=== PATIENT | male | born 1940 | race Caucasian/White ===

== ENCOUNTER 2018-02-27 09:09 | Emergency (ER) | payer OTHER ==
[2018-02-27 10:15] LABS: Absolute Lymphocytes (CBC) 1.2 K/uL (0.7-4.9); Absolute Neutrophil 5.3 K/uL (1.8-8.0); Basophils % 0.4 % (0-1.3); Eosinophils % 0.9 % (0-4.4); Hematocrit 47.3 % (39.6-49.0); Lymphocytes % 15.6 % (15.3-44.8); MCH 29.6 pg (27.0-35.0); MCV 86.9 fL (80-100); MPV 7.9 fL (7.6-11.3); Monocytes % 12.9 % (3.3-12.3); RBC Red Blood Cell Count 5.45 M/uL (4.33-5.43)
[2018-02-27 10:32] LABS: Albumin 3.3 g/dL (3.4-5.0); Bilirubin Direct 0.1 mg/dL (0-0.2); Bilirubin Total 0.4 mg/dL (0.2-1.0); Protein, Total 7.2 g/dL (6.4-8.2)
--- NOTE | 2018-02-27 11:19 | RAD REPORT ---
EXAM DESCRIPTION: CTAbdomen Pelvis W Contrast - 02/27/2018 11:08 am CLINICAL HISTORY: Abdominal pain. iv contrast only;Nausea / vomiting COMPARISON: CT ABD PELVIS W CONTRAST dated 01/29/2014 TECHNIQUE: Biphasic CT imaging of the abdomen and pelvis was performed with 100 ml non-ionic IV cont rast. All CT scans are performed using dose optimization technique as appropriate and may include automated exposure control or mA/KV adjustment according to patient size. FINDINGS: Subtle interstitial lung opacities are present in the posterior right base suggesting scar ring, aspiration or developing pneumonia. The liver demonstrates a couple of tiny low-density lesions, incompletely assessed but likely cysts. No focal liver mass or biliary dilatation. The spleen, pancreas and adrenal glands are normal. Puncta te bilateral nephrolithiasis. No hydronephrosis. Moderate aortic atherosclerosis is seen. No bowel obstruction, free air, free fluid or abscess. Several mildly inflamed small bowel loops are seen in the right lower abdomen. Subtle soft tissue irregularity is seen involving the cecum. The corrie endix is normal. Sigmoid diverticulosis is present without diverticulitis. No evidence of significant lymphadenopathy. Small fat containing inguinal hernias, larger on the left. No suspicious bony findings. IMPRESSION: Several mildly inflamed small bowel loops are present in the right lower quadrant of the abdomen suggesting a nonspecific enteritis. The appendix is normal. 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 Advise follow -up colonoscopy not recently performed. Punctate bilateral nephrolithiasis. Subtle interstitial lung marking prominence in the right base may represent an area of aspiration, sc arring or developing pneumonia.
[2018-02-27] MEDS ORDERED: NA CHLORIDE 0.9% 500 ML ONE (11:52)
[2018-02-27] MEDS ORDERED: ONDANSETRON 4 MG/2 ML VIAL ONE (12:06)
[2018-02-27] MEDS ORDERED: levoFLOXacin 500 MG TAB ONE (12:06)
--- NOTE | 2018-02-27 12:48 | ER ---
Nurse's Notes [facility] Name: Jocelyn Ernst Age: 77 yrs Sex: Male : 1940 Arrival Date: 02/27/2018 Time: 09:12 Bed 5 Private MD: Rudy Dias T Diagnosis: Nausea and vomiting;Diarrhea, unspecified;Pneumonia, unspecified organism;Acute sinusitis Presentation: 02/27 09:51 Presenting complaint: Patient states: n/v/d since Sunday, denies abd pain. Transition sv of care: patient was not received from another setting of care. Onset of symptoms was February 25, 2018. Risk Assessment: Do you want to hurt yourself or someone else? Patient reports no desire to harm self or others. Initial Sepsis Screen: Does the patient meet any 2 criteria? No. Patient's initial sepsis screen is negative. Does the patient have a suspected source of infection? No. Patient's initial sepsis screen is negative. Care prior to arrival: None. 09:51 Method Of Arrival: Ambulatory sv 09:51 Acuity: PUSHPA 3 sv Triage Assessment: 09:54 General: Appears in no apparent distress. comfortable, well developed, Behavior is sv calm, cooperative, appropriate for age. Pain: Denies pain. Neuro: Level of Consciousness is awake, alert, obeys commands, Oriented to person, place, time, situation, Moves all extremities. Full function Gait is steady. Respiratory: Respiratory effort is even, unlabored, Respiratory pattern is regular, symmetrical. GI: Reports diarrhea, nausea, vomiting. Derm: Skin is normal. Historical: - Allergies: 09:53 Augmentin; sv 09:53 Lipitor; sv 09:53 Plavix; sv 09:53 Prednisone; sv 09:53 Toprol XL; sv 09:58 diltasone; sv 09:58 Spiriva with HandiHaler; sv 09:58 Proscar; sv 09:58 Pravachol; sv - PMHx: 09:53 Hyperlipidemia; Hypertension; sv - PSHx: 09:53 Heart Surgery; eye implants; right hand; nostril; left eye laser; Carotid surgery; sv - Immunization history:: Flu vaccine is up to date. - Social history:: Smoking status: Patient/guardian denies using tobacco, Patient uses alcohol, but reports only rare drinking. - Ebola Screening: : No symptoms or risks identified at this time. Screenin:54 Abuse screen: Denies threats or abuse. Denies injuries from another. Nutritional sv screening: No deficits noted. Tuberculosis screening: No symptoms or risk factors identified. Fall Risk None identified. Assessment: 10:53 Reassessment: Patient appears in no apparent distress at this time. No changes from sv previously documented assessment. Patient and/or family updated on plan of care and expected duration. Pain level reassessed. Patient is alert, oriented x 3, equal unlabored respirations, skin warm/dry/pink. Pt stated that he is also having sinus drainage that started maybe last night. Informed Whit PASTEURIZER. 11:57 Reassessment: Pt brought water for PO challenge. sv 12:00 Reassessment: Patient appears in no apparent distress at this time. No changes from sv previously documented assessment. Patient and/or family updated on plan of care and expected duration. Pain level reassessed. Patient is alert, oriented x 3, equal unlabored respirations, skin warm/dry/pink. 12:00 Reassessment: Pt requesting more water. Water given to pt. sv Vital Signs: 09:53 BP 173 / 82; Pulse 78; Resp 18; Temp 98; Pulse Ox 96% ; Weight 99.79 kg; Height 6 ft. 1 sv in. (185.42 cm); Pain 0/10; 10:35 BP 158 / 70; Pulse 62; Resp 18; Pulse Ox 97% ; sv 11:55 BP 165 / 63 LA Supine (auto/lg); Pulse 71; Resp 18; Pulse Ox 97% on R/A; ag 11:55 BP 162 / 81 LA Sitting (auto/lg); Pulse 68; Resp 17; Pulse Ox 95% ; ag 11:55 BP 134 / 65 LA Standing (auto/lg); Pulse 66; Resp 18; Pulse Ox 100% on R/A; ag 09:53 Body Mass Index 29.03 (99.79 kg, 185.42 cm) sv ED Course: 09:12 Patient arrived in ED. sb2 09:13 Rudy Dias MD is Private Physician. sb2 09:43 Molly Hahn, PARRISH is Primary Nurse. sv 09:45 [facility] kb 09:45 Aaron Nixon MD is Attending Physician. kb 09:51 Triage completed. sv 09:53 Arm band placed on Patient placed in an exam room, on a stretcher. sv 09:54 Nurse Practitioner and/or Physician Cardiac Surgeon to see patient. sv 09:54 Patient has correct armband on for positive identification. Placed in gown. Bed in low sv position. Adult w/ patient. Pulse ox on. NIBP on. Door closed. Head of bed elevated. 10:12 Basic Metabolic Panel Sent. ag 10:12 CBC with Diff Sent. ag 10:12 Hepatic Function Sent. ag 10:12 Lipase Sent. ag 10:13 Inserted saline lock: 20 gauge in right antecubital area, using aseptic technique. ag Blood collected. 10:[address] Scan. sv 11:[address] via stretcher. sv 11:08 CT Abd/Pelvis - W/Contrast In Process Unspecified. EDMS 12:47 Rudy Dias MD is Referral Physician. kb 13:12 No provider procedures requiring assistance completed. IV discontinued, intact, ss bleeding controlled, No redness/swelling at site. Pressure dressing applied. Administered Medications: 12:00 Drug: NS 0.9% 500 ml Route: IV; Rate: bolus; Site: right antecubital; sv 13:12 Follow up: IV Status: Completed infusion ss 12:00 Drug: Zofran 4 mg Route: IVP; Site: right antecubital; sv 12:20 Follow up: Response: No adverse reaction; Nausea is decreased sg 12:32 Drug: LevaQUIN 500 mg Route: PO; sg 12:42 Follow up: Response: No adverse reaction sv Outcome: 12:47 Discharge ordered by MD. kb 13:12 Discharged to home ambulatory. ss 13:12 Condition: good 13:12 Discharge instructions given to patient, family, Instructed on discharge instructions, follow up and referral plans. medication usage, Demonstrated understanding of instructions, follow-up care, medications, Prescriptions given X 2. 13:13 Patient left the ED. ss Signatures: Dispatcher [employer] EDIL Whit Medina, GABRIEL RANDOLPH-Molly Chow RN PARRISH Tray Weldon RN RN sg Smirch, Shelby, RN RN Nila Reinoso ag Vanda Penn sb2 Corrections: (The following items were deleted from the chart) 10:05 09:53 Allergies: Demerol; sv sv
--- NOTE | 2018-02-27 12:48 | EDPHYS ---
Physician Documentation [facility] Name: Jocelyn Ernst Age: 77 yrs Sex: Male : 1940 Arrival Date: 02/27/2018 Time: 09:12 Bed 5 Private MD: Rudy Dias T ED Physician Aaron Nixon HPI: 02/27 11:47 This 77 yrs old Male presents to ER via Ambulatory with complaints of kb Nausea/Vomiting/Diarrhea. 11:47 The patient presents to the emergency department with nausea, vomiting, diarrhea. kb 11:47 Onset: The symptoms/episode began/occurred 3 day(s) ago. Possible causes: unknown. The kb symptoms are aggravated by nothing. The symptoms are alleviated by nothing. Associated signs and symptoms: Pertinent positives: diarrhea, nausea, vomiting, Pertinent negatives: abdominal pain, anorexia, belching, constipation, dysuria, fever, flatulence, GI bleeding, hematuria. Severity of symptoms: At their worst the symptoms were moderate in the emergency department the symptoms are unchanged. The patient has not experienced similar symptoms in the past. The patient has not recently seen a physician. Pt reports diarrhea since Sunday morning, nausea and vomiting since last night. States he also has sinus problems. Reports he always has drainage, but it is increased lately. Has been to Dr James for this and was told to take a decongestant, mucinex and flonase, but he hasn't been taking them. Historical: - Allergies: 09:53 Augmentin; sv 09:53 Lipitor; sv 09:53 Plavix; sv 09:53 Prednisone; sv 09:53 Toprol XL; sv 09:58 diltasone; sv 09:58 Spiriva with HandiHaler; sv 09:58 Proscar; sv 09:58 Pravachol; sv - PMHx: 09:53 Hyperlipidemia; Hypertension; sv - PSHx: 09:53 Heart Surgery; eye implants; right hand; nostril; left eye laser; Carotid surgery; sv - Immunization history:: Flu vaccine is up to date. - Social history:: Smoking status: Patient/guardian denies using tobacco, Patient uses alcohol, but reports only rare drinking. - Ebola Screening: : No symptoms or risks identified at this time. ROS: 11:51 Constitutional: Negative for fever, chills, and weight loss, Neck: Negative for injury, kb pain, and swelling, Cardiovascular: Negative for chest pain, palpitations, and edema, : Negative for injury, bleeding, discharge, and swelling, MS/Extremity: Negative for injury and deformity, Skin: Negative for injury, rash, and discoloration, Neuro: Negative for headache, weakness, numbness, tingling, and seizure. 11:51 ENT: Positive for rhinorrhea, sinus congestion, sinus pain. 11:51 Respiratory: Positive for cough, Negative for dyspnea on exertion, hemoptysis, orthopnea, pleurisy, shortness of breath, sputum production, wheezing. 11:51 Abdomen/GI: Positive for nausea, vomiting, and diarrhea, Negative for abdominal pain, constipation, abdominal cramps, abdominal distension, anorexia. Exam: 11:51 Constitutional: This is a well developed, well nourished patient who is awake, alert, kb and in no acute distress. Head/Face: Normocephalic, atraumatic. Neck: Trachea midline, no thyromegaly or masses palpated, and no cervical lymphadenopathy. Supple, full range of motion without nuchal rigidity, or vertebral point tenderness. No Meningismus. Chest/axilla: Normal chest wall appearance and motion. Nontender with no deformity. No lesions are appreciated. Cardiovascular: Regular rate and rhythm with a normal S1 and S2. No gallops, murmurs, or rubs. Normal PMI, no JVD. No pulse deficits. Respiratory: Lungs have equal breath sounds bilaterally, clear to auscultation and percussion. No rales, rhonchi or wheezes noted. No increased work of breathing, no retractions or nasal flaring. Abdomen/GI: Soft, non-tender, with normal bowel sounds. No distension or tympany. No guarding or rebound. No evidence of tenderness throughout. Skin: Warm, dry with normal turgor. Normal color with no rashes, no lesions, and no evidence of cellulitis. MS/ Extremity: Pulses equal, no cyanosis. Neurovascular intact. Full, normal range of motion. Neuro: Awake and alert, GCS 15, oriented to person, place, time, and situation. Cranial nerves II-XII grossly intact. Motor strength 5/5 in all extremities. Sensory grossly intact. Cerebellar exam normal. Normal gait. 11:51 ENT: External ear(s): are unremarkable, Ear canal(s): are normal, TM's: are normal, Nose: is normal, Mouth: is normal, Posterior pharynx: pooling of secretions, that are mild. Vital Signs: 09:53 BP 173 / 82; Pulse 78; Resp 18; Temp 98; Pulse Ox 96% ; Weight 99.79 kg; Height 6 ft. 1 sv in. (185.42 cm); Pain 0/10; 10:35 BP 158 / 70; Pulse 62; Resp 18; Pulse Ox 97% ; sv 11:55 BP 165 / 63 LA Supine (auto/lg); Pulse 71; Resp 18; Pulse Ox 97% on R/A; ag 11:55 BP 162 / 81 LA Sitting (auto/lg); Pulse 68; Resp 17; Pulse Ox 95% ; ag 11:55 BP 134 / 65 LA Standing (auto/lg); Pulse 66; Resp 18; Pulse Ox 100% on R/A; ag 09:53 Body Mass Index 29.03 (99.79 kg, 185.42 cm) sv MDM: 09:45 Patient medically screened. kb 11:35 Data reviewed: vital signs, nurses notes. Data interpreted: Pulse oximetry: on room air kb is 97 %. Interpretation: normal. 12:19 Counseling: I had a detailed discussion with the patient and/or guardian regarding: the kb historical points, exam findings, and any diagnostic results supporting the discharge/admit diagnosis, lab results, radiology results, the need for outpatient follow up, a family practitioner, to return to the emergency department if symptoms worsen or persist or if there are any questions or concerns that arise at home. 02/27 09:55 Order name: Basic Metabolic Panel; Complete Time: 10:38 kb 02/27 09:55 Order name: CBC with Diff; Complete Time: 10:17 kb 02/27 09:55 Order name: Hepatic Function; Complete Time: 10:38 kb 02/27 09:55 Order name: Lipase; Complete Time: 10:38 kb 02/27 10:45 Order name: CT Abd/Pelvis - W/Contrast; Complete Time: 11:24 kb 02/27 09:55 Order name: IV Saline Lock; Complete Time: 10:12 kb 02/27 09:55 Order name: Labs collected and sent; Complete Time: 10:13 kb 02/27 11:35 Order name: PO challenge; Complete Time: 12:42 kb 02/27 11:35 Order name: Orthostatics; Complete Time: 12:42 kb Administered Medications: 12:00 Drug: NS 0.9% 500 ml Route: IV; Rate: bolus; Site: right antecubital; sv 13:12 Follow up: IV Status: Completed infusion ss 12:00 Drug: Zofran 4 mg Route: IVP; Site: right antecubital; sv 12:20 Follow up: Response: No adverse reaction; Nausea is decreased sg 12:32 Drug: LevaQUIN 500 mg Route: PO; sg 12:42 Follow up: Response: No adverse reaction sv Disposition: 02/28 07:34 Co-signature as Attending Physician, Aaron Nixon MD I agree with the assessment and kdr plan of care. Disposition: 02/27/18 12:47 Discharged to Home. Impression: Nausea and vomiting, Diarrhea, unspecified, Pneumonia, unspecified organism, Acute sinusitis. - Condition is Stable. - Discharge Instructions: Food Choices to Help Relieve Diarrhea, Adult, Viral Gastroenteritis, Adult, [id number], Sinusitis, Adult, [id number]. - Prescriptions for Levaquin 500 mg Oral Tablet - take 1 tablet by ORAL route once daily for 7 days; 7 tablet. Zofran 4 mg Oral Tablet - take 1 tablet by ORAL route every 6 hours As needed; 20 tablet. - Thank You Letter, Antibiotic Education, Prescription Opioid Use, Medication Reconciliation Form form. - Follow up: Emergency Department; When: As needed; Reason: Worsening of condition. Follow up: Rudy Dias; When: 2 - 3 days; Reason: Recheck today's complaints, Continuance of care, Re-evaluation by your physician. Signatures: Dispatcher [employer] EDNE Whit Medina, AGUSTÍN-C CONSTRUCTION SUPERINTENDENT-Molly Chow RN RN Tray Garcia RN RN sg Rittger, Kevin, MD MD [facility] Betty Zarate RN RN ss Corrections: (The following items were deleted from the chart) 02/27 10:05 09:53 Allergies: Demerol; sv sv 13:13 12:47 02/27/2018 12:47 Discharged to Home. Impression: Nausea and vomiting; Diarrhea, ss unspecified; Pneumonia, unspecified organism; Acute sinusitis. Condition is Stable. Discharge Instructions: Food Choices to Help Relieve Diarrhea, Adult, Viral Gastroenteritis, Adult, [id number], Sinusitis, Adult, [id number]. Prescriptions for Levaquin 500 mg Oral Tablet - take 1 tablet by ORAL route once daily for 7 days; 7 tablet, Zofran 4 mg Oral Tablet - take 1 tablet by ORAL route every 6 hours As needed; 20 tablet. and Forms are Medication Reconciliation Form, Thank You Letter, Antibiotic Education, Prescription Opioid Use. Follow up: Emergency Department; When: As needed; Reason: Worsening of condition. Follow up: Rudy Dias; When: 2 - 3 days; Reason: Recheck today's complaints, Continuance of care, Re-evaluation by your physician. kb
== END 2018-02-27 13:13 | disposition home or self-care (01) ==
LOC: ER 09:09
DX: J18.9 Pneumonia, unspecified organism (principal); J01.90 Acute sinusitis, unspecified; R19.7 Diarrhea, unspecified; I10 Essential (primary) hypertension; Z88.1 Allergy status to other antibiotic agents; Z88.8 Allergy status to other drugs, medicaments and biological substances
CPT/HCPCS: 36415; 74177; 80048; 80076; 83690; 85025; J2405; Q9967

== ENCOUNTER 2018-05-27 12:09 | Observation (INO) | payer OTHER ==
[2018-05-27] MEDS ORDERED: METHYLPREDNISOLONE 125 MG INJ ONE (13:46)
[2018-05-27] MEDS ORDERED: LEVALBUTEROL 1.25 MG/3 ML NEB ONE (13:47)
[2018-05-27] MEDS ORDERED: IPRATROPIUM BROM 0.5MG/2.5ML ONE (13:47)
[2018-05-27] MEDS ORDERED: NA CHLORIDE 0.9% 1,000 ML ONE (13:47)
[2018-05-27 13:49] LABS: Arterial Blood Carboxyhemoglob 1.4 % (0-1.5); Blood Gas Oxyhemoglobin 95.5 % (94-97)
[2018-05-27 14:19] LABS: Protime INR 1.14
[2018-05-27 14:34] LABS: ALT/SGPT 21 U/L (12-78); AST/SGOT 35 U/L (15-37); Albumin 3.2 g/dL (3.4-5.0); Alkaline Phosphatase 82 U/L (45-117); BUN Blood Urea Nitrogen 17 mg/dL (7-18); Bicarbonate 28 mmol/L (21-32); Bilirubin Direct < 0.1 mg/dL (0-0.2); Bilirubin Total 0.6 mg/dL (0.2-1.0); Glucose Level 83 mg/dL (74-106); Lipase 84 U/L (73-393); NT PRO-BNP 1237 pg/mL (<450); Protein, Total 6.7 g/dL (6.4-8.2); Sodium Level 143 mmol/L (136-145); Troponin (Emerg Dept Use Only) < 0.02 ng/mL (0.0-0.045)
--- NOTE | 2018-05-27 14:37 | RAD REPORT ---
EXAM DESCRIPTION: Danielle Single View05/27/2018 1:44 pm CLINICAL HISTORY: Shortness of breath COMPARISON: 2017 FINDINGS: [id number] bilateral pulmonary opacities. The heart is enlarged. Postsurgical changes involve the chest IMPRESSION: Mild to moderate bilateral pulmonary opacities suspicious for pulmonary edema
--- NOTE | 2018-05-27 14:37 | ER ---
Nurse's Notes [facility] Name: Jocelyn Ernst Age: 77 yrs Sex: Male : 1940 Arrival Date: 05/27/2018 Time: 12:09 Bed 30 Private MD: Rudy Dias T Diagnosis: Dyspnea;Hypoxemia;Unspecified combined systolic (congestive) and diastolic (congestive) heart failure;Cardiomegaly;Essential (primary) hypertension;Bradycardia, unspecified Presentation: 05/27 12:15 Presenting complaint: Worsening SOB x 1 week. Denies fever. Transition of care: patient hb was not received from another setting of care. Onset of symptoms was May 20, 2018. Risk Assessment: Do you want to hurt yourself or someone else? Patient reports no desire to harm self or others. Care prior to arrival: None. 12:15 Method Of Arrival: Ambulatory hb 12:15 Acuity: PUSHPA 3 hb 13:00 Initial Sepsis Screen: Does the patient meet any 2 criteria? RR > 20 per min. Does the ca1 patient have a suspected source of infection? Yes: Productive cough/pneumonia. Triage Assessment: 18:04 Respiratory: ca1 Historical: - Allergies: 12:19 Augmentin; hb 12:19 diltasone; hb 12:19 Lipitor; hb 12:19 Plavix; hb 12:19 Pravachol; hb 12:19 Prednisone; hb 12:19 Proscar; hb 12:19 Spiriva with HandiHaler; hb 12:19 Toprol XL; hb - PMHx: 17:48 Hyperlipidemia; Hypertension; ca1 - PSHx: 17:48 Heart Surgery; eye implants; right hand; nostril; left eye laser; Carotid surgery; ca1 - Immunization history:: Flu vaccine is up to date. - Social history:: Smoking status: Patient/guardian denies using tobacco. - Ebola Screening: : No symptoms or risks identified at this time. Screenin:00 Abuse screen: Denies threats or abuse. Denies injuries from another. Nutritional ca1 screening: No deficits noted. Tuberculosis screening: No symptoms or risk factors identified. Fall Risk 13:00 Fall Risk IV access (20 points). ca1 Assessment: 13:00 General: Appears in no apparent distress. comfortable, Behavior is calm, cooperative, ca1 appropriate for age. General:. Pain: Denies pain. Neuro: Level of Consciousness is awake, alert, obeys commands, Oriented to person, place, time, situation. Cardiovascular: Heart tones S1 S2 present Capillary refill < 3 seconds Patient's skin is warm and dry. Pulses are all present. Rhythm is sinus rhythm. Respiratory: Reports shortness of breath on exertion since about a week ago. Airway is patent Respiratory effort is even, unlabored, Respiratory pattern is regular, symmetrical, Breath sounds are clear bilaterally. Onset: The symptoms/episode began/occurred gradually. GI: Abdomen is flat, non-distended, Bowel sounds present X 4 quads. Abd is soft and non tender X 4 quads. : No deficits noted. No signs and/or symptoms were reported regarding the genitourinary system. EENT: No deficits noted. No signs and/or symptoms were reported regarding the EENT system. Derm: Skin is intact, is healthy with good turgor, Skin is pink, warm \T\ dry. Musculoskeletal: Circulation, motion, and sensation intact. Capillary refill < 3 seconds. 13:55 Reassessment: Patient appears in no apparent distress at this time. Patient and/or ca1 family updated on plan of care and expected duration. Pain level reassessed. Patient is alert, oriented x 3, equal unlabored respirations, skin warm/dry/pink. 14:42 Reassessment: Pt's heart rate is maintaining in the 50's and 60's, however, the patient aj1 is having frequent episodes where his heart rate drops into the 30's and 40's. Notified Dr. Maurer, Order received to make sure patient does not take his Coreg. Patient's family was notified that they should not give the patient any of his home medications unless they are instructed to by his nurse or doctor. 15:35 Reassessment: Patient appears in no apparent distress at this time. Patient and/or ca1 family updated on plan of care and expected duration. Pain level reassessed. Patient is alert, oriented x 3, equal unlabored respirations, skin warm/dry/pink. 16:13 Reassessment: Patient appears in no apparent distress at this time. Patient and/or ca1 family updated on plan of care and expected duration. Pain level reassessed. Patient is alert, oriented x 3, equal unlabored respirations, skin warm/dry/pink. 17:08 Reassessment: Patient appears in no apparent distress at this time. Patient and/or ca1 family updated on plan of care and expected duration. Pain level reassessed. Patient is alert, oriented x 3, equal unlabored respirations, skin warm/dry/pink. 18:05 Reassessment: Patient appears in no apparent distress at this time. Patient and/or ca1 family updated on plan of care and expected duration. Pain level reassessed. Patient is alert, oriented x 3, equal unlabored respirations, skin warm/dry/pink. family at bedside Patient states symptoms have improved. Vital Signs: 12:17 BP 192 / 75; Pulse 65; Resp 20; Temp 98.4; Pulse Ox 95% on R/A; Pain 0/10; hb 13:18 BP 185 / 90; Pulse 65; Resp 26; Pulse Ox 100% on 2 lpm NC; ca1 13:55 BP 167 / 78; Pulse 48 MON; Resp 21; Pulse Ox 100% on 2 lpm NC; ca1 14:30 BP 166 / 83; Pulse 48; Resp 19; Pulse Ox 100% on 2 lpm NC; ca1 15:30 BP 184 / 89; Pulse 54; Resp 19; Pulse Ox 98% on 2 lpm NC; ca1 15:45 BP 173 / 74; Pulse 51; Resp 20; Pulse Ox 100% on 2 lpm NC; ca1 16:00 BP 142 / 99; Pulse 56; Resp 22; Pulse Ox 100% on 2 lpm NC; ca1 16:15 BP 192 / 66; Pulse 70; Resp 24; Pulse Ox 100% on 2 lpm NC; ca1 16:30 BP 124 / 85; Pulse 53; Resp 18; Pulse Ox 98% on 2 lpm NC; ca1 17:00 BP 182 / 74; Pulse 57; Resp 19; Pulse Ox 99% on 2 lpm NC; ca1 18:12 BP 167 / 72; Pulse 70; Resp 18; Pulse Ox 97% on 2 lpm NC; ca1 ED Course: 12:09 Patient arrived in ED. as 12:10 Rudy Dias MD is Private Physician. as 12:17 Triage completed. hb 12:18 Arm band placed on. hb 12:58 Dustin Maurer MD is Attending Physician. bertha 12:59 Linn Mar, PARRISH is Primary Nurse. ca1 13:00 Patient has correct armband on for positive identification. Placed in gown. Bed in low ca1 position. Side rails up X2. laboratory monitor on. Pulse ox on. NIBP on. Warm blanket given. 13:27 EKG done, by neurophysiology tech. reviewed by Dustin Maurer MD. 3 13:40 XRAY Chest (1 view) In Process Unspecified. EDMS 13:40 Inserted saline lock: 20 gauge in right antecubital area, using aseptic technique. ca1 Blood collected. 14:34 Teodoro Phelan DO is Hospitalizing Provider. [facility] 14:52 CT completed. Patient tolerated procedure well. Patient moved to CT. Patient moved back or from CT. 14:52 CT Chest For PE Angio In Process Unspecified. EDMS 17:58 No provider procedures requiring assistance completed. ca1 18:02 Patient admitted, IV remains in place. ca1 Administered Medications: 13:30 Drug: AtroVENT Aerosol 0.5 mg Route: Inhalation; ca1 13:35 Drug: SOLU-Medrol 125 mg Route: IVP; Site: right antecubital; ca1 17:09 Follow up: Response: No adverse reaction ca1 13:35 Drug: Xopenex 2.5 mg Route: Inhalation; ca1 14:34 Not Given (Duplicate Order): NS 0.9% 1000 ml IV at 75 ml/hr continuous bertha 15:40 Drug: Lasix 40 mg Route: IVP; Site: right antecubital; ca1 17:09 Follow up: Urine output 1100 ml; Response: No adverse reaction ca1 Output: 17:06 Urine: 1100ml (Voided); Total: 1100ml. ca1 17:09 Urine: 1100ml; Total: 2200ml. ca1 Outcome: 14:36 Decision to Hospitalize by Provider. bertha 18:02 Admitted to Med/surg accompanied by tech, family with patient, via wheelchair, room ca1 218, with oxygen, with chart, Report called to Valerie Quach RN 18:02 Condition: stable 18:02 Instructed on the need for admit. 18:26 Patient left the ED. ca1 Signatures: Dispatcher [employer] EDJerica Zamorano RN RN aj1 Dustin Maurer MD MD cha Martinez, Amelia as Baxter, Heather, RN RN hb Jordan, Nathan nj Montes, Shakira 3 Linn Mar RN RN ca1
--- NOTE | 2018-05-27 14:37 | EDPHYS ---
Physician Documentation [facility] Name: Jocelyn Ernst Age: 77 yrs Sex: Male : 1940 Arrival Date: 05/27/2018 Time: 12:09 Bed 30 Private MD: Rudy Dias T ED Physician Dustin Maurer HPI: 05/27 13:06 This 77 yrs old Male presents to ER via Ambulatory with complaints of bertha Shortness Of Breath. 13:06 This 77 yrs old Male presents to ER via Ambulatory with complaints of bertha Shortness Of Breath. 13:06 The patient has shortness of breath at rest, with light activity. Onset: The bertha symptoms/episode began/occurred 2 day(s) ago. Duration: The symptoms are continuous, and are steadily getting worse. The patient's shortness of breath has no apparent modifying factors. Severity of symptoms: At their worst the symptoms were mild moderate in the emergency department the symptoms are unchanged. The patient has experienced similar episodes in the past, a few times. Historical: - Allergies: 12:19 Augmentin; hb 12:19 diltasone; hb 12:19 Lipitor; hb 12:19 Plavix; hb 12:19 Pravachol; hb 12:19 Prednisone; hb 12:19 Proscar; hb 12:19 Spiriva with HandiHaler; hb 12:19 Toprol XL; hb - PMHx: 17:48 Hyperlipidemia; Hypertension; ca1 - PSHx: 17:48 Heart Surgery; eye implants; right hand; nostril; left eye laser; Carotid surgery; ca1 - Immunization history:: Flu vaccine is up to date. - Social history:: Smoking status: Patient/guardian denies using tobacco. - Ebola Screening: : No symptoms or risks identified at this time. ROS: 13:07 Constitutional: Negative for fever, chills, and weight loss, Eyes: Negative for injury, bertha pain, redness, and discharge, ENT: Negative for injury, pain, and discharge, Neck: Negative for injury, pain, and swelling, Cardiovascular: Negative for chest pain, palpitations, and edema, Abdomen/GI: Negative for abdominal pain, nausea, vomiting, diarrhea, and constipation, Back: Negative for injury and pain, : Negative for injury, bleeding, discharge, and swelling, MS/Extremity: Negative for injury and deformity, Skin: Negative for injury, rash, and discoloration, Neuro: Negative for headache, weakness, numbness, tingling, and seizure, Psych: Negative for depression, anxiety, suicide ideation, homicidal ideation, and hallucinations, Allergy/Immunology: Negative for hives, rash, and allergies, Endocrine: Negative for neck swelling, polydipsia, polyuria, polyphagia, and marked weight changes, Hematologic/Lymphatic: Negative for swollen nodes, abnormal bleeding, and unusual bruising. 13:07 Respiratory: Positive for cough, shortness of breath, on exertion. Exam: 13:07 Constitutional: This is a well developed, well nourished patient who is awake, alert, bertha and in no acute distress. Head/Face: Normocephalic, atraumatic. Eyes: Pupils equal round and reactive to light, extra-ocular motions intact. Lids and lashes normal. Conjunctiva and sclera are non-icteric and not injected. Cornea within normal limits. Periorbital areas with no swelling, redness, or edema. ENT: Nares patent. No nasal discharge, no septal abnormalities noted. Tympanic membranes are normal and external auditory canals are clear. Oropharynx with no redness, swelling, or masses, exudates, or evidence of obstruction, uvula midline. Mucous membranes moist. Neck: Trachea midline, no thyromegaly or masses palpated, and no cervical lymphadenopathy. Supple, full range of motion without nuchal rigidity, or vertebral point tenderness. No Meningismus. Chest/axilla: Normal chest wall appearance and motion. Nontender with no deformity. No lesions are appreciated. Cardiovascular: Regular rate and rhythm with a normal S1 and S2. No gallops, murmurs, or rubs. Normal PMI, no JVD. No pulse deficits. Abdomen/GI: Soft, non-tender, with normal bowel sounds. No distension or tympany. No guarding or rebound. No evidence of tenderness throughout. Back: No spinal tenderness. No costovertebral tenderness. Full range of motion. Male : Normal genitalia with no discharge or lesions. Skin: Warm, dry with normal turgor. Normal color with no rashes, no lesions, and no evidence of cellulitis. MS/ Extremity: Pulses equal, no cyanosis. Neurovascular intact. Full, normal range of motion. Neuro: Awake and alert, GCS 15, oriented to person, place, time, and situation. Cranial nerves II-XII grossly intact. Motor strength 5/5 in all extremities. Sensory grossly intact. Cerebellar exam normal. Normal gait. Psych: Awake, alert, with orientation to person, place and time. Behavior, mood, and affect are within normal limits. 13:07 Respiratory: mild respiratory distress is noted, moderate respiratory distress is noted, Respirations: labored breathing, that is mild, Breath sounds: decreased breath sounds, that are mild, rhonchi, are not appreciated, stridor, is not appreciated, Respiratory rate: 24 Vital Signs: 12:17 BP 192 / 75; Pulse 65; Resp 20; Temp 98.4; Pulse Ox 95% on R/A; Pain 0/10; hb 13:18 BP 185 / 90; Pulse 65; Resp 26; Pulse Ox 100% on 2 lpm NC; ca1 13:55 BP 167 / 78; Pulse 48 MON; Resp 21; Pulse Ox 100% on 2 lpm NC; ca1 14:30 BP 166 / 83; Pulse 48; Resp 19; Pulse Ox 100% on 2 lpm NC; ca1 15:30 BP 184 / 89; Pulse 54; Resp 19; Pulse Ox 98% on 2 lpm NC; ca1 15:45 BP 173 / 74; Pulse 51; Resp 20; Pulse Ox 100% on 2 lpm NC; ca1 16:00 BP 142 / 99; Pulse 56; Resp 22; Pulse Ox 100% on 2 lpm NC; ca1 16:15 BP 192 / 66; Pulse 70; Resp 24; Pulse Ox 100% on 2 lpm NC; ca1 16:30 BP 124 / 85; Pulse 53; Resp 18; Pulse Ox 98% on 2 lpm NC; ca1 17:00 BP 182 / 74; Pulse 57; Resp 19; Pulse Ox 99% on 2 lpm NC; ca1 18:12 BP 167 / 72; Pulse 70; Resp 18; Pulse Ox 97% on 2 lpm NC; ca1 MDM: 12:59 Patient medically screened. [facility] 13:08 Data reviewed: vital signs, nurses notes, lab test result(s), EKG, radiologic studies, [facility] CT scan, plain films. 05/27 13:01 Order name: Basic Metabolic Panel; Complete Time: 14:39 [facility] 05/27 13:01 Order name: CBC with Diff; Complete Time: 15:07 [facility] 05/27 13:01 Order name: LFT's; Complete Time: 14:39 bertha 05/27 13:01 Order name: Magnesium; Complete Time: 14:39 bertha 05/27 13:01 Order name: NT PRO-BNP; Complete Time: 14:39 [facility] 05/27 13:01 Order name: Troponin (emerg Dept Use Only); Complete Time: 14:39 05/27 13:01 Order name: Lipase; Complete Time: 14:39 bertha 05/27 13:01 Order name: Blood Culture Adult (2) 05/27 13:01 Order name: Urine Culture 05/27 13:06 Order name: ABG; Complete Time: 14:22 [facility] 05/27 13:06 Order name: D-Dimer; Complete Time: 14:40 [facility] 05/27 14:09 Order name: Protime (+INR); Complete Time: 14:40 EDMS 05/27 14:14 Order name: Urine Dipstick--Ancillary (enter results) 05/27 13:01 Order name: XRAY Chest (1 view); Complete Time: 14:40 [facility] 05/27 13:01 Order name: EKG; Complete Time: 13:03 [facility] 05/27 13:01 Order name: Cardiac monitoring; Complete Time: 15:44 [facility] 05/27 13:01 Order name: EKG - Nurse/Tech; Complete Time: 15:44 [facility] 05/27 13:01 Order name: IV Saline Lock; Complete Time: 15:44 05/27 13:01 Order name: Labs collected and sent; Complete Time: 15:44 05/27 13:01 Order name: O2 Per Protocol; Complete Time: 15:44 [facility] 05/27 13:01 Order name: O2 Sat Monitoring; Complete Time: 15:45 [facility] 05/27 13:01 Order name: Urine Dipstick-Ancillary (obtain specimen); Complete Time: 15:45 [facility] 05/27 13:10 Order name: CT Chest For PE Angio; Complete Time: 15:07 [facility] 05/27 14:42 Order name: Echo w/ Doppler [facility] 05/27 13:49 Order name: Labs - recollect needed; Complete Time: 13:50 bd 05/27 13:51 Order name: Labs - recollect needed; Complete Time: 15:43 bd Administered Medications: 13:30 Drug: AtroVENT Aerosol 0.5 mg Route: Inhalation; ca1 13:35 Drug: SOLU-Medrol 125 mg Route: IVP; Site: right antecubital; ca1 17:09 Follow up: Response: No adverse reaction ca1 13:35 Drug: Xopenex 2.5 mg Route: Inhalation; ca1 14:34 Not Given (Duplicate Order): NS 0.9% 1000 ml IV at 75 ml/hr continuous bertha 15:40 Drug: Lasix 40 mg Route: IVP; Site: right antecubital; ca1 17:09 Follow up: Urine output 1100 ml; Response: No adverse reaction ca1 Disposition: 05/27/18 14:36 Hospitalization ordered by Teodoro Phelan for Inpatient Admission. Preliminary diagnosis are Dyspnea, Hypoxemia, Unspecified combined systolic (congestive) and diastolic (congestive) heart failure, Cardiomegaly, Essential (primary) hypertension, Bradycardia, unspecified. - Bed requested for Telemetry/MedSurg (Inpatient). - Status is Inpatient Admission. ca1 - Condition is Stable. - Problem is new. - Symptoms have improved. UTI on Admission? No Signatures: Dispatcher [employer] EDMN Amparo Joaquin Diana, RN RN dw Anderson, Corey, MD MD cha Baxter, Heather, PARRISH SENIOR Linn Mar RN RN ca1 Corrections: (The following items were deleted from the chart) 13:51 13:46 Labs - recollect needed ordered. [facility] 14:09 13:03 PROTIME (+INR)+COAG.LAB.BRZ ordered. [facility] EDMN 14:41 14:36 Hospitalization Ordered by Teodoro Phelan DO for Inpatient Admission. Preliminary bertha diagnosis is Dyspnea; Hypoxemia; Unspecified combined systolic (congestive) and diastolic (congestive) heart failure; Cardiomegaly. Bed requested for Telemetry/MedSurg (Inpatient). Status is Inpatient Admission. Condition is Stable. Problem is new. Symptoms have improved. UTI on Admission? No. bertha 17:37 14:41 05/27/2018 14:36 Hospitalization Ordered by Teodoro Phelan DO for Inpatient dw Admission. Preliminary diagnosis is Dyspnea; Hypoxemia; Unspecified combined systolic (congestive) and diastolic (congestive) heart failure; Cardiomegaly; Essential (primary) hypertension; Bradycardia, unspecified. Bed requested for Telemetry/MedSurg (Inpatient). Status is Inpatient Admission. Condition is Stable. Problem is new. Symptoms have improved. UTI on Admission? No. bertha 18:26 17:37 05/27/2018 14:36 Hospitalization Ordered by Teodoro Phelan DO for Inpatient ca1 Admission. Preliminary diagnosis is Dyspnea; Hypoxemia; Unspecified combined systolic (congestive) and diastolic (congestive) heart failure; Cardiomegaly; Essential (primary) hypertension; Bradycardia, unspecified. Bed requested for Telemetry/MedSurg (Inpatient). Status is Inpatient Admission. Condition is Stable. Problem is new. Symptoms have improved. UTI on Admission? No. dw
[2018-05-27 14:42] LABS: Absolute Lymphocytes (CBC) 1.5 K/uL (0.7-4.9); Absolute Monocytes 0.7 K/uL (0.1-1.3); Absolute Neutrophil 6.1 K/uL (1.8-8.0); Basophils % 0.8 % (0-1.3); Eosinophils % 1.9 % (0-4.4); Hematocrit 44.2 % (39.6-49.0); Lymphocytes % 17.8 % (15.3-44.8); MPV 8.9 fL (7.6-11.3); Monocytes % 8.1 % (3.3-12.3); RBC Red Blood Cell Count 5.04 M/uL (4.33-5.43)
--- NOTE | 2018-05-27 15:01 | RAD REPORT ---
EXAM DESCRIPTION: CT - Chest For Pe Angio - 05/27/2018 2:52 pm CLINICAL HISTORY: Shortness of breath COMPARISON: None. TECHNIQUE: Dynamically enhanced axial 3 mm thick images of the chest were obtained during administra tion of <100> mL Isovue 370 IV contrast. Coronal and oblique reconstruction images were generated and reviewed. Exam utilizes a protocol for optimal evaluation of pulmonary arterial tree. Maximum intensity projections 3D imaging was utilized All CT scans are performed using dose optimization technique as appropriate and may include automated exposure control or mA/KV adjustment according to patient size. FINDINGS: A pulmonary embolus is not seen. A thoracic aortic aneurysm is not noted. Calcified mediastinal lymph nodes Small pleural effusions. A pericardial effusion is not seen. Cardiomegaly Mild to moderate bilateral interstitial lung opacities. IMPRESSION: Negative for a pulmonary embolism. Mild to moderate CHF
--- NOTE | 2018-05-27 15:07 | EKG ---
Test Date: 2018-05-27 Test Time: 13:14:35 Clinical Research Spec: GIL MEASUREMENT RESULTS: Intervals: Rate: 63 SD: 274 QRSD: 132 QT: 426 QTc: 435 Ayr: P: 73 SD: 274 QRS: -60 T: 47 INTERPRETIVE STATEMENTS: Sinus rhythm with 1st degree AV block Right bundle branch block Left acid Inferior infarct, age undetermined Abnormal ECG Compared to ECG 04/14/2016 09:41:59 First degree AV block now present Sinus arrhythmia no longer present Myocardial infarct finding still present Electronically Signed On 05-27-18 15:07:06 CDT by Dada Mao
[2018-05-27] MEDS ORDERED: FUROSEMIDE 40 MG/4 ML VIAL ONE (15:36)
--- NOTE | 2018-05-27 15:43 | P.HP ---
Certification for Inpatient Patient admitted to: Observation With expected LOS: <2 Midnights Patient will require the following post-hospital care: None Practitioner: I am a practitioner with admitting privileges, knowledge of patient current condition, hospital course, and medical plan of care. Services: Services provided to patient in accordance with Admission requirements found in Title 42 Section 412.3 of the Code of Federal Regulations Patient History Date of Service: 05/27/18 Primary Care Provider: Dr. Dias; Cardiology-Dr. Palomo Reason for admission: Shortness of breath History of Present Illness: 77-year-old male presented to emergency room with shortness of breath. Patient with history of CABG x2 vessels, hypertension, hyperlipidemia, hypothyroidism, GERD, BPH and dementia. Family reports patient previously on a Lasix for edema. This has been decreased to the point to where he is only using it as needed. Patient not on a fluid restriction. Patient continue to have increasing shortness of breath today. Edema to the lower extremities also noted. In the ER patient evaluated. Patient found to have pulmonary edema on chest x- ray. BNP elevated. Initial cardiac enzymes unremarkable. CBC and BMP stable. CT chest showed mild CHF with no evidence of pulmonary embolism. Patient was admitted for treatment. Diuretic therapy started. When I saw the patient in the ER, patient appeared stable. Family at bedside. Patient with nasal cannula. Patient not on a fluid restriction at home. Takes Lasix as needed. Allergies amoxicillin [From Augmentin] Allergy (Unverified 04/14/16 12:24) Unknown atorvastatin [From Lipitor] Allergy (Unverified 04/14/16 12:24) Unknown clavulanic acid [From Augmentin] Allergy (Unverified 04/14/16 12:24) Unknown clopidogrel [From Plavix] Allergy (Unverified 04/14/16 12:24) Unknown metoprolol [From Toprol XL] Allergy (Unverified 04/14/16 12:24) Unknown prednisone Allergy (Unverified 04/14/16 12:24) Unknown Home medications list reviewed: Yes - Past Medical/Surgical History Diabetic: No -: Chronic systolic CHF -: CAD with prior CABG -: Hypertension -: Hyperlipidemia -: GERD -: Hypothyroidism -: BPH -: Dementia -: Carotid stenosis -: Cardiac stent -: CABG x2 vessels -: Carpal tunnel Psychosocial/ Personal History: Patient is - Family History Family History: Reviewed- Non-Contributory - Social History Smoking Status: Never smoker Alcohol use: Yes CD- Drugs: No Caffeine use: Yes Place of Residence: Home Review of Systems General: As per HPI Eyes: Unremarkable ENT: Unremarkable Respiratory: Shortness of Breath, SOB with Excertion, As per HPI Cardiovascular: Edema, As per HPI Gastrointestinal: Unremarkable Genitourinary: Unremarkable Musculoskeletal: Unremarkable Integumentary: As per HPI Neurological: Unremarkable Lymphatics: Unremarkable Physical Examination - Physical Exam General: Alert, In no apparent distress, Oriented x3, Cooperative HEENT: Atraumatic, Normocephalic, PERRLA, Mucous membr. moist/pink Neck: Supple, No Thyromegaly Respiratory: Crackles/rales (Crackles to the bases bilateral) Cardiovascular: Normal pulses, Regular rate/rhythm Gastrointestinal: Normal bowel sounds, Soft and benign, Non-distended, No tenderness, No masses, No rebound, No guarding Musculoskeletal: No erythema, No tenderness, No warmth Integumentary: No erythema, No warmth, No cyanosis, Tenderness/swelling (1 to 2 + pitting edema to the lower extremities bilateral) Neurological: Normal speech, Normal strength at 5/5 x4 extr, Normal tone, Normal affect - Studies Laboratory Data (last 24 hrs) 05/27/18 14:00: PT 13.4 H, INR 1.14 05/27/18 14:00: PT Cancelled, INR Cancelled 05/27/18 14:00: WBC 8.6, Hgb 14.7, Hct 44.2, Plt Count 199 05/27/18 14:00: Sodium 143, Potassium 5.0, BUN 17, Creatinine 0.79, Glucose 83, Magnesium 2.0, Total Bilirubin 0.6, AST 35, ALT 21, Alkaline Phosphatase 82, Lipase 84 Assessment and Plan - Plan Impression: Shortness of breath secondary to acute on chronic systolic CHF CAD with prior CABG x2 vessels Hypertension Hyperlipidemia Hypothyroidism GERD BPH Dementia Plan: Shortness of breath secondary to acute on chronic systolic CHF: Patient will be admitted for further treatment. Will start Lasix IV 40 mg twice daily. Will teach on 1500 cc per day fluid restriction and CHF. Will obtain echocardiogram to confirm systolic CHF. Cardiology consulted for further recommendation. Anticipate discharge in the next 1-2 days. If much improved as early as tomorrow. Recheck chest x-ray tomorrow. Wean off oxygen. CAD with prior CABG x2 vessels: Continue home medication including aspirin Hypertension: Continue with home medication-carvedilol. Hyperlipidemia: Continue home medication Zocor. Hypothyroidism: Will check tsh and free T4. Will continue with home medication GERD: Continue with home medication. BPH: Continue home medication. Dementia: Continue home medication Discharge Plan: Home Plan to discharge in: 24 Hours - Advance Directives Does patient have a Living Will: No Does patient have a Durable POA for Healthcare: No - Code Status/Comfort Care Code Status Assessed: Yes (Patient full code.) Time Spent Managing Pts Care (In Minutes): 55
[2018-05-27 15:51] LABS: Urine Blood NEGATIVE (NEG); Urine Glucose 2+ (NEG); Urine Protein 2+ (NEG); Urine Specific Gravity 1.025 (1.005-1.030)
[2018-05-27] MEDS ORDERED: ACETAMINOPHEN 500 MG TAB PO PRN (18:51)
[2018-05-27] MEDS ORDERED: CARVEDILOL 3.125 MG TAB PO SCH (18:51)
[2018-05-27] MEDS ORDERED: ONDANSETRON 4 MG/2 ML VIAL IV PRN (18:51)
[2018-05-27 19:59] LABS: CKMB Creatine Kinase MB 1.9 ng/mL (0.3-3.6); Creatine Phosphokinase 60 U/L (39-308); Troponin I < 0.02 ng/mL (0.0-0.045)
[2018-05-27] MEDS ORDERED: FINASTERIDE 5 MG TAB PO SCH (21:00)
[2018-05-27] MEDS ORDERED: DONEPEZIL HCL 5 MG TAB PO SCH (21:00)
[2018-05-27] MEDS: MEMANTINE HCL 10 MG TABLET PO SCH (21:48)
[2018-05-27] MEDS: FUROSEMIDE 40 MG/4 ML VIAL IV SCH (21:48)
[2018-05-27 23:35] LABS: Urine Appearance CLOUDY; Urine Bilirubin NEGATIVE (NEG); Urine Blood 3+ (NEG); Urine Color YELLOW; Urine Glucose NEGATIVE (NEG); Urine Protein 1+ (NEG); Urine Specific Gravity >=1.030 (1.005-1.030); Urine pH 5.5 (5.0-7.0)
[2018-05-27 23:36] LABS: Urine Microscopic Reflex ORDER UMIC
[2018-05-28 00:38] LABS: Urine Bacteria <20 /HPF (NONE SEEN); Urine Culture Reflex Order NOT NEEDED; Urine RBC >50 /HPF (NONE SEEN)
[2018-05-28 04:31] LABS: Absolute Lymphocytes (CBC) 0.9 K/uL (0.7-4.9); Absolute Monocytes 0.6 K/uL (0.1-1.3); Absolute Neutrophil 10.1 K/uL (1.8-8.0); Basophils % 0.1 % (0-1.3); Hematocrit 44.9 % (39.6-49.0); Lymphocytes % 8.1 % (15.3-44.8); MPV 8.9 fL (7.6-11.3); Monocytes % 5.2 % (3.3-12.3); RBC Red Blood Cell Count 5.18 M/uL (4.33-5.43)
[2018-05-28 04:40] LABS: CKMB Creatine Kinase MB 1.5 ng/mL (0.3-3.6); Creatine Phosphokinase 56 U/L (39-308); Troponin I < 0.02 ng/mL (0.0-0.045)
[2018-05-28 04:43] LABS: BUN Blood Urea Nitrogen 19 mg/dL (7-18); Bicarbonate 29 mmol/L (21-32); Glucose Level 121 mg/dL (74-106); HDL Cholesterol 34 mg/dL (40-60); LDL Cholesterol, Calculated 61 (<130); Potassium 3.9 mmol/L (3.5-5.1); Sodium Level 144 mmol/L (136-145)
[2018-05-28 05:10] LABS: Blood Morphology Comment NOT SEEN (NOT SEEN); Platelet Estimate ADEQ; Urine White Blood Cell Casts OK
[2018-05-28] MEDS ORDERED: POTASSIUM 25 MEQ EFFERV TAB PO ONE (05:35)
[2018-05-28] MEDS ORDERED: PANTOPRAZOLE 40MG TABLET PO SCH (06:30)
--- NOTE | 2018-05-28 08:09 | ECHO ---
HEIGHT: 6 ft 1 in WEIGHT: 216 lb 0 oz DATE OF STUDY: 05/27/[address]: Dustin Maurer MD 2-DIMENSIONAL: YES M.MODE: YES DOPPLER: YES COLOR FLOW: YES TDS: NO PORTABLE: NO DEFINITY: NO BUBBLE STUDY: NO DIAGNOSIS: CONGESTIVE HEART FAILURE CARDIAC HISTORY: CATHERIZATION: YES SURGERY: YES PROSTHETIC VALVE: NO PACEMAKER: NO MEASUREMENTS (cm) DIASTOLIC (NORMALS) SYSTOLIC (NORMALS) IVSd 1.2 (0.6-1.2) LA Diam 4.1 (1.9-4.0) LVEF 55% LVIDd 4.7 (3.5-5.7) LVIDs 3.4 (2.0-3.5) %FS 29% LVPWd 1.2 (0.6-1.2) Ao Diam 3.2 (2.0-3.7) 2 DIMENSIONAL ASSESSMENT: RIGHT ATRIUM: NORMAL LEFT ATRIUM: DILATED RIGHT VENTRICLE: NORMAL LEFT VENTRICLE: NORMAL TRICUSPID VALVE: NORMAL MITRAL VALVE: NORMAL PULMONIC VALVE: NORMAL AORTIC VALVE: NORMAL PERICARDIAL EFFUSION: NONE AORTIC ROOT: NORMAL LEFT VENTRICULAR WALL MOTION: NORMAL DOPPLER/COLOR FLOW: MILD MITRAL AND TRICUSPID REGURGITATION. ESTIMATED RIGHT VENTRICULAR SYSTOLIC PRESSURE 35mmHg. BORDERLINE PULMONARY HYPERTENSION. COMMENTS: NORMAL LEFT VENTRICULAR EJECTION FRACTION. DILATED LEFT ATRIUM. MILD MITRAL AND TRICUSPID REGURGITATION. TECHNOLOGIST: Shavonne ESCUDERO
--- NOTE | 2018-05-28 08:23 | RAD REPORT ---
EXAM DESCRIPTION: RAD - Chest Pa And Lat (2 Views) - 05/28/2018 7:38 am CLINICAL HISTORY: follow up CHF Chest pain. COMPARISON: Chest Single View dated 05/27/2018; Chest Single View dated 04/14/2016; ABDOMEN 1 VIEW KUB dated 12/16/2013; CHEST PA AND LAT 2 VIEW dated 12/31/2012; Chest For Pe Angio dated 05/27/2018 FINDINGS: Prominent interstitial markings again noted bilaterally, unchanged. The heart is mildly en larged in size. Sternotomy wires present. IMPRESSION: Stable chest since 05/27/2018.
[2018-05-28] MEDS ORDERED: ENOXAPARIN 40 MG/0.4 ML SQ SCH (09:00)
[2018-05-28] MEDS ORDERED: ASPIRIN 81 MG CHEWABLE TABLET PO SCH (09:00)
[2018-05-28] MEDS ORDERED: PRASUGREL (EFFIENT) 10 MG TAB PO SCH (09:00)
[2018-05-28] MEDS: FUROSEMIDE 40 MG/4 ML VIAL IV SCH (09:14)
[2018-05-28] MEDS: MEMANTINE HCL 10 MG TABLET PO SCH (09:14)
--- NOTE | 2018-05-28 13:56 | P.DS ---
Admission Date: 05/27/18 Discharge Date: 05/28/18 Primary Care Provider: Dr. Dias; Cardiology-Dr. Palomo Disposition: DC HOME/HOME HEALTH CARE Discharge Condition: GOOD Reason for Admission: Shortness of breath Consultations: Cardiology-Dr. Doss Procedures: CXR: CT scan: FINDINGS: A pulmonary embolus is not seen. A thoracic aortic aneurysm is not noted. Calcified mediastinal lymph nodes Small pleural effusions. A pericardial effusion is not seen. Cardiomegaly Mild to moderate bilateral interstitial lung opacities. IMPRESSION: Negative for a pulmonary embolism. Mild to moderate CHF ECHO: EF 55% LEFT VENTRICULAR WALL MOTION: NORMAL DOPPLER/COLOR FLOW: MILD MITRAL AND TRICUSPID REGURGITATION. ESTIMATED RIGHT VENTRICULAR SYSTOLIC PRESSURE 35mmHg. BORDERLINE PULMONARY HYPERTENSION. COMMENTS: NORMAL LEFT VENTRICULAR EJECTION FRACTION. DILATED LEFT ATRIUM. MILD MITRAL AND TRICUSPID REGURGITATION Medical Problem List: Shortness of breath secondary to acute on chronic diastolic CHF CAD with prior CABG x2 vessels Hypertension Hyperlipidemia Hypothyroidism GERD BPH Dementia Brief History of Present Illness: 77-year-old male presented to emergency room with shortness of breath. Patient with history of CABG x2 vessels, hypertension, hyperlipidemia, hypothyroidism, GERD, BPH and dementia. Family reports patient previously on a Lasix for edema. This has been decreased to the point to where he is only using it as needed. Patient not on a fluid restriction. Patient continue to have increasing shortness of breath today. Edema to the lower extremities also noted. In the ER patient evaluated. Patient found to have pulmonary edema on chest x- ray. BNP elevated. Initial cardiac enzymes unremarkable. CBC and BMP stable. CT chest showed mild CHF with no evidence of pulmonary embolism. Patient was admitted for treatment. Diuretic therapy started. When I saw the patient in the ER, patient appeared stable. Family at bedside. Patient with nasal cannula. Patient not on a fluid restriction at home. Takes Lasix as needed. Hospital Course: Patient presented with shortness of breath secondary to acute on chronic diastolic CHF. Patient had not been using his diuretic medication at home nor was on a fluid restriction. Patient was diuresed during his hospital stay. Cardiology did evaluate the patient. Echocardiogram shows ejection fraction 55% . Mild pulmonary hypertension noted. At discharge patient will continue with Lasix 40 mg 1 pill twice daily along with potassium supplementation 20 mEq daily. He will continue with a 1500 cc per day fluid restriction and low-salt diet. Education on CHF will be provided. Patient was evaluated for home oxygen. Patient qualified. Patient will continue with home oxygen to maintain sats above 90% for his chronic stable CHF at this time. Patient would benefit with home health and physical therapy at discharge to monitor his progress. Recommend to follow up with cardiology in 1-2 weeks to follow up this hospitalization and continue his care. Patient with CAD with prior CABG. Patient will continue with aspirin 81 mg daily and Prasugrel 2.5 mg daily. Patient with hypertension. Patient will continue with carvedilol 3.125 mg 1 pill twice daily. Patient with hyperlipidemia. Patient will continue with Zocor 40 mg daily. Patient with hypothyroidism. Patient continue with his current medication- Levoxyl 88 mcg daily. Recommend to recheck tsh and free T4 in 4-6 weeks to monitor his progress. Patient with GERD. Patient continue with his medication-Zantac 150 mg daily. Patient with BPH. Patient will continue with Proscar 5 mg daily and Flomax 0.4 mg daily. Patient with underlying dementia. Patient will continue with his current medication-Aricept 10 mg twice daily and Namenda 5 mg twice daily. Fall precautions in place. Patient would benefit with home health and physical therapy at discharge. Vital Signs/Physical Exam: Temp Pulse Resp BP Pulse Ox 97.6 F 73 20 164/70 H 95 05/28/18 08:00 05/28/18 08:00 05/28/18 08:00 05/28/18 08:00 05/28/18 08:00 General: Alert, In no apparent distress, Oriented x3, Cooperative HEENT: Atraumatic Neck: Supple Respiratory: Clear to auscultation bilaterally, Normal air movement Cardiovascular: Normal pulses, Regular rate/rhythm Gastrointestinal: Normal bowel sounds, Soft and benign, Non-distended, No tenderness, No masses, No rebound, No guarding Musculoskeletal: No erythema, No tenderness, No warmth Integumentary: Tenderness/swelling (Improvement to the lower extremity edema bilateral) Neurological: Normal speech, Normal strength at 5/5 x4 extr, Normal tone, Normal affect Laboratory Data at Discharge: WBC 11.6 K/uL (4.3-10.9) H D 05/28/18 03:34 Hgb 15.0 g/dL (13.6-17.9) 05/28/18 03:34 Hct 44.9 % (39.6-49.0) 05/28/18 03:34 Plt Count 199 K/uL (152-406) 05/28/18 03:34 PT 13.4 SECONDS (9.5-12.5) H 05/27/18 14:00 INR 1.14 05/27/18 14:00 Sodium 144 mmol/L (136-145) 05/28/18 03:34 Potassium 3.9 mmol/L (3.5-5.1) 05/28/18 03:34 BUN 19 mg/dL (7-18) H 05/28/18 03:34 Creatinine 0.81 mg/dL (0.55-1.3) 05/28/18 03:34 Glucose 121 mg/dL (74-106) H 05/28/18 03:34 Magnesium 2.0 mg/dL (1.8-2.4) 05/28/18 03:34 Total Bilirubin 0.6 mg/dL (0.2-1.0) 05/27/18 14:00 AST 35 U/L (15-37) 05/27/18 14:00 ALT 21 U/L (12-78) 05/27/18 14:00 Alkaline Phosphatase 82 U/L (45-117) 05/27/18 14:00 Troponin I < 0.02 ng/mL (0.0-0.045) 05/28/18 03:34 Triglycerides 37 mg/dL (<150) 05/28/18 03:34 Cholesterol 102 mg/dL (<200) 05/28/18 03:34 HDL Cholesterol 34 mg/dL (40-60) L 05/28/18 03:34 Cholesterol/HDL Ratio 3.00 05/28/18 03:34 Lipase 84 U/L (73-393) 05/27/18 14:00 Home Medications: Aspirin [Adult Aspirin] 81 mg PO DAILY 05/28/18 Carvedilol 3.125 mg PO BID 05/28/18 Donepezil HCl 10 mg PO BID 05/28/18 Finasteride [Proscar*] 5 mg PO DAILY 05/28/18 Furosemide [Lasix] 40 mg PO BIDL #60 tab 05/28/18 Levothyroxine Sodium 88 mcg PO BEDTIME 05/28/18 Memantine HCl 5 mg PO BID 05/28/18 Omeprazole [Prilosec] 40 mg PO DAILY 05/28/18 Potassium Chloride 20 meq PO DAILY 05/28/18 Prasugrel HCl 2.5 mg PO BEDTIME 05/28/18 Ranitidine [Zantac*] 150 mg PO BEDTIME 05/28/18 Simvastatin 40 mg PO BEDTIME 05/28/18 Vit C/E/Zn/Coppr/Lutein/Zeaxan [Preservision Areds 2 Softgel] 1 cap PO BID 05/28 New Medications: Furosemide [Lasix] 40 mg PO BIDL #60 tab Patient Discharge Instructions: 1. Patient will follow up with his PCP in 1 week to follow up this hospitalization. 2. Patient presented with shortness of breath secondary to acute on chronic diastolic CHF. Patient had not been using his diuretic medication at home nor was on a fluid restriction. Patient was diuresed during his hospital stay. Cardiology did evaluate the patient. Echocardiogram shows ejection fraction 55%. Mild pulmonary hypertension noted. At discharge patient will continue with Lasix 40 mg 1 pill twice daily along with potassium supplementation 20 mEq daily. He will continue with a 1500 cc per day fluid restriction and low-salt diet. Education on CHF will be provided. Patient was evaluated for home oxygen. Patient qualified. Patient will continue with home oxygen to maintain sats above 90% for his chronic stable CHF at this time. Patient would benefit with home health and physical therapy at discharge to monitor his progress. Recommend to follow up with cardiology in 1-2 weeks to follow up this hospitalization and continue his care. 3. Patient with CAD with prior CABG. Patient will continue with aspirin 81 mg daily and Prasugrel 2.5 mg daily. 4. Patient with hypertension. Patient will continue with carvedilol 3.125 mg 1 pill twice daily. 5. Patient with hyperlipidemia. Patient will continue with Zocor 40 mg daily. 6. Patient with hypothyroidism. Patient continue with his current medication- Levoxyl 88 mcg daily. Recommend to recheck tsh and free T4 in 4-6 weeks to monitor his progress. 7. Patient with GERD. Patient continue with his medication-Zantac 150 mg daily. 8. Patient with BPH. Patient will continue with Proscar 5 mg daily and Flomax 0.4 mg daily. 9. Patient with underlying dementia. Patient will continue with his current medication-Aricept 10 mg twice daily and Namenda 5 mg twice daily. Fall precautions in place. Patient would benefit with home health and physical therapy at discharge. Diet: 1500 cc per day fluid restriction Activity: Fall precautions Time spent managing pt's care (in minutes): 55
--- NOTE | 2018-05-28 15:52 | EKG ---
Test Date: 2018-05-27 Test Time: 23:00:48 Porcelain Turner: DEAN MEASUREMENT RESULTS: Intervals: Rate: 57 WI: 288 QRSD: 142 QT: 482 QTc: 469 [place]: P: 61 WI: 288 QRS: -51 T: 7 INTERPRETIVE STATEMENTS: Sinus rhythm with 2nd degree AV block (Mobitz II) Left axis deviation Right bundle branch block Minimal voltage criteria for LVH, may be normal variant Inferior infarct, age undetermined Abnormal ECG Compared to ECG 05/27/2018 13:14:35 Left-axis deviation now present Left ventricular hypertrophy now present First degree AV block no longer present Myocardial infarct finding still present Electronically Signed On 05-28-18 15:50:25 CDT by Elmo Doss
--- NOTE | 2018-05-29 07:16 | CON ---
Date of Consultation: 05/28/[address] Phelan' service on 05/27/2018. I saw the patient on 05/28/2018. Reason For Consultation: CHF. History Of Present Illness: Mr. Ernst is 77, has had a history of CABG at [facility], has a history of cerebrovascular disease, endarterectomy, coronary artery disease, congestive heart failure . He had an angioplasty and stent in 2015. His bypass surgery was in 2009. He basically came in wi th shortness of breath, no chest pain. Chest x-ray and CT of the chest show CHF, no pulmonary embolu s. EKG shows left bundle-branch block. Troponin was negative. He was hypertensive at 186/84. D-di tory was at one time of 38. BNP was 1237. He was feeling better after diuresis overnight. Denied pa lpitations or syncope. Denied fevers or chills. Allergies: HE IS ALLERGIC TO PREDNISONE, LIPITOR, PENICILLIN, PLAVIX, AND METOPROLOL. Review of Systems: Negative. Social History: Negative. Family History: Negative. Medications: Listed by Dr. Phelan. Physical Examination: Vital Signs: His blood pressure is 186/84. He was in sinus rhythm. No acute distress, wanting to g o home. HEENT: Negative. Neck: Supple. No bruit. Chest: Clear to auscultation and percussion. Cardiac: Exam revealed a regular rhythm and rate. No murmurs, gallops, or rubs. Abdomen: Benign. Extremities: Revealed no clubbing, cyanosis, or edema. Diagnostic Data: As stated earlier. Impression And Plan: 1.Acute exacerbation of chronic systolic congestive heart failure. 2.Hypertension, poorly controlled. 3.Elevated D-dimer with negative CTA. 4.Elevated BNP secondary to CHF. 5.Right bundle-branch block. 6.CAD, status post CABG in 2009 and stent and the graft in 2015. He also had a history of CVD, stat us post endarterectomy. There is an echocardiogram pending on Mr. Ernst. I am not going to discon tinue or change therapy for now. He is to be diuresed. He needs to have his blood pressure better c ontrolled. No need for cardiac stress testing at this point. I will discuss the case further with Shivani Phelan. He can go home whenever it is okay with him. I will be happy to see him as an outpatient , although I believe Mr. Ernst follows up in [place]. SANTINO/TIMI Voice ID: [id number] Report ID: [id number]
== END 2018-05-28 16:14 | disposition home or self-care (01) ==
LOC: ER 12:09 → ERHOLD 15:16 → 2ND 17:59 → UNDODISOB 05-28 14:42
PROVIDERS: ADMIT Family Medicine; ATTEND Family Medicine
DX: I11.0 Hypertensive heart disease with heart failure (principal); I50.33 Acute on chronic diastolic (congestive) heart failure; I25.10 Atherosclerotic heart disease of native coronary artery without angina pectoris; I45.10 Unspecified right bundle-branch block; E78.5 Hyperlipidemia, unspecified; E03.9 Hypothyroidism, unspecified; K21.9 Gastro-esophageal reflux disease without esophagitis; N40.0 Benign prostatic hyperplasia without lower urinary tract symptoms; F03.90 Unspecified dementia, unspecified severity, without behavioral disturbance, psychotic disturbance, mood disturbance, and anxiety; Z95.1 Presence of aortocoronary bypass graft; Z95.5 Presence of coronary angioplasty implant and graft; Z88.0 Allergy status to penicillin
CPT/HCPCS: 93005 ×2; 93306; 87040 ×2; 87088; 85025 ×2; 80048 ×2; 36415; 83735 ×2; 82550 ×2; 85610; 80061; 85379; 80076; 84443; 84484 ×3; 82553 ×2; 84439; 83690; 83880; 71275; 71045; 71046; 82805; 96375; 96374; 99285; Q9967; J1940 ×3; J1650; J7030; J2930; G0378 ×2; 81003; 81015; 87086

== ENCOUNTER 2020-07-26 10:55 | Emergency (ER) | payer OTHER ==
--- NOTE | 2020-07-26 12:50 | RAD REPORT ---
EXAM DESCRIPTION: RAD - Chest Single View - 07/26/2020 12:41 pm CLINICAL HISTORY: CHEST PAIN Chest pain. COMPARISON: Chest Pa And Lat (2 Views) dated 02/25/2019; Chest Pa And Lat (2 Views) dated 05/28/2018; Chest Single View dated 05/27/2018; Chest Single View dated 04/14/2016 FINDINGS: Portable technique limits examination quality. Mild interstitial pulmonary edema is seen. The heart is moderately enlarged in size. Sternotomy wires present. IMPRESSION: CHF versus volume overload pattern.
--- NOTE | 2020-07-26 12:53 | RAD REPORT ---
EXAM DESCRIPTION: CT - Head Brain Wo Cont - 07/26/2020 12:47 pm CLINICAL HISTORY: HEADACHE Headache, drowsiness COMPARISON: Sinus Wo Cont dated 11/17/2015; HEAD BRAIN W O CONTRAST dated 12/12/2006; Soft Tissue Neck W/Contr dated 04/14/2016 TECHNIQUE: All CT scans are performed using dose optimization technique as appropriate and may inclu de automated exposure control or mA/KV adjustment according to patient size. 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 No midline shift is e vident. The paranasal sinuses and mastoids are clear. The calvarium is intact. IMPRESSION: No acute intracranial abnormality.
[2020-07-26 13:31] LABS: Urine Blood Negative (Negative); Urine Glucose Negative (Negative); Urine Protein Negative (Negative)
[2020-07-26] MEDS ORDERED: NA CHLORIDE 0.9% 1,000 ML ONE (13:32)
[2020-07-26] MEDS ORDERED: ONDANSETRON 4 MG/2 ML VIAL ONE (13:32)
[2020-07-26 13:55] LABS: Protime INR 1.18
[2020-07-26 13:56] LABS: Absolute Lymphocytes (CBC) 1.4 K/uL (0.7-4.9); Basophils % 0.9 % (0-1.3); Hematocrit 44.2 % (39.6-49.0); Lymphocytes % 17.1 % (15.3-44.8); MPV 8.5 fL (7.6-11.3); RBC Red Blood Cell Count 4.93 M/uL (4.33-5.43)
[2020-07-26 13:57] LABS: ALT/SGPT 17 U/L (12-78); AST/SGOT 18 U/L (15-37); Albumin 3.4 g/dL (3.4-5.0); Alkaline Phosphatase 86 U/L (45-117); BUN Blood Urea Nitrogen 19 mg/dL (7-18); Bicarbonate 30 mmol/L (21-32); Bilirubin Direct 0.1 mg/dL (0-0.2); Bilirubin Total 0.4 mg/dL (0.2-1.0); Glucose Level 80 mg/dL (74-106); Magnesium 2.2 mg/dL (1.8-2.4); NT PRO-BNP 1237 pg/mL (<450); Potassium 3.8 mmol/L (3.5-5.1); Protein, Total 6.8 g/dL (6.4-8.2); Sodium Level 144 mmol/L (136-145); Troponin (Emerg Dept Use Only) < 0.02 ng/mL (0.0-0.045)
--- NOTE | 2020-07-26 14:59 | EDPHYS ---
Physician Documentation [facility] Name: Jocelyn Ernst Age: 79 yrs Sex: Male : 1940 Arrival Date: 07/26/2020 Time: 10:58 Bed 17 Private MD: Rudy Dias T ED Physician Audi Ramirez HPI: 07/26 12:19 This 79 yrs old Male presents to ER via Ambulatory with complaints of ma2 Vomiting, Headache, Weakness. 12:19 The patient presents to the emergency department with nausea, vomiting. Onset: The ma2 symptoms/episode began/occurred gradually, 3 hour(s) ago. Associated signs and symptoms: Pertinent negatives: belching, constipation, fever. Severity of symptoms: At their worst the symptoms were mild in the emergency department the symptoms are unchanged. The patient has experienced similar episodes in the past. Historical: - Allergies: 11:55 Augmentin; ca1 11:55 Lipitor; ca1 11:55 Plavix; ca1 11:55 Pravachol; ca1 11:55 Prednisone; ca1 11:55 Proscar; ca1 11:55 Spiriva with HandiHaler; ca1 11:55 Toprol XL; ca1 11:55 diltasone; ca1 - Home Meds: 11:55 Coreg 3.125 mg oral tab 1 tab 2 times per day [Active]; Proscar 5 mg Oral tab 1 tab ca1 once daily [Active]; Zocor 40 mg Oral tab 1 tab once daily [Active]; Synthroid 88 mcg Oral tab 1 tab once daily [Active]; Prilosec 40 mg oral cpDR 1 cap once daily [Active]; potassium chloride 20 mEq oral TbER 1 tab once daily [Active]; aspirin 81 mg Oral TbEC 1 tab once daily [Active]; donepezil 10 mg oral tab 1 tab twice a day [Active]; memantine 5 mg oral tab 1 tabs 2 times per day [Active]; torsemide 10 mg oral tab 2 tabs once daily [Active]; PreserVision AREDS 2 182-317-65-1 nh-vgcx-jw-mg oral cap [Active]; - PMHx: 11:55 Hyperlipidemia; Hypertension; ca1 - PSHx: 11:55 CABG; Heart stents; Carpal Tunnel Repair; ca1 - Immunization history:: Client reports receiving the 2nd dose of the Covid vaccine, Client reports receiving the 1st dose of the Covid vaccine, Pneumococcal vaccine is up to date, Flu vaccine is up to date. - Social history:: Smoking status: Patient denies any tobacco usage or history of. Patient/guardian denies using alcohol, street drugs, The patient lives with family. - Family history:: not pertinent. ROS: 12:19 Constitutional: Negative for fever, chills, and weight loss. ma2 12:19 All other systems are negative. Exam: 12:19 Constitutional: This is a well developed, well nourished patient who is awake, alert, ma2 and in no acute distress. Chest/axilla: Normal chest wall appearance and motion. Nontender with no deformity. No lesions are appreciated. Cardiovascular: Regular rate and rhythm with a normal S1 and S2. No gallops, murmurs, or rubs. Normal PMI, no JVD. No pulse deficits. Respiratory: Lungs have equal breath sounds bilaterally, clear to auscultation and percussion. No rales, rhonchi or wheezes noted. No increased work of breathing, no retractions or nasal flaring. Abdomen/GI: Soft, non-tender, with normal bowel sounds. No distension or tympany. No guarding or rebound. No evidence of tenderness throughout. Neuro: Awake and alert, GCS 15, oriented to person, place, time, and situation. Cranial nerves II-XII grossly intact. Motor strength 5/5 in all extremities. Sensory grossly intact. Cerebellar exam normal. Normal gait. Vital Signs: 11:49 BP 193 / 67; Pulse 55; Resp 18 S; Temp 96.8(TE); Pulse Ox 95% on R/A; Height 6 ft. 1 ca1 in. (185.42 cm) (R); Pain 0/10; 13:00 BP 176 / 66; Pulse 87; Resp 16; Pulse Ox 96% ; bp 14:00 BP 171 / 78; Pulse 57; Resp 16; Pulse Ox 100% ; bp 15:00 BP 166 / 57; Pulse 58; Resp 17; Pulse Ox 100% ; bp MDM: 12:01 Patient medically screened. ma2 12:19 Differential diagnosis: Nonspecific abd pain, gastritis, viral gastroenteritis, ma2 gastroenteritis. 14:54 Data reviewed: vital signs, nurses notes. Counseling: I had a detailed discussion with ma2 the patient and/or guardian regarding: the historical points, exam findings, and any diagnostic results supporting the discharge/admit diagnosis, the presence of at least one elevated blood pressure reading (>120/80) during this emergency department visit, the need for outpatient follow up. Response to treatment: the patient's symptoms have markedly improved after treatment. ED course: I offered and recommended admission for acs rule out, patient would like to be discharged and want us to consult with dr. Doss 1st. since Selam was not oncall, dr. Wynn agreed to come and he saw the patient and talked to him, however patient stated that he want dr. Doss specifically to be consulted. . ED course: case discussed with dr. doss in details and he advised that patient can be discharged and he will see him in the next 48 hrs. patient feels better now and has no symptoms. i advised him to call 911 and return to er should symptoms recur . 07/26 12:15 Order name: Basic Metabolic Panel; Complete Time: 14:01 [facility] 07/26 12:15 Order name: CBC with Diff; Complete Time: 14:34 [facility] 07/26 12:15 Order name: LFT's; Complete Time: 14:01 [facility] 07/26 12:15 Order name: Magnesium; Complete Time: 14:01 [facility] 07/26 12:15 Order name: NT PRO-BNP; Complete Time: 14:01 [facility] 07/26 12:15 Order name: PT-INR; Complete Time: 14:34 [facility] 07/26 12:15 Order name: Troponin (emerg Dept Use Only); Complete Time: 14:01 [facility] 07/26 12:15 Order name: XRAY Chest (1 view); Complete Time: 13:28 [facility] 07/26 12:20 Order name: CT Head Brain wo Cont; Complete Time: 13:28 [facility] 07/26 13:31 Order name: Urine Dipstick-Ancillary; Complete Time: 13:55 EDMS 07/26 14:33 Order name: Blood Culture Adult (2) [facility] 07/26 12:15 Order name: EKG; Complete Time: 12:16 [facility] 07/26 12:15 Order name: Cardiac monitoring; Complete Time: 12:37 [facility] 07/26 12:15 Order name: EKG - Nurse/Tech; Complete Time: 14:28 [facility] 07/26 12:15 Order name: IV Saline Lock; Complete Time: 14:28 [facility] 07/26 12:15 Order name: Labs collected and sent; Complete Time: 14:28 [facility] 07/26 12:15 Order name: O2 Per Protocol; Complete Time: 12:37 ma2 07/26 12:15 Order name: O2 Sat Monitoring; Complete Time: 12:37 [facility] 07/26 12:16 Order name: Urine Dipstick-Ancillary (obtain specimen); Complete Time: 14:28 ma2 Administered Medications: 12:45 Drug: NS 0.9% 1000 ml Route: IV; Rate: 1 bolus; Site: right forearm; bp 15:10 Follow up: IV Status: Completed infusion; IV Intake: 1000ml kg 12:45 Drug: Zofran (Ondansetron) 4 mg Route: IVP; Site: right forearm; bp 15:33 Follow up: Response: No adverse reaction; Marked relief of symptoms kg 15:05 Drug: Rocephin (cefTRIAXone) 1 grams Route: IV; Rate: calculated rate; Site: right bp forearm; 15:32 Follow up: Response: No adverse reaction; IV Status: Completed infusion; IV Intake: 10mlkg Disposition: 07/26/20 14:58 Discharged to Home. Impression: Vomiting. - Condition is Stable. - Discharge Instructions: Nausea and Vomiting, Adult, Urinary Tract Infection, Adult, [id number]. - Prescriptions for Zofran 4 mg Oral Tablet - take 1 tablet by ORAL route every 12 hours As needed; 6 tablet. Bactrim DS 800- 160 mg Oral Tablet - take 1 tablet by ORAL route every 12 hours for 5 days; 10 tablet. - Medication Reconciliation Form, Thank You Letter, Antibiotic Education, Prescription Opioid Use form. - Follow up: Private Physician; When: Tomorrow; Reason: Continuance of care. Signatures: Dispatcher [employer] Sonu Qiu RN RN Audi Feldman MD MD ct2 Linn Mar RN RN ca1 Graham, Kristen kg Corrections: (The following items were deleted from the chart) 15:39 14:58 07/26/2020 14:58 Discharged to Home. Impression: Vomiting. Condition is Stable. bp Forms are Medication Reconciliation Form, Thank You Letter, Antibiotic Education, Prescription Opioid Use. Follow up: Private Physician; When: Tomorrow; Reason: Continuance of care. ma2
--- NOTE | 2020-07-26 14:59 | ER ---
Nurse's Notes [facility] Name: Jocelyn Ernst Age: 79 yrs Sex: Male : 1940 Arrival Date: 07/26/2020 Time: 10:58 Bed 17 Private MD: Rudy Dias T Diagnosis: Vomiting Presentation: 07/26 11:49 Chief complaint: Patient states: at 0300 this morning, I felt lightheaded, got cold ca1 sweats, dizzy, N/V, headache, felt weak all over. Coronavirus screen: Client denies travel out of the [place] in the last 14 days. nausea, vomiting. Client presents with at least one sign or symptom that may indicate coronavirus-19. Standard/surgical mask placed on the client. Provider contacted for isolation considerations. Ebola Screen: Patient negative for fever greater than or equal to 101.5 degrees Fahrenheit, and additional compatible Ebola Virus Disease symptoms Patient denies exposure to infectious person. Patient denies travel to an Ebola-affected area in the 21 days before illness onset. No symptoms or risks identified at this time. Initial Sepsis Screen: Does the patient meet any 2 criteria? No. Patient's initial sepsis screen is negative. Does the patient have a suspected source of infection? No. Patient's initial sepsis screen is negative. Risk Assessment: Do you want to hurt yourself or someone else? Patient reports no desire to harm self or others. Onset of symptoms was July 26, 2020 at 03:00. 11:49 Method Of Arrival: Ambulatory ca1 11:49 Acuity: PUSHPA 2 ca1 Triage Assessment: 12:00 General: Appears in no apparent distress. Behavior is cooperative, appropriate for age, bp anxious. Pain: Complains of pain in head. EENT: No deficits noted. Neuro: No deficits noted. Cardiovascular: Rhythm is sinus bradycardia. Respiratory: No deficits noted. GI: Reports nausea, vomiting. : No signs and/or symptoms were reported regarding the genitourinary system. Derm: No deficits noted. Musculoskeletal: No deficits noted. 15:34 General: Appears in no apparent distress. Behavior is cooperative, appropriate for age, kg anxious, quiet. Historical: - Allergies: 11:55 Augmentin; ca1 11:55 Lipitor; ca1 11:55 Plavix; ca1 11:55 Pravachol; ca1 11:55 Prednisone; ca1 11:55 Proscar; ca1 11:55 Spiriva with HandiHaler; ca1 11:55 Toprol XL; ca1 11:55 diltasone; ca1 - Home Meds: 11:55 Coreg 3.125 mg oral tab 1 tab 2 times per day [Active]; Proscar 5 mg Oral tab 1 tab ca1 once daily [Active]; Zocor 40 mg Oral tab 1 tab once daily [Active]; Synthroid 88 mcg Oral tab 1 tab once daily [Active]; Prilosec 40 mg oral cpDR 1 cap once daily [Active]; potassium chloride 20 mEq oral TbER 1 tab once daily [Active]; aspirin 81 mg Oral TbEC 1 tab once daily [Active]; donepezil 10 mg oral tab 1 tab twice a day [Active]; memantine 5 mg oral tab 1 tabs 2 times per day [Active]; torsemide 10 mg oral tab 2 tabs once daily [Active]; PreserVision AREDS 2 534-542-19-1 ga-tkfg-[id number]-mg oral cap [Active]; - PMHx: 11:55 Hyperlipidemia; Hypertension; ca1 - PSHx: 11:55 CABG; Heart stents; Carpal Tunnel Repair; ca1 - Immunization history:: Client reports receiving the 2nd dose of the Covid vaccine, Client reports receiving the 1st dose of the Covid vaccine, Pneumococcal vaccine is up to date, Flu vaccine is up to date. - Social history:: Smoking status: Patient denies any tobacco usage or history of. Patient/guardian denies using alcohol, street drugs, The patient lives with family. - Family history:: not pertinent. Screenin:33 Abuse screen: Denies threats or abuse. Denies injuries from another. Nutritional kg screening: No deficits noted. Tuberculosis screening: No symptoms or risk factors identified. Fall Risk No fall in past 12 months (0 pts). No secondary diagnosis (0 pts). IV access (20 points). Ambulatory Aid- None/Bed Rest/Nurse Assist (0 pts). Gait- Normal/Bed Rest/Wheelchair (0 pts) Mental Status- Overestimates/Forgets Limitations (15 pts.). Total Art Fall Scale indicates Low Risk Score (25-44 pts). Fall prevention measures have been instituted. Side Rails Up X 2 Placed close to Nursing Station Frequent Obs/Assesments occuring Family Present and informed to notify staff if they need to leave bedside As available Patient and Family Educated on Fall Prevention Program and strategies. Assessment: 12:00 General: SEE TRIAGE NOTE. bp 13:00 Reassessment: Patient appears in no apparent distress at this time. No changes from bp previously documented assessment. GI: Abdomen is non-distended. 14:00 Reassessment: Patient appears in no apparent distress at this time. No changes from bp previously documented assessment. 15:34 GI: Abdomen is non-distended, NO VOMITING. bp 15:34 Reassessment: PT D/C HOME AMBULATORY WITH FAMILY, DX WITH ABDOMINAL PAIN. bp Vital Signs: 11:49 BP 193 / 67; Pulse 55; Resp 18 S; Temp 96.8(TE); Pulse Ox 95% on R/A; Height 6 ft. 1 ca1 in. (185.42 cm) (R); Pain 0/10; 13:00 BP 176 / 66; Pulse 87; Resp 16; Pulse Ox 96% ; bp 14:00 BP 171 / 78; Pulse 57; Resp 16; Pulse Ox 100% ; bp 15:00 BP 166 / 57; Pulse 58; Resp 17; Pulse Ox 100% ; bp ED Course: 10:58 Patient arrived in ED. mr 10:59 Rudy Dias MD is Private Physician. mr 11:51 Triage completed. ca1 11:55 Arm band placed on right wrist. ca1 11:57 Sonu Talbert, PARRISH is Primary Nurse. bp 12:01 Audi Ramirez MD is Attending Physician. ma2 12:41 X-ray completed. Portable x-ray completed in exam room. Patient tolerated procedure sw well. 12:41 XRAY Chest (1 view) In Process Unspecified. EDMS 12:47 CT Head Brain wo Cont In Process Unspecified. EDMS 15:34 No provider procedures requiring assistance completed. IV discontinued, intact, kg bleeding controlled, No redness/swelling at site. Pressure dressing applied. 15:35 Patient has correct armband on for positive identification. Placed in gown. Bed in low kg position. Call light in reach. Side rails up X2. Adult w/ patient. Administered Medications: 12:45 Drug: NS 0.9% 1000 ml Route: IV; Rate: 1 bolus; Site: right forearm; bp 15:10 Follow up: IV Status: Completed infusion; IV Intake: 1000ml kg 12:45 Drug: Zofran (Ondansetron) 4 mg Route: IVP; Site: right forearm; bp 15:33 Follow up: Response: No adverse reaction; Marked relief of symptoms kg 15:05 Drug: Rocephin (cefTRIAXone) 1 grams Route: IV; Rate: calculated rate; Site: right bp forearm; 15:32 Follow up: Response: No adverse reaction; IV Status: Completed infusion; IV Intake: 10mlkg Intake: 15:10 IV: 1000ml; Total: 1000ml. kg 15:32 IV: 10ml; Total: 1010ml. kg Outcome: 14:58 Discharge ordered by . daniel 15:35 Discharged to home ambulatory, with family. kg 15:35 Condition: improved 15:35 Discharge instructions given to patient, family, Instructed on discharge instructions, follow up and referral plans. Demonstrated understanding of instructions, follow-up care, medications, Prescriptions given X 2. 15:39 Patient left the ED. bp Signatures: Dispatcher [employer] EDAL Elisabet Keen LazaroYasmin Brian, RN RN Audi Feldman MD MD ma2 Acob, Cheryl, RN RN [facility] Anaid Campbell kg Corrections: (The following items were deleted from the chart) 15:39 15:34 GI: kg bp
[2020-07-26] MEDS ORDERED: NA CHLORIDE 0.9% 100 ML ONE (15:21)
[2020-07-26] MEDS ORDERED: CEFTRIAXONE/SWI 1gm 1 GM/10 ML SYR ONE (15:21)
[2020-07-26 16:33] VITALS: TEMP 96.8
[2020-07-26 16:36] VITALS: O2SAT 100
[2020-07-26 16:37] VITALS: BP 166/57
--- NOTE | 2020-07-27 11:41 | EKG ---
Test Date: 2020-07-26 Test Time: 13:37:56 [employer]: BP MEASUREMENT RESULTS: Intervals: Rate: 39 [place]: QRSD: 136 QT: 490 QTc: 394 [place]: P: 38 [place]: QRS: -60 T: 7 INTERPRETIVE STATEMENTS: Undetermined rhythm Left axis deviation Right bundle branch block Inferior infarct, age undetermined Abnormal ECG Compared to ECG 05/27/2018 23:00:48 Sinus rhythm no longer present Left ventricular hypertrophy no longer present Myocardial infarct finding still present Electronically Signed On 07-27-20 11:39:32 CDT by Elmo Doss
== END 2020-07-26 15:39 | disposition home or self-care (01) ==
LOC: ER 10:55
DX: R11.2 Nausea with vomiting, unspecified (principal); R51.9 Headache, unspecified; R53.1 Weakness; E78.5 Hyperlipidemia, unspecified; I10 Essential (primary) hypertension; Z95.1 Presence of aortocoronary bypass graft; Z95.5 Presence of coronary angioplasty implant and graft
CPT/HCPCS: 96365; 96361; 93005; 87040 ×2; 85025; 80048; 36415; 83735; 85610; 80076; 81003; 84484; 83880; 70450; 71045; 96375; 99284; J0696; J7030; J2405

== ENCOUNTER 2021-04-14 19:51 | Observation (INO) | payer OTHER ==
--- OUTSIDE RECORDS SUMMARY | 2021-04-14 19:54 | XMS REPORT | Continuity of Care Document ---
:1940 Author Organization [facility] Address [address] [place] [address] [address]. [address] [place] [address] Care Team Providers Name Role Phone Randolph DO Attending Clinician Payers Payer Name Policy Type Policy Number Effective Date Expiration Date S ource Problems This patient has no known problems. Allergies, Adverse Reactions, Alerts Allergy Allergy Status Severity Reaction(s) Onset Inactive Treating Comm ents Source Name Type Date Date Clinician NO KNOWN Drug Active Univers ALLERGIE Class ity of S [facility] Social History Social Habit Start Date Stop Date Quantity Comments Source Exposure to Not sure [facility] SARS-CoV-2 (event) Medica l Branch Sex Assigned At [birth year] [facility] 00:00:00 00:00:00 [facility] Smoking Status Start Date Stop Date Source Unknown if ever smoked [facility] Medications Ordered Filled Start Stop Current Ordering Indication Dosage Frequency Signature Comments Components Source Medication Medication Date Date Medication? Clinician (SIG) Name Name bumetanide 2020- No 1.25mg 1.25 mg, Univers (BUMEX) 10-12 Slow IV ity of injection 19:00: 18:27 [place], [place] 1.25 mg 00 :00 ONCE, 1 Medical dose, e Branch 10/12/20 at 1400, STAT acetaminoph 2020- No 650mg 650 mg, U nivers en 10-12 Oral, ity of (TYLENOL) 18:45: 17:44 ONCE, 1 [place] tablet 650 00 :00 dose, Tue Medi becca mg 10/12/20 at Branch 1345, GILBERT cefTRIAXone 2020- No 1000mg 1,000 mg, Univers (ROCEPHIN) 10-12 IV ity of 1,000 mg in 18:15: 17:49 [place], [place] NaCl 0.9% 00 :00 ONCE, 1 Medical (NS) 50 mL dose, Donal Mena ch MINI-BAG 10/12/20 at 1315, Administer over 30 Minutes, 50 mL
Reas on for Anti-Infec tive: Empiric Therapy for Suspected Infection< br>Empiric Therapy Site: Urine
D uration of therapy: 72 hours cephALEXin 2020- No [id number] 500mg Take 1 Univers (KEFLEX) 10-12 capsule by ity of 500 mg 00:00: 04:59 mouth 3 [place] capsule 00 :00 (three) Medical times [place] daily for 7 days. Immunizations Ordered Filled Immunization Date Status Comments Sourc e Immunization Name Name SARS-COV-2 COVID-19 2020-05-24 Completed Unive rsity of PFIZER VACCINE 00:00:00 [facility] SARS-COV-2 COVID-19 2020-05-03 Completed Unive rsity of PFIZER VACCINE 00:00:00 [facility] Vital Signs Vital Name Observation Time Observation Value Comments Source Systolic blood 2020-10-12 19:00:00 177 mm[Hg] Univer sity of pressure [facility] Diastolic blood 2020-10-12 19:00:00 67 mm[Hg] Unive rsity of pressure [facility] Heart rate 2020-10-12 19:00:00 49 /min [facility] Respiratory rate 2020-10-12 19:00:00 17 /min [facility] Oxygen saturation in 2020-10-12 19:00:00 95 /min [facility] Arterial blood by [facility] Pulse oximetry [place] Body temperature 2020-10-12 14:23:00 36.67 [facility] Body height 2020-10-12 14:23:00 185.4 cm [facility] Body weight 2020-10-12 14:23:00 96.163 kg [facility] BMI 2020-10-12 14:23:00 27.97 kg/m2 [facility] Procedures Procedure Date / Time Performed Performing Clinician Sour e URINALYSIS 2020-10-12 16:10:00 Randolph, [facility] XR CHEST 1 VW 2020-10-12 14:48:41 Singer [facility] TROPONIN I 2020-10-12 14:31:00 Singer [facility] COMP. METABOLIC PANEL 2020-10-12 14:31:00 Jovon Randolph [facility] ([id number]) [facility] CBC WITH DIFF 2020-10-12 14:31:00 Singer [facility] N-TERMINAL PRO-BNP 2020-10-12 14:31:00 Jovon Randolph [facility] COVID-19 (ID NOW RAPID 2020-10-12 14:31:00 Singer Jovon [facility] TESTING) [facility] HB ECG ROUTINE & 2020-10-12 14:27:[address] [facility] RHYTHM STRIP [facility] Encounters Start End Encounter Admission Attending Care Care Encounter Source Date/Time Date/Time Type Type Clinicians Facility Department ID 2021-04-06 Outpatient STLMLC STLMLC [id number] [address] 12:41:03 [id number] 2020-10-12 2020-10-12 Emergency Singer [facility] [id number] Univers 09:20:00 14:22:00 Jovon Bueno [id number] i ty [facility] [id number] [facility] [id number] [facility] becca 084 Branch 2020-10-12 2020-10-12 Emergency X [facility] ERT [id number] Univers 09:15:00 09:15:00 [facility] Results Test Description Test Time Test Comments Results Result Comments Source URINALYSIS 2020-10-12 16:43:55 Test Item Value Reference Range Interpretation Comme nts APPEARANCE (test code = Clear Clear 2591353646) COLOR (test code = 1421506713) Yellow Yellow PH (test code = 7532166419) 4.8-8.0 SP GRAVITY (test code = 1.003-1.030 5521045323) GLU U QUAL (test code = Normal Normal 8299731020) BLOOD (test code = 3096817490) Negative Negative Interference from ascorbic acid may cause false negative results. KETONES (test code = 5268764256) Negative Negative PROTEIN (test code = 2887-8) Negative Negative UROBILIN (test code = Normal Normal 3623565545) BILIRUBIN (test code = Negative Negative 1511401522) NITRITE (test code = 7872546337) Negative Negative LEUK TANNER (test code = 250/uL Negative A 9384732266) RBC/HPF (test code = 6078159710) See_Comment H [Automated message] The system which ge nerated this result transmit juan reference range: 0 - 3 HP F. The reference range was not used to interpret th is result as normal/abnormal . WBC/HPF (test code = 6091000244) See_Comment H [Automated message] The system which ge nerated this result transmit juan reference range: 0 - 5 HP F. The reference range was not used to interpret th is result as normal/abnormal . BACTERIA (test code = Negative Negative 7758426941) MUCOUS (test code = 7068599126) Slight Negative LPF A SQ EPITH (test code = <1 HPF 8492864818) Lab Interpretation (test code = Abnormal 59175-9) [id number] 15:14:04 Test Item Value Reference Interpretation Comments Range TROPONIN I (test 0.014 ng/mL See_Comment [Automated code = 7965019573) message] The system which generated this result transmitted reference range : <=0.034. The reference range was not used to interpret this result as normal/abnormal . ARNOL (test code = Reference (Normal) ARNOL) Range (defined by the 99th percentile reference limit): <= 0.034 ng/mL Note: Cardiac troponin begins to rise 3-4 hours after the onset of ischemia. Repeat in 4-6 hours if the sample was drawn within 3-4 hours of the onset of the symptom and found normal. Diagnosis of myocardial injury is made with acute changes in cTn concentrations with at least one serial sample above the 99th percentile upper reference limit (URL), taken together with the patient's clinical presentation. Biotin has been reported to cause a negative bias, interpret results relative to patient's use of biotin. Lab Interpretation Normal (test code = 46011-1) [id number] 15:10:42 Test Item Value Reference Range Interpretation Comments NT-proBNP (test code 1430 pg/mL See_Comment H [Autom ated = 7328000748) message] The system which generated this result transmitted reference range : <=450. The reference range was not used to interpret this result as normal/abnormal . ARNOL (test code = ARNOL) Biotin has been reported to cause a negative bias, interpret results relative to patient's use of biotin. Lab Interpretation Abnormal (test code = 37521-1) [facility] (ID NOW RAPID TESTING)2020-10-12 15:06:22 Test Item Value Reference Range Interpretation Comments SARS-CoV-2 Rapid ID NOW Not Detected Not Detected (test code = 48560-7) ARNOL (test code = ARNOL) ID NOW COVID-19 Assay is an isothermal nucleic acid amplification test intended for the qualitative detection of nucleic acid from SARS-CoV-2 viral RNA in nasopharyngeal (MC KAY STITCHER) specimens. It is used under Emergency Use Authorization (EUA) by FDA. The limit of detection (LOD) of the assay is 125 Genome Equivalents/mL. A positive result is indicative of the presence of SARS-CoV-2 RNA. ?Clinical correlation with patient history and other diagnostic information is necessary to determine patient infection status. A negative (Not Detected) result does not preclude SARS-CoV-2 infection. In patients with clinical symptoms and other tests that are consistent with SARS-CoV-2 infection, negative results should be treated as presumptive negative and a new specimen should be tested with alternative PCR molecular test. Invalid: Please collect a new specimen for repeat patient testing if clinically indicated. Lab Interpretation Normal (test code = 83884-8) [facility] (35834)2020-10-12 15:02:42 Test Item Value Reference Range Interpretation Comments NA (test code = 141 mmol/L 135-145 9356314857) K (test code = 4.0 mmol/L 3.5-5.0 4540509353) CL (test code = 103 mmol/L 98-108 2313131688) CO2 TOTAL (test code 29 mmol/L 23-31 = 5636433031) AGAP (test code = 2-16 0537263801) BUN (test code = 21 mg/dL 7-23 8985261025) GLUCOSE (test code = 106 mg/dL 70-110 7115263054) CREATININE (test code 0.94 mg/dL 0.60-1.25 = 1100304864) TOTAL BILI (test code 0.6 mg/dL 0.1-1.1 = 4187965533) CALCIUM (test code = 9.6 mg/dL 8.6-10.6 7483023501) T PROTEIN (test code 7.4 g/dL 6.3-8.2 = 1238146838) ALBUMIN (test code = 4.1 g/dL 3.5-5.0 3649747069) ALK PHOS (test code = 86 U/L 34-122 5966143670) ALTv (test code = 12 U/L 5-50 2-6) AST(SGOT) (test code 28 U/L 13-40 = 4332719829) eGFR (test code = mL/min/1.73m2 5514295741) ARNOL (test code = ARNOL) Association of Glomerular Filtration Rate (GFR) and Staging of Kidney Disease* + + +- +| GFR (mL/min/1.73 m2) ?| With Kidney Damage ?| ?Without Kidney Damage+ ------+ ----+ ------+| ?>90 ?| ?Stage one ?| ? Normal ?+ -+ + -+| ?60-89 ?| ?Stage two ?| ? Decreased GFR ? + + +- +| ?30-59 ?| ?Stage three ?| ? Stage three ? + + +- +| ?15-29 ?| ?Stage four ? | ? Stage four ?+ -+ + -+| ?<15 (or dialysis) ? ?| ?Stage five ? | ? Stage five ?+ -+ + -+ *Each stage assumes the associated GFR level has been in effect for at least three months. ?Stages 1 to 5, with or without kidney disease, indicate chronic kidney disease. Notes: Determination of stages one and two (with eGFR >59mL/min/1.73 m2) requires estimation of kidney damage for at least three months as defined by structural or functional abnormalities of the kidney, manifested by either:Pathological abnormalities or Markers of kidney damage (including abnormalities in the composition of the blood or urine or abnormalities in imaging tests). [facility] WITH [id number] 14:52:01 Test Item Value Reference Range Interpretation Comments WBC (test code = See_Comment [Automated message] 6690-2) The system [employer] generated this result transmitted ref erence range: 4.20 - 1 0.70 10*3/?L. The re ference range was not u sed to interpret this result as normal/abnor mal. RBC (test code = See_Comment [Automated message] 789-8) The system [employer] generated this result transmitted ref erence range: 4.26 - 5 .52 10*6/?L. The re ference range was not u sed to interpret this result as normal/abnor mal. HGB (test code = 14.4 g/dL 12.2-16.4 718-7) HCT (test code = 44.3 % 38.4-49.3 4544-3) MCV (test code = 89.3 fL 81.7-95.6 787-2) MCH (test code = 29.0 pg 26.1-32.7 785-6) MCHC (test code = 32.5 g/dL 31.2-35.0 786-4) RDW-SD (test code 46.5 fL 38.5-51.6 = 44683-6) RDW-CV (test code 14.4 % 12.1-15.4 = 788-0) PLT (test code = See_Comment [Automated message] 477-3) The system [employer] generated this result transmitted ref erence range: 150 - 32 8 10*3/?L. The re ference range was not u sed to interpret this result as normal/abnor mal. MPV (test code = 10.5 fL 9.8-13.0 75600-1) NRBC/100 WBC (test See_Comment [Automat ed message] code = 5815618620) The [employer] which generated this result transmitted ref erence range: 0.0 - 10 .0 /100 WBCs. The refer ence range was not u sed to interpret this result as normal/abnor mal. NRBC x10^3 (test <0.01 See_Comment [Automated message] code = 9404260400) The syste m which generated this result transmitted ref erence range: 10*3/?L. The reference range was not used to interpr et this result as normal/abnormal . GRAN MAT (NEUT) % 70.3 % (test code = 770-8) IMM GRAN % (test 0.70 % code = 9509326866) LYMPH % (test code 16.7 % = 736-9) MONO % (test code 9.4 % = 5905-5) EOS % (test code = 2.0 % 713-8) BASO % (test code 0.9 % = 706-2) GRAN MAT 6.09 10*3/uL 1.99-6.95 x10^3(ANC) (test code = 9438823785) IMM GRAN x10^3 0.06 10*3/uL 0.00-0.06 (test code = 1030272008) LYMPH x10^3 (test 1.45 10*3/uL 1.09-3.23 code = 731-0) MONO x10^3 (test 0.81 10*3/uL 0.36-1.02 code = 742-7) EOS x10^3 (test 0.17 10*3/uL 0.06-0.53 code = 711-2) BASO x10^3 (test 0.08 10*3/uL 0.01-0.09 code = 704-7) [facility]"
[2021-04-14] MEDS ORDERED: IPRATROPIUM BROM 0.5MG/2.5ML ONE (20:40)
[2021-04-14] MEDS ORDERED: ALBUTEROL 2.5 MG/3 ML NEB SOL ONE (20:40)
[2021-04-14 21:34] LABS: Protime INR 1.15
[2021-04-14 21:40] LABS: Absolute Lymphocytes (CBC) 1.5 K/uL (0.7-4.9); Hematocrit 46.6 % (39.6-49.0); Lymphocytes % 10.8 % (15.3-44.8); MPV 8.3 fL (7.6-11.3); RBC Red Blood Cell Count 5.13 M/uL (4.33-5.43)
--- NOTE | 2021-04-14 21:43 | RAD REPORT ---
EXAM DESCRIPTION: RAD - Chest Single View - 04/14/2021 9:21 pm CLINICAL HISTORY: COUGH Chest pain. COMPARISON: Chest Single View dated 07/26/2020; Chest Pa And Lat (2 Views) dated 02/25/2019; Chest Pa And Lat (2 Views) dated 05/28/2018; Chest Single View dated 05/27/2018 FINDINGS: Portable technique limits examination quality. Mild interstitial pulmonary edema suspected. The heart is mildly enlarged in size. Sternotomy wires a re noted. IMPRESSION: Mild CHF.
--- NOTE | 2021-04-14 21:46 | RAD REPORT ---
EXAM DESCRIPTION: CT - Thorax Wo Con CLINICAL HISTORY: Chest pain cough/SOB COMPARISON: Chest For Pe Angio dated 05/27/2018 FINDINGS: Mild diffuse COPD is present. Mild ground-glass opacities are present in both lungs greate st in the lung bases. Trace pleural fluid is seen on the left. No pneumothorax. Calcified subcarinal lymph node is present. No bulky lymphadenopathy is seen. Sternotomy wires are present. No gross upper abdominal finding. All CT scans are performed using dose optimization technique as appropriate and may include automated exposure control or mA/KV adjustment according to patient size. IMPRESSION: Mild CHF pattern is suspected.Interstitial prominence could also indicate viral infectio n/ bronchitis in the correct clinical setting.
[2021-04-14 22:05] LABS: Blood Morphology Comment NOT SEEN (NOT SEEN); Platelet Estimate ADEQ
--- NOTE | 2021-04-14 22:29 | EDPHYS ---
Physician Documentation [facility] Name: Jocelyn Ernst Age: 80 yrs Sex: Male : 1940 Arrival Date: 04/14/2021 Time: 19:52 Bed 14 Private MD: ED Physician Esme Dixon HPI: 04/14 20:51 This 80 yrs old Male presents to ER via Ambulatory with complaints of Shortness Of sp3 Breath. 20:51 1-year-old male history of hyperlipidemia, hypertension on Plavix presents with 2-week sp3 history of Covid positive outpatient testing, cough, shortness of breath progressively getting worse. Patient denies fever, chest pain, neck pain, headache abdominal pain, nausea, vomiting, diarrhea, rash, travel, any known sick contacts, any other ROS at this time. Patient states that symptoms are mild to moderate but came in due to them being progressively worse.. Historical: - Allergies: 20:08 Augmentin; jh5 20:08 diltasone; jh5 20:08 Lipitor; jh5 20:08 Plavix; jh5 20:08 Pravachol; jh5 20:08 Prednisone; jh5 20:08 Proscar; jh5 20:08 Spiriva with HandiHaler; 5 20:08 Toprol XL; 5 - PMHx: 20:08 Hyperlipidemia; Hypertension; 5 - Immunization history:: Adult Immunizations up to date. - Social history:: Smoking status: Patient denies any tobacco usage or history of. ROS: 20:53 Constitutional: Negative for fever, chills, and weight loss, Eyes: Negative for injury, sp3 pain, redness, and discharge, ENT: Negative for injury, pain, and discharge, Neck: Negative for injury, pain, and swelling, Abdomen/GI: Negative for abdominal pain, nausea, vomiting, diarrhea, and constipation, Back: Negative for injury and pain, MS/Extremity: Negative for injury and deformity, Skin: Negative for injury, rash, and discoloration, Neuro: Negative for headache, weakness, numbness, tingling, and seizure, Allergy/Immunology: Negative for hives, rash, and allergies, Endocrine: Negative for neck swelling, polydipsia, polyuria, polyphagia, and marked weight changes, Hematologic/Lymphatic: Negative for swollen nodes, abnormal bleeding, and unusual bruising. 20:53 All other systems are negative. Exam: 20:53 Constitutional: This is a well developed, well nourished patient who is awake, alert, sp3 and in no acute distress. Head/Face: Normocephalic, atraumatic. Eyes: Pupils equal round and reactive to light, extra-ocular motions intact. Lids and lashes normal. Conjunctiva and sclera are non-icteric and not injected. Cornea within normal limits. Periorbital areas with no swelling, redness, or edema. ENT: Nares patent. No nasal discharge, no septal abnormalities noted. External auditory canals are clear. Oropharynx with no redness, swelling, or masses, exudates, or evidence of obstruction, uvula midline. Mucous membranes moist. Neck: Trachea midline, no thyromegaly or masses palpated, and no cervical lymphadenopathy. Supple, full range of motion without nuchal rigidity, or vertebral point tenderness. No Meningismus. Chest/axilla: Normal chest wall appearance and motion. Nontender with no deformity. No lesions are appreciated. Cardiovascular: Regular rate and rhythm with a normal S1 and S2. No gallops, murmurs, or rubs. Normal PMI, no JVD. No pulse deficits. Abdomen/GI: Soft, non-tender, with normal bowel sounds. No distension or tympany. No guarding or rebound. No evidence of tenderness throughout. Back: No spinal tenderness. No costovertebral tenderness. Full range of motion. Skin: Warm, dry with normal turgor. Normal color with no rashes, no lesions, and no evidence of cellulitis. MS/ Extremity: Pulses equal, no cyanosis. Neurovascular intact. Full, normal range of motion. Neuro: Awake and alert, GCS 15, oriented to person, place, time, and situation. Cranial nerves II-XII grossly intact. Motor strength 5/5 in all extremities. Sensory grossly intact. Cerebellar exam normal. Normal gait. 20:53 Cardiovascular: Patient is in A. fib at 60 bpm. 20:53 ECG was reviewed by the Attending Physician. EKG demonstrates atrial fibrillation at 60 bpm with right bundle branch block without evidence of ischemia 20:56 Respiratory: Patient with mild expiratory wheezing and mild rhonchi.. sp3 Vital Signs: 20:02 BP 150 / 47; Pulse 68; Resp 18; Temp 99.3; Pulse Ox 96% ; Weight 95.25 kg; Height 6 ft. 5 1 in. (185.42 cm); Pain 9/10; 21:18 BP 121 / 71; Pulse 71; Resp 20; Pulse Ox 100% ; ll3 22:13 BP 119 / 72; Pulse 92; Resp 24; Pulse Ox 99% on 2 lpm NC; ll3 23:15 BP 141 / 69; Pulse 77; Resp 18; Pulse Ox 99% on 2 lpm NC; ll3 20:02 Body Mass Index 27.70 (95.25 kg, 185.42 cm) [facility] MDM: 20:17 Patient medically screened. sp3 20:55 Data reviewed: vital signs, nurses notes. ED course: Will assess for hyper inflammatory sp3 syndrome post Covid, center pneumonia, bronchitis, sepsis, ACS, CHF, viral syndrome. Not highly concerned for vascular compromise although his blood pressures were different from side to side in the upper extremities which we are repeating. CT scan of the chest has been ordered for his pulmonary assessment which will also address his vascular anatomy. Disposition based on work-up and patient progress. Also give nebulizer treatment DuoNeb x1 for his wheezing.. 22:27 ED course: In with mild wheezing but is improved subsequent to treatment. Will also sp3 start steroids and antibiotics. Steroids will help with both wheezing and hyperthymic scott syndrome if this is Covid related. Patient does have a leukocytosis with a bandemia therefore antibiotic should be added as well. We will treat with community-acquired pneumonia Levaquin due to penicillin allergy and steroids with nebs.. 04/14 20:29 Order name: Basic Metabolic Panel sp3 04/14 20:29 Order name: CBC with Diff; Complete Time: 22:20 sp3 04/14 20:29 Order name: LFT's sp3 04/14 20:29 Order name: Magnesium sp3 04/14 20:29 Order name: NT PRO-BNP sp3 04/14 20:29 Order name: PT-INR; Complete Time: 22:20 sp3 04/14 20:29 Order name: Troponin HS sp3 04/14 20:30 Order name: COVID-19 SARS RT PCR (Document "Date of Onset" if Symptomatic); Complete bb Time: 22:20 04/14 21:43 Order name: Manual Differential; Complete Time: 22:20 EDMS 04/14 22:25 Order name: Blood Culture Adult (2) la1 04/14 22:25 Order name: CRP; Complete Time: 01:03 la1 04/15 05:37 Order name: CBC with Automated Diff EDMS 04/15 05:50 Order name: Comprehensive Metabolic Panel EDMS 04/15 05:50 Order name: C-Reactive Protein EDMS 04/14 20:29 Order name: XRAY Chest (1 view); Complete Time: 22:20 sp3 04/14 20:29 Order name: EKG; Complete Time: 20:30 sp3 04/14 20:29 Order name: Cardiac monitoring; Complete Time: 21:08 sp3 04/14 20:29 Order name: EKG - Nurse/Tech; Complete Time: 21:08 sp3 04/14 20:29 Order name: IV Saline Lock; Complete Time: 21:08 sp3 04/14 20:29 Order name: Labs collected and sent; Complete Time: 21:08 sp3 04/14 20:29 Order name: O2 Per Protocol; Complete Time: 21:08 sp3 04/14 20:29 Order name: O2 Sat Monitoring; Complete Time: 21:08 sp3 04/14 20:30 Order name: CT Chest Wo Con; Complete Time: 22:20 sp3 04/15 06:37 Order name: Procalcitonin EDMS Administered Medications: 21:05 Drug: DuoNeb (albuterol 2.5 mg, ipratropium 0.5 mg) (3:1) (2.5 mg - 0.5 mg) 3 ml Route: ll3 Nebulizer; 22:12 Follow up: Response: No adverse reaction; Wheezing diminished ll3 22:52 Drug: SOLU-Medrol (methylPrednisoLONE) 125 mg Route: IVP; Site: right antecubital; ll3 23:55 Follow up: Response: No adverse reaction ll3 22:52 Drug: LevaQUIN (levofloxacin) 500 mg Volume: 100 ml; Route: IVPB; Infused Over: 60 ll3 mins; Site: right antecubital; 23:54 Follow up: Response: No adverse reaction; IV Status: Completed infusion; IV Intake: ll3 100ml Disposition Summary: 04/14/21 22:28 Hospitalization Ordered Hospitalization Status: Inpatient Admission sp3 Provider: Dwayne Martin sp3 Condition: Stable sp3 Problem: new sp3 Symptoms: have worsened sp3 Bed/Room Type: Standard sp3 Location: [facility] ER HOLD(04/14/21 22:36) cg Room Assignment: ERHOLD-(04/14/21 22:36) cg Diagnosis - Other viral pneumonia sp3 - Pneumonia, unspecified organism sp3 Forms: - Medication Reconciliation Form sp3 - SBAR form sp3 Signatures: Dispatcher [employer] EDMS Michelet Corrigan, AGUSTÍN-Lindsay CORNEJOP-Cla1 Annika Blanton RN RN cg Esme Dixon MD MD sp3 Elizabeth William RN RN jh5 Lauren Orantes RN RN 3 Corrections: (The following items were deleted from the chart) 22:30 22:27 ED course: In with mild wheezing but is improved subsequent to treatment. Will sp3 also start steroids and antibiotics. Steroids will help with both wheezing and hyperthymic scott syndrome if this is Covid related. Patient does have a leukocytosis with a bandemia therefore antibiotic should be added as well. We will treat with community-acquired pneumonia Rocephin Zithromax and steroids with nebs.. sp3 22:36 22:28 Telemetry/MedSurg (Inpatient) sp3 cg 22:36 22:28 sp3 cg
--- NOTE | 2021-04-14 22:29 | ER ---
Nurse's Notes [facility] [place], [place] [facility] Name: Jocelyn Ernst Age: 80 yrs Sex: Male : 1940 Arrival Date: 04/14/2021 Time: 19:52 Bed 14 Private MD: Diagnosis: Other viral pneumonia;Pneumonia, unspecified organism Presentation: 04/14 20:02 Chief complaint: Patient states: SOB, headache for couple weeks; pain all over and jh5 "sleepy as hell". Coronavirus screen: Vaccine status: Patient reports receiving the 2nd dose of the covid vaccine. Client denies travel out of the [place] in the last 14 days. Ebola Screen: Patient negative for fever greater than or equal to 101.5 degrees Fahrenheit, and additional compatible Ebola Virus Disease symptoms Patient denies exposure to infectious person. Patient denies travel to an Ebola-affected area in the 21 days before illness onset. Initial Sepsis Screen: Does the patient meet any 2 criteria? No. Patient's initial sepsis screen is negative. Does the patient have a suspected source of infection? No. Patient's initial sepsis screen is negative. Risk Assessment: Do you want to hurt yourself or someone else? Patient reports no desire to harm self or others. Onset of symptoms was April 02, 2021. 20:02 Method Of Arrival: Ambulatory [facility] 20:02 Acuity: PUSHPA 3 jh5 Triage Assessment: 20:08 General: Appears in no apparent distress. slender, well groomed, Behavior is calm, jh5 cooperative, appropriate for age. Pain: Complains of pain in all over. Respiratory: Reports shortness of breath at rest on exertion Onset: The symptoms/episode began/occurred gradually, the patient has moderate shortness of breath. Historical: - Allergies: 20:08 Augmentin; jh5 20:08 diltasone; jh5 20:08 Lipitor; jh5 20:08 Plavix; 5 20:08 Pravachol; 5 20:08 Prednisone; 5 20:08 Proscar; jh5 20:08 Spiriva with HandiHaler; jh5 20:08 Toprol XL; 5 - PMHx: 20:08 Hyperlipidemia; Hypertension; 5 - Immunization history:: Adult Immunizations up to date. - Social history:: Smoking status: Patient denies any tobacco usage or history of. Screenin:14 Abuse screen: Denies threats or abuse. Denies injuries from another. Nutritional jh5 screening: No deficits noted. Tuberculosis screening: No symptoms or risk factors identified. 21:10 Fall Risk IV access (20 points). Mental Status- Oriented to own ability (0 pts). Total ll3 Art Fall Scale indicates No Risk (0-24 pts). Assessment: 20:26 General: Appears in no apparent distress. uncomfortable, Behavior is calm, cooperative. ll3 Pain: Complains of pain in All over. Neuro: Level of Consciousness is awake, alert, obeys commands, Oriented to person, place, time, situation. Cardiovascular: Patient's skin is warm and dry. Respiratory: Airway is patent Respiratory effort is even, unlabored, Respiratory pattern is regular, symmetrical, Breath sounds with wheezes bilaterally. Derm: Skin is pink, warm \\T\\ dry. 20:26 Cardiovascular: Rhythm is sinus rhythm. ll3 21:13 GI: Abdomen is round distended, obese, Bowel sounds present X 4 quads. Abd is soft and ll3 non tender X 4 quads. Abdominal mass noted to LUQ, only noticeable when pt sits up in bed. 21:19 Reassessment: Patient appears in no apparent distress at this time. No changes from ll3 previously documented assessment. Patient and/or family updated on plan of care and expected duration. Pain level reassessed. Patient is alert, oriented x 3, equal unlabored respirations, skin warm/dry/pink. 22:13 Reassessment: Patient appears in no apparent distress at this time. No changes from ll3 previously documented assessment. Patient and/or family updated on plan of care and expected duration. Pain level reassessed. Patient is alert, oriented x 3, equal unlabored respirations, skin warm/dry/pink. 23:15 Reassessment: Patient appears in no apparent distress at this time. No changes from ll3 previously documented assessment. Patient and/or family updated on plan of care and expected duration. Pain level reassessed. Patient is alert, oriented x 3, equal unlabored respirations, skin warm/dry/pink. 04/15 08:29 Reassessment: See charting in [facility]. ic1 Vital Signs: 04/14 20:02 BP 150 / 47; Pulse 68; Resp 18; Temp 99.3; Pulse Ox 96% ; Weight 95.25 kg; Height 6 ft. 5 1 in. (185.42 cm); Pain 9/10; 21:18 BP 121 / 71; Pulse 71; Resp 20; Pulse Ox 100% ; ll3 22:13 BP 119 / 72; Pulse 92; Resp 24; Pulse Ox 99% on 2 lpm NC; ll3 23:15 BP 141 / 69; Pulse 77; Resp 18; Pulse Ox 99% on 2 lpm NC; ll3 20:02 Body Mass Index 27.70 (95.25 kg, 185.42 cm) [facility] ED Course: 19:52 Patient arrived in ED. 5 20:08 Triage completed. 5 20:08 Arm band placed on right wrist. 5 20:15 Esme Dixon MD is Attending Physician. 3 20:26 Lauren Orantes, PARRISH is Primary Nurse. 3 20:26 Patient has correct armband on for positive identification. Bed in low position. Call [facility] light in reach. Side rails up X 1. Adult w/ patient. 21:09 Initial lab(s) drawn, by al, sent to lab. EKG done, by ED staff, reviewed by Esme iDxon MD COVID swab sent to lab. Initial Neb Treatment Given as ordered Unable to instruct patient due to physical barriers, family/caregiver was instructed on procedure. Inserted saline lock: 22 gauge in right antecubital area, using aseptic technique. Blood collected. 21:21 XRAY Chest (1 view) In Process Unspecified. EDMS 21:39 CT Chest Wo Con In Process Unspecified. EDMS 22:28 Dwayne aMrtin MD is Hospitalizing Provider. sp3 23:15 Awaiting bed assignment. 3 23:15 No provider procedures requiring assistance completed. 3 02/04 00:00 Patient admitted, IV remains in place. No redness/swelling at site. 3 09:03 Primary Nurse role handed off by Lauren Orantes, PARRISH eb Administered Medications: 04/14 21:05 Drug: DuoNeb (albuterol 2.5 mg, ipratropium 0.5 mg) (3:1) (2.5 mg - 0.5 mg) 3 ml Route: 3 Nebulizer; 22:12 Follow up: Response: No adverse reaction; Wheezing diminished ll3 22:52 Drug: SOLU-Medrol (methylPrednisoLONE) 125 mg Route: IVP; Site: right antecubital; ll3 23:55 Follow up: Response: No adverse reaction ll3 22:52 Drug: LevaQUIN (levofloxacin) 500 mg Volume: 100 ml; Route: IVPB; Infused Over: 60 ll3 mins; Site: right antecubital; 23:54 Follow up: Response: No adverse reaction; IV Status: Completed infusion; IV Intake: ll3 100ml Intake: 23:54 IV: 100ml; Total: 100ml. ll3 Outcome: 22:28 Decision to Hospitalize by Provider. sp3 23:15 Admitted to ER Hold. Please see [facility] for further documentation. ll3 23:15 Condition: stable 23:15 Condition: See [facility] for further documentation. 04/15 14:01 Patient left the ED. ic1 Signatures: Dispatcher [employer] EDMS Emerald Brown Setul, MD MD sp3 Elizabeth William RN RN 5 Lauren Orantes RN RN ll3 Norma Santoro [facility] Rose Rascon RN RN ic1 Corrections: (The following items were deleted from the chart) 04/14 20:14 20:02 Pulse 68bpm; Resp 18bpm; Pulse Ox 96%; Temp 99.3F; 95.25 kg; Height 6 ft. 1 in.; 5 BMI: 27.7; Pain 9/10; jh5 22:13 20:26 Respiratory: Airway is patent Respiratory effort is even, unlabored, Respiratory ll3 pattern is regular, symmetrical, Breath sounds with crackles bilaterally. ll3 22:21 22:13 BP 119 / 72; Pulse 92bpm; Resp 24bpm; Pulse Ox 96% RA; ll3 ll3
[2021-04-14] MEDS ORDERED: METHYLPREDNISOLONE 125 MG INJ ONE (22:39)
[2021-04-14] MEDS ORDERED: Levofloxacin500mg IV 500 MG/100 ML BAG IV ONE (22:40)
--- NOTE | 2021-04-14 22:48 | P.HP ---
Certification for Inpatient Patient admitted to: Observation With expected LOS: <2 Midnights Patient will require the following post-hospital care: None Practitioner: I am a practitioner with admitting privileges, knowledge of patient current condition, hospital course, and medical plan of care. Services: Services provided to patient in accordance with Admission requirements found in Title 42 Section 412.3 of the Code of Federal Regulations Patient History Date of Service: 04/14/21 Primary Care Provider: Dr. Dias Reason for admission: COVID-19 pneumonia History of Present Illness: 80-year-old male with history of CAD, hypertension, hyperlipidemia presents to the emergency department for shortness of breath. Patient reports testing positive for Covid approximately 2 weeks ago with progressive shortness of breath, body aches, headache since then. Patient was wheezing upon arrival to the emergency department, further evaluation revealed labs significant for white blood cell count 13.6, Covid positive CT chest shows mild CHF pattern is suspected versus interstitial prominence could also indicate viral infe ction/bronchitis in the correct clinical setting. Believe this is more related to Covid/bacterial superimposed pneumonia given clinical picture. Patient's wheezing improved after nebulizer treatment as a 13k white count with left shift and mild bandemia, ED provider wishes to admit under observation for further evaluation. Allergies prednisone Allergy (Mild, Verified 05/27/18 18:49) Unknown amoxicillin [From Augmentin] Allergy (Verified 05/27/18 18:49) Unknown atorvastatin [From Lipitor] Allergy (Verified 05/27/18 18:49) Unknown clavulanic acid [From Augmentin] Allergy (Verified 05/27/18 18:49) Unknown clopidogrel [From Plavix] Allergy (Verified 05/27/18 18:49) Unknown metoprolol [From Toprol XL] Allergy (Verified 05/27/18 18:49) Unknown Home Medications: Aspirin [Adult Aspirin] 81 mg PO DAILY 05/28/18 Donepezil HCl 10 mg PO BID 05/28/18 Finasteride [Proscar*] 5 mg PO DAILY 05/28/18 Furosemide [Lasix] 40 mg PO BIDL #60 tab 05/28/18 Levothyroxine Sodium 88 mcg PO BEDTIME 05/28/18 Memantine HCl 5 mg PO BID 05/28/18 Omeprazole [Prilosec] 40 mg PO DAILY 05/28/18 Potassium Chloride 20 meq PO DAILY 05/28/18 Prasugrel HCl 2.5 mg PO BEDTIME 05/28/18 Ranitidine [Zantac*] 150 mg PO BEDTIME 05/28/18 Simvastatin 40 mg PO BEDTIME 05/28/18 Vit C/E/Zn/Coppr/Lutein/Zeaxan [Preservision Areds 2 Softgel] 1 cap PO BID 05/10 11/28 carvediloL [Carvedilol] 3.125 mg PO BID 05/28/18 - Past Medical/Surgical History Diabetic: No -: Chronic CHF -: CAD with prior CABG -: Hypertension -: Hyperlipidemia -: GERD -: Hypothyroidism -: BPH -: Dementia -: Carotid stenosis -: Cardiac stent -: CABG x2 vessels -: Carpal tunnel Psychosocial/ Personal History: Patient is - Family History Father -: Stroke Mother -: Lung disease - Social History Smoking Status: Former smoker Alcohol use: Yes CD- Drugs: No Caffeine use: Yes Place of Residence: Home Review of Systems 10-point ROS is otherwise unremarkable General: Weakness, Malaise Respiratory: Cough, Shortness of Breath, Sputum, Wheezing Physical Examination - Physical Exam General: Alert, In no apparent distress, Oriented x3 HEENT: Atraumatic, PERRLA, Mucous membr. moist/pink, EOMI, Sclerae nonicteric Neck: Supple, 2+ carotid pulse no bruit, No LAD, Without JVD or thyroid abnormality Respiratory: Diminished, Expiratory wheezes Cardiovascular: Regular rate/rhythm, Normal S1 S2 Capillary refill: <2 Seconds Gastrointestinal: Normal bowel sounds, No tenderness Musculoskeletal: No tenderness Integumentary: No rashes Neurological: Normal speech, Normal strength at 5/5 x4 extr, Normal tone, Normal affect Lymphatics: No axilla or inguinal lymphadenopathy - Studies Laboratory Data (last 24 hrs) 04/14/21 20:52: PT 13.2 H, INR 1.15 04/14/21 20:52: WBC 13.60 H, Hgb 15.2, Hct 46.6, Plt Count 200 Assessment and Plan - Plan Assessment: Dyspnea, leukocytosis secondary to COVID-19 pneumonia with possible superimposed bacterial pneumonia Chronic diastolic ingestive heart failure Hypertension Hyperlipidemia CAD history CABG Plan: Dyspnea, leukocytosis secondary to COVID-19 pneumonia with possible superimposed bacterial pneumonia: IV steroids, IV antibiotics with Levaquin, pulmonology consult in place. Daily saturations, as needed nebulizer treatment as patient has had expiratory wheezing. Procalcitonin with morning labs as well. CT with possible CHF versus infiltrate pattern more clinically patient appears to have pneumonia. Chronic diastolic ingestive heart failure: Patient without significant edema at this time obtain and continue medications, monitor on telemetry. Hypertension: Obtain and continue home medications. Hyperlipidemia:Obtain and continue home medications. CAD history of CABG:Obtain and continue home medications. DVT PPX: Lovenox Code status: Full Discharge Plan: Home Plan to discharge in: 24 Hours - Advance Directives Does patient have a Living Will: No Does patient have a Durable POA for Healthcare: Yes - Code Status/Comfort Care Code Status Assessed: Yes (Full code) Critical Care: No Time Spent Managing Pts Care (In Minutes): 55
[2021-04-14] MEDS ORDERED: IPRATROPIUM BROM 0.5MG/2.5ML NEB PRN (23:24)
[2021-04-14] MEDS ORDERED: BENZONATATE 100 MG CAP PO PRN (23:24)
[2021-04-14] MEDS ORDERED: ALBUTEROL 2.5 MG/3 ML NEB SOL NEB PRN (23:24)
[2021-04-14] MEDS ORDERED: ACETAMINOPHEN 500 MG TAB PO PRN (23:24)
[2021-04-15 00:27] VITALS: BMI 27.6
[2021-04-15 01:05] LABS: Albumin 2.4 g/dL (3.4-5.0); Bilirubin Direct 0.3 mg/dL (0-0.2); Bilirubin Total 0.8 mg/dL (0.2-1.0); Potassium 4.1 mmol/L (3.5-5.1); Protein, Total 6.8 g/dL (6.4-8.2); Troponin High Sensitivity 20.6 pg/mL (<58.9)
[2021-04-15 03:02] VITALS: O2SAT 96
[2021-04-15] MEDS ORDERED: ACETAMINOPHEN 500 MG TAB ONE (04:29)
[2021-04-15] MEDS ORDERED: METHYLPREDNISOLONE 40 MG INJ ONE ×2 (04:29→09:15)
[2021-04-15] MEDS: METHYLPREDNISOLONE 40 MG INJ IV SCH ×2 (04:30→08:46)
[2021-04-15 04:41] VITALS: TEMP 97.8
[2021-04-15 05:31] LABS: Absolute Lymphocytes (CBC) 0.4 K/uL (0.7-4.9); Lymphocytes % 3.1 % (15.3-44.8); MPV 8.5 fL (7.6-11.3); RBC Red Blood Cell Count 4.96 M/uL (4.33-5.43)
[2021-04-15 05:48] LABS: Albumin 2.3 g/dL (3.4-5.0); Bilirubin Total 0.7 mg/dL (0.2-1.0); C-Reactive Protein 96.4 mg/L (<3.00); Protein, Total 6.2 g/dL (6.4-8.2)
--- NOTE | 2021-04-15 06:51 | P.PN ---
Date of Service: 04/15/21
[2021-04-15 07:50] VITALS: BP 168/55
[2021-04-15] MEDS ORDERED: FUROSEMIDE 20 MG/ 2ML VIAL ONE (08:27)
[2021-04-15] MEDS ORDERED: ENOXAPARIN 40 MG/0.4 ML SQ ONE (08:28)
[2021-04-15] MEDS ORDERED: FUROSEMIDE 20 MG/ 2ML VIAL IV SCH (09:00)
[2021-04-15] MEDS ORDERED: ENOXAPARIN 40 MG/0.4 ML SQ SCH (09:00)
[2021-04-15] MEDS ORDERED: METHYLPREDNISOLONE 125 MG INJ ONE (09:12)
[2021-04-15] MEDS ORDERED: INFLUENZA VACCINE (for 6+ mo) 0.5 ML DOSE IMVAC ONE (10:00)
--- NOTE | 2021-04-15 12:45 | P.DS ---
Admission Date: 04/14/21 Discharge Date: 04/15/21 Primary Care Provider: Dr. Dias Disposition: ROUTINE DISCHARGE Discharge Condition: GOOD Reason for Admission: COVID-19 pneumonia Consultations: Pulmonology - Dr. Licona Procedures: CT chest (04/14): FINDINGS: Mild diffuse COPD is present. Mild ground-glass opacities are present in both lungs greatest in the lung bases. Trace pleural fluid is seen on the left. No pneumothorax. Calcified subcarinal lymph node is present. No bulky lymphadenopathy is seen. Sternotomy wires are present. No gross upper abdominal finding. All CT scans are performed using dose optimization technique as appropriate and may include automated exposure control or mA/KV adjustment according to patient size. IMPRESSION: Mild CHF pattern is suspected.Interstitial prominence could also indicate viral infection/ bronchitis in the correct clinical setting. Problem list Dyspnea secondary to COVID-19 pneumonia Chronic diastolic congestive heart failure Hypertension Hyperlipidemia CAD history CABG Brief History of Present Illness: 80-year-old male with history of CAD, hypertension, hyperlipidemia presents to the emergency department for shortness of breath. Patient reports testing positive for Covid approximately 2 weeks ago with progressive shortness of breath, body aches, headache since then. Patient was wheezing upon arrival to the emergency department, further evaluation revealed labs significant for white blood cell count 13.6, Covid positive CT chest shows mild CHF pattern is suspected versus interstitial prominence could also indicate viral infection/bronchitis in the correct clinical setting. Believe this is more related to Covid/bacterial superimposed pneumonia given clinical picture. Patient's wheezing improved after nebulizer treatment as a 13k white count with left shift and mild bandemia, ED provider wishes to admit under observation for further evaluation. Hospital Course: Found to have mild COVID-19 pneumonia with slight wheeze. Chest x-ray and CT confirmed this diagnosis. There is also a hint of CHF findings. Patient was empirically treated with steroids for COVID pneumonia, Levaquin for possible bacterial pneumonia, and received a dose of IV Lasix. He had si gnificant and quick improvement of his symptoms and reported feeling much better and ready to go home. Is breathing comfortably on room air with oxygen saturations in the mid to high 90s (95+). Pulmonology was consulted, recommended no further need for antibiotics. Discharged home to continue 1 week of dexamethasone. Follow-up with pulmonology in 1 week Follow-up with PCP in 1 to 2 weeks Vital Signs/Physical Exam: Temp Pulse Resp BP Pulse Ox 97.8 F 47 L 18 168/55 H 96 04/15/21 04:00 04/15/21 07:48 04/15/21 07:48 04/15/21 07:48 04/15/21 07:48 General: Alert, In no apparent distress, Oriented x3 HEENT: Mucous membr. moist/pink, Sclerae nonicteric Neck: Supple Respiratory: Diminished (At bases bilaterally), Other (Nonlabored respirations on room air) Cardiovascular: No edema, Regular rate/rhythm Gastrointestinal: Soft and benign, Non-distended, No tenderness Musculoskeletal: No tenderness Integumentary: No rashes, No significant lesion Neurological: Normal speech, Normal affect Laboratory Data at Discharge: WBC 14.10 K/uL (4.3-10.9) H 04/15/21 04:44 Hgb 14.7 g/dL (13.6-17.9) 04/15/21 04:44 Hct 45.0 % (39.6-49.0) 04/15/21 04:44 Plt Count 188 K/uL (152-406) 04/15/21 04:44 PT 13.2 SECONDS (9.5-12.5) H 04/14/21 20:52 INR 1.15 04/14/21 20:52 Sodium 138 mmol/L (136-145) 04/15/21 04:44 Potassium 4.0 mmol/L (3.5-5.1) 04/15/21 04:44 BUN 16 mg/dL (7-18) 04/15/21 04:44 Creatinine 0.94 mg/dL (0.55-1.3) 04/15/21 04:44 Glucose 262 mg/dL (74-106) H 04/15/21 04:44 Total Bilirubin 0.7 mg/dL (0.2-1.0) 04/15/21 04:44 AST 19 U/L (15-37) 04/15/21 04:44 ALT 36 U/L (12-78) 04/15/21 04:44 Alkaline Phosphatase 78 U/L (45-117) 04/15/21 04:44 Home Medications: Aspirin [Adult Aspirin] 81 mg PO DAILY 05/28/18 Donepezil HCl 10 mg PO BID 05/28/18 Finasteride [Proscar*] 5 mg PO DAILY 05/28/18 Furosemide [Lasix*] 40 mg PO BIDL #60 tab 05/28/18 Levothyroxine Sodium 88 mcg PO BEDTIME 05/28/18 Memantine HCl 10 mg PO BID 05/28/18 Omeprazole [Prilosec] 40 mg PO DAILY 05/28/18 Potassium Chloride 20 meq PO DAILY 05/28/18 Prasugrel HCl 2.5 mg PO BEDTIME 05/28/18 Ranitidine [Zantac*] 150 mg PO BEDTIME 05/28/18 Simvastatin 40 mg PO BEDTIME 05/28/18 Vit C/E/Zn/Coppr/Lutein/Zeaxan [Preservision Areds 2 Softgel] 1 cap PO BID 05/28/18 carvediloL [Carvedilol] 3.125 mg PO BID 05/28/18 dexAMETHasone [Dexamethasone] 2 mg PO BID 7 Days #14 tablet 04/15/21 New Medications: dexAMETHasone [Dexamethasone] 2 mg PO BID 7 Days #14 tablet Physician Discharge Instructions: Found to have mild COVID-19 pneumonia with slight wheeze. Chest x-ray and CT confirmed this diagnosis. There is also a hint of CHF findings. Patient was empirically treated with steroids for COVID pneumonia, Levaquin for possible bacterial pneumonia, and received a dose of IV Lasix. He had significant and quick improvement of his symptoms and reported feeling much better and ready to go home. Is breathing comfortably on room air with oxygen saturations in the mid to high 90s. Pulmonology was consulted, recommended no further need for antibiotics. Discharged home to continue 1 week of dexamethasone. Follow-up with pulmonology in 1 week Follow-up with PCP in 1 to 2 weeks Diet: AHA Activity: Ad zelalem Followup: NONE,NONE [Primary Care Provider] - Time spent managing pt's care (in minutes): 45
--- NOTE | 2021-04-15 14:40 | EKG ---
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
[2021-04-15 15:35] LABS: Magnesium 2.2
[2021-04-15] MEDS ORDERED: Levofloxacin500mg IV 500 MG/100 ML BAG IV SCH (23:00)
== END 2021-04-15 14:13 | disposition home or self-care (01) ==
LOC: ER 19:51 → ERHOLD 22:43
PROVIDERS: ADMIT Hospitalist; ATTEND Hospitalist
DX: U07.1 COVID-19 (principal); J12.82 Pneumonia due to coronavirus disease 2019; I11.0 Hypertensive heart disease with heart failure; I50.32 Chronic diastolic (congestive) heart failure; E78.5 Hyperlipidemia, unspecified; I25.10 Atherosclerotic heart disease of native coronary artery without angina pectoris; I65.29 Occlusion and stenosis of unspecified carotid artery; K21.9 Gastro-esophageal reflux disease without esophagitis; E03.9 Hypothyroidism, unspecified; N40.0 Benign prostatic hyperplasia without lower urinary tract symptoms; F03.90 Unspecified dementia, unspecified severity, without behavioral disturbance, psychotic disturbance, mood disturbance, and anxiety; Z95.1 Presence of aortocoronary bypass graft; Z95.5 Presence of coronary angioplasty implant and graft; Z79.82 Long term (current) use of aspirin; Z88.0 Allergy status to penicillin; Z88.8 Allergy status to other drugs, medicaments and biological substances; Z87.891 Personal history of nicotine dependence; Z82.3 Family history of stroke
CPT/HCPCS: 96365; 93005; 87040 ×2; 85025 ×2; 80048; 36415; 83735; 85610; 80076; 84484; 80053; 84145; 83880; 86140 ×2; 71250; 71045; 94010; 94640; 94760; 96375; 99285; U0003; J1940; J1650; J2930 ×2; J2920 ×2; G0378 ×3

== ENCOUNTER 2022-05-09 07:15 | Day surgery (SDC) | payer OTHER ==
[2022-05-09] MEDS ORDERED: Ringers Lactate 1,000 ML IV ONE (07:42)
[2022-05-09] MEDS ORDERED: LIDOCAINE 1% MPF 5 ML VIAL ONE (08:42)
[2022-05-09] MEDS ORDERED: propofoL 200 MG/20 ML VIAL IV ONE (08:42)
[2022-05-09 10:10] VITALS: TEMP 97.5
[2022-05-09 10:14] VITALS: BP 109/64; O2SAT 98
== END 2022-05-09 09:40 | disposition home or self-care (01) ==
LOC: OR 07:15
PROVIDERS: ATTEND Internal Medicine Gastroenterology
PROC: 0DB78ZX Excision of Stomach, Pylorus, Via Natural or Artificial Opening Endoscopic, Diagnostic (ICD-10-PCS; 2022-05-09)
PROC: 3E0G8GC Introduction of Other Therapeutic Substance into Upper GI, Via Natural or Artificial Opening Endoscopic (ICD-10-PCS; principal; 2022-05-09 09:15)
DX: K22.2 Esophageal obstruction (principal); K29.70 Gastritis, unspecified, without bleeding; K29.50 Unspecified chronic gastritis without bleeding
CPT/HCPCS: 88312; 88305; 43239; 43249; J2704; J2001; J7120; C1726

== ENCOUNTER 2023-04-28 12:30 | Inpatient (IN) | payer OTHER ==
[2023-04-28] MEDS ORDERED: CEFTRIAXONE 1000 MG/VIAL ONE (13:06)
[2023-04-28] MEDS ORDERED: ACETAMINOPHEN 500 MG TAB ONE (13:06)
[2023-04-28] MEDS ORDERED: NA CHLORIDE 0.9% 2,000 ML ONE (13:07)
[2023-04-28] MEDS ORDERED: Levofloxacin500mg IV 500 MG/100 ML BAG IV ONE (13:07)
[2023-04-28] MEDS ORDERED: FAMOTIDINE 20 MG/2 ML VIAL IV ONE (13:07)
[2023-04-28 13:20] LABS: Specific Gravity 1.016 (1.005-1.030); Urine Bacteria None Seen /HPF (<20); Urine Bilirubin NEGATIVE (Negative); Urine Blood Negative (Negative); Urine Clarity Turbid (Clear); Urine Color Light-Yellow (Yellow); Urine Glucose NEGATIVE (Negative); Urine Mucus Slight /HPF (None Seen); Urine Protein 1+ (Negative); Urine RBC <5 /HPF (None Seen); Urine Urobilinogen 1+ (Normal); Urine pH 7.5 (5.0-7.0)
[2023-04-28 13:34] LABS: SARS-CoV-2 Antigen Rapid Res Negative (Negative)
[2023-04-28 13:38] LABS: Absolute Lymphocytes (CBC) 0.4 K/uL (0.7-4.9); Hematocrit 39.2 % (39.6-49.0); Lymphocytes % 2.8 % (15.3-44.8); MCV 93.1 fL (80-100); MPV 8.8 fL (7.6-11.3); Platelets 166 thou/uL (152-406); RBC Red Blood Cell Count 4.21 M/uL (4.33-5.43)
[2023-04-28 13:48] LABS: Protime INR 1.16
--- NOTE | 2023-04-28 13:54 | RAD REPORT ---
EXAM DESCRIPTION: CT - Head Brain Wo Cont - 04/28/2023 1:45 pm CLINICAL HISTORY: MENTAL STATUS CHANGE COMPARISON: Head Brain Wo Cont dated 04/04/2023; Head Brain Wo Cont dated 07/26/2020 TECHNIQUE: All CT scans are performed using dose optimization technique as appropriate and may inclu de automated exposure control or mA/KV adjustment according to patient size. FINDINGS: No intracranial hemorrhage, hydrocephalus or extra-axial fluid collection.No areas of brai n edema or evidence of midline shift. Encephalomalacia in the right cerebellar hemisphere. Chronic sm all vessel ischemic changes. The paranasal sinuses and mastoids are clear. The calvarium is intact. IMPRESSION: No acute intracranial abnormality.
--- NOTE | 2023-04-28 14:02 | RAD REPORT ---
EXAM DESCRIPTION: CTStone Protocol - 04/28/2023 1:44 pm CLINICAL HISTORY: Flank pain;Fever COMPARISON: Abdomen Pelvis W Contrast dated 04/04/2023; Abdomen Pelvis W Contrast dated 8; CT ABD PELVIS W CONTRAST dated 01/29/2014 TECHNIQUE: CT of the abdomen and pelvis was performed. All CT scans are performed using dose optimization technique as appropriate and may include automated exposure control or mA/KV adjustment according to patient size. FINDINGS: Lower chest: New irregular airspace disease present in the right lower lobe. Coarsened int erstitium. Trace pleural effusions. Coronary artery calcifications and/or stents. Sternotomy. Liver: No acute abnormality or suspicious lesions. Biliary: No biliary ductal dilatation. Stomach: No significant focal abnormality. Duodenum: No significant focal abnormality. Pancreas: No significant abnormality. Spleen: No significant abnormality. Adrenal: No suspicious lesions. Kidney/ureter: Increased right-sided ureteral fullness. Nonobstructive bilateral nephrolithiasis. Too small to characterize and/or benign appearing renal lesions are noted. Retroperitoneum: No retroperitoneal adenopathy. Vascular: No aneurysm. Atherosclerosis . Bowel: Inflammatory changes along the distal descending/proximal sigmoid colon have improved but not resolved. Peritoneum: No ascites or free air. Small fat containing inguinal hernias . Bladder: Bladder wall thickening and stranding. Reproductive: No adnexal masses. Bones: No acute fracture. Minimal compression deformity at L4 is chronic. 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 Other: n/a IMPRESSION: 1. Improving inflammatory changes at the junction of descending and sigmoid colon consis tent with resolving diverticulitis. No perforation or abscess. No bowel obstruction. 2. New mild right lower lobe irregular airspace disease could reflect mild pneumonia or pneumonitis. 3. Bladder wall thickening present. . Increased mild right-sided ureteral fullness could be secondary to an ascending urinary tract infection.
[2023-04-28 14:03] LABS: Albumin 2.9 g/dL (3.4-5.0); Bilirubin Direct 0.2 mg/dL (0-0.2); Bilirubin Indirect, Calculated 0.3 mg/dL (0.2-0.8); Bilirubin Total 0.5 mg/dL (0.2-1.0); Magnesium 1.8 mg/dL (1.6-2.4); Potassium 4.2 mEq/L (3.5-5.1); Protein, Total 7.2 g/dL (6.4-8.2); Troponin High Sensitivity 21.2 pg/mL (<58.9)
--- NOTE | 2023-04-28 14:26 | RAD REPORT ---
EXAM DESCRIPTION: RAD - Chest Single View - 04/28/2023 2:18 pm CLINICAL HISTORY: COUGH COMPARISON: Abdomen 1 View (KUB) dated 04/05/2023; Chest Single View dated 04/04/2023; Chest Pa And La t (2 Views) dated 05/31/2022; Chest Pa And Lat (2 Views) dated 06/07/2021; Stone Protocol dated 04/28/19 FINDINGS: Lines: None. Lungs: Increased coarsening of the pulmonary interstitium. Pleural: No significant pleural effusions or pneumothorax. Cardiac: Similar cardiomegaly. Mediastinum: Within normal limits. Bones: No acute fractures. Sternotomy. Other: None IMPRESSION: Increase coarsening of the pulmonary interstitium could reflect infection or inflammatio n. No consolidative airspace disease or pulmonary edema.
[2023-04-28] MEDS ORDERED: IPRATROPIUM BROM 0.5MG/2.5ML ONE (14:56)
[2023-04-28] MEDS ORDERED: LEVALBUTEROL 1.25 MG/3 ML NEB ONE (14:57)
--- NOTE | 2023-04-28 15:15 | EDPHYS ---
Physician Documentation [facility] Name: Jocelyn Ernst Age: 82 yrs Sex: Male : 1940 Arrival Date: 04/28/2023 Time: 12:30 Bed 13 Private MD: IMELDA Physician Dustin Maurer HPI: 04/28 14:49 This 82 yrs old Male presents to ER via Wheelchair with complaints of Altered bertha Mental Status, Possible UTI. 14:49 The patient presents with confusion, decreased responsiveness, trouble concentrating. bertha Onset: The symptoms/episode began/occurred this morning, today. Possible causes: CVA or TIA, head injury, low blood sugar, sepsis. Associated signs and symptoms: Pertinent positives: confusion, dizziness, lightheadedness, nausea. Historical: - Allergies: 12:50 Augmentin; nj1 12:50 diltasone; nj1 12:50 Lipitor; nj1 12:50 Plavix; nj1 12:50 Pravachol; nj1 12:50 Prednisone; nj1 12:50 Proscar; nj1 12:50 Spiriva with HandiHaler; nj1 12:50 Toprol XL; nj1 - PMHx: 12:50 Hyperlipidemia; Hypertension; Alzheimer's disease; Gastric reflux; Depressive disorder; nj1 BPH; Migraine; - PSHx: 12:53 Coronary Angioplasty; Stented artery; Coronary artery bypass graft; Carotid nj1 endarterectomy; - Immunization history:: Client reports receiving the 2nd dose of the Covid vaccine. - Social history:: Smoking status: Patient denies any tobacco usage or history of. ROS: 14:51 Eyes: Negative for injury, pain, redness, and discharge, ENT: Negative for injury, bertha pain, and discharge, Neck: Negative for injury, pain, and swelling, Abdomen/GI: Negative for abdominal pain, nausea, vomiting, diarrhea, and constipation, Back: Negative for injury and pain, MS/Extremity: Negative for injury and deformity, Skin: Negative for injury, rash, and discoloration, Neuro: Negative for headache, weakness, numbness, tingling, and seizure, 14:51 Constitutional: Positive for body aches, chills, fatigue, fever, malaise, poor PO intake, 14:51 Cardiovascular: Positive for palpitations, 14:51 Respiratory: Positive for cough, shortness of breath, at rest. 14:51 Abdomen/GI: Positive for abdominal pain, of the left lower quadrant, 14:51 Neuro: Positive for altered mental status, weakness, Exam: 14:51 Head/Face: Normocephalic, atraumatic. Eyes: Pupils equal round and reactive to light, bertha extra-ocular motions intact. Lids and lashes normal. Conjunctiva and sclera are non-icteric and not injected. Cornea within normal limits. Periorbital areas with no swelling, redness, or edema. ENT: Nares patent. No nasal discharge, no septal abnormalities noted. Tympanic membranes are normal and external auditory canals are clear. Oropharynx with no redness, swelling, or masses, exudates, or evidence of obstruction, uvula midline. Mucous membranes moist. Neck: Trachea midline, no thyromegaly or masses palpated, and no cervical lymphadenopathy. Supple, full range of motion without nuchal rigidity, or vertebral point tenderness. No Meningismus. Chest/axilla: Normal chest wall appearance and motion. Nontender with no deformity. No lesions are appreciated. Abdomen/GI: Soft, non-tender, with normal bowel sounds. No distension or tympany. No guarding or rebound. No evidence of tenderness throughout. Back: No spinal tenderness. No costovertebral tenderness. Full range of motion. Male : Normal genitalia with no discharge or lesions. Skin: Warm, dry with normal turgor. Normal color with no rashes, no lesions, and no evidence of cellulitis. MS/ Extremity: Pulses equal, no cyanosis. Neurovascular intact. Full, normal range of motion. Psych: Awake, alert, with orientation to person, place and time. Behavior, mood, and affect are within normal limits. 14:51 Constitutional: The patient appears febrile, 14:51 ECG was reviewed by the Attending Physician. Vital Signs: 12:39 BP 198 / 69; Pulse 98; Resp 18; Temp 99.5(O); Pulse Ox 92% on R/A; Weight 88.45 kg; nj1 Height 6 ft. 1 in. ; 13:43 BP 179 / 67; Pulse 99; Resp 16; Pulse Ox 95% on R/A; ko1 15:43 BP 130 / 60; Pulse 68; Resp 16; Pulse Ox 95% on R/A; ko1 02 14:45 Temp 97.3(TE); nj1 04/28 12:39 Body Mass Index 25.73 (88.45 kg, 185.42 cm) nj1 MDM: 04/28 12:50 Patient medically screened. bertha 14:56 Differential diagnosis: Anemia asthma, Bronchitis CHF exacerbation, Chronic Obstructive bertha Pulmonary Disease obstructed airway, bronchitis, flu, URI, Myocardial Infarction pneumonia, pulmonary edema, Pulmonary Embolism reactive airway disease, Sepsis Unstable Angina. Antibiotic administration: Levaquin given, ROCEPHIN. Differential Diagnosis: CVA, electrolyte abnormality, hypoglycemia, intracranial bleed, pneumonia, seizure, sepsis, volume depletion. Immunization status: Pneumococcal vaccine: within last 5 years. Influenza vaccine: within last 5 years. Data reviewed: vital signs, nurses notes, lab test result(s), EKG, radiologic studies, CT scan, plain films. Consideration of Admission/Observation Patient was admitted/placed on observation. Escalation of care including admission/observation considered. I considered the following discharge prescriptions or medication management in the emergency department Medications were administered in the Emergency Department. See MAR. Independent interpretation of the following test(s) in the Emergency Department EKG: See my EKG interpretation above CT Scan: My interpretation is CT RESOLVING DIVERTICULITIS, PNA. Test considered but Not performed: MRI: NO MRI BRAIN. Historians other than the Patient: Spouse/Significant Other: AND FAMILY. Care significantly affected by the following chronic conditions: Hypertension, Obesity, HYPERLIPIDEMIA,GERD, DEPRESSION, ALZHEIMERS. Care significantly affected by the following Social Determinants of Health: Poor access to transportation. Counseling: I had a detailed discussion with the patient and/or guardian regarding the historical points, exam findings, and any diagnostic results supporting the discharge/admit diagnosis, lab results, radiology results, the need for further work-up and treatment in the hospital. 04/28 12:53 Order name: Basic Metabolic Panel; Complete Time: 14:19 bertha 04/28 12:53 Order name: CBC with Diff bertha 04/28 12:53 Order name: LFT's; Complete Time: 14:19 bertha 04/28 12:53 Order name: Magnesium; Complete Time: 14:19 bertha 04/28 12:53 Order name: NT PRO-BNP; Complete Time: 14:19 bertha 04/28 12:53 Order name: PT-INR; Complete Time: 13:[facility] 04/28 12:53 Order name: Troponin HS; Complete Time: 14:19 [facility] 04/28 12:53 Order name: Blood Culture Adult (2) [facility] 04/28 12:53 Order name: Lactate w/ 2H reflex if indic.; Complete Time: 14:19 [facility] 04/28 12:53 Order name: Lipase; Complete Time: 14:[facility] 04/28 12:53 Order name: Urinalysis w/ reflexes; Complete Time: 13:[facility] 04/28 12:53 Order name: Flu; Complete Time: 13:52 [facility] 04/28 12:53 Order name: Strep [facility] 04/28 12:53 Order name: SARS RAPID; Complete Time: 13:52 [facility] 04/28 13:35 Order name: Throat Culture EDN[facility] 04/28 15:41 Order name: CBC with Automated Diff EDMS 04/28 15:41 Order name: CBC with Automated Diff EDMS 04/28 15:41 Order name: CBC with Automated Diff EDMS 04/28 15:41 Order name: CBC with Automated Diff EDMS 04/28 15:41 Order name: Comprehensive Metabolic Panel [facility] 04/28 15:41 Order name: Comprehensive Metabolic Panel [facility] 04/28 15:41 Order name: Comprehensive Metabolic Panel [facility] 04/28 15:41 Order name: Comprehensive Metabolic Panel [facility] 04/28 15:41 Order name: Magnesium [facility] 04/28 15:41 Order name: Magnesium [facility] 04/28 17:48 Order name: CBC Smear Scan [facility] 04/29 03:36 Order name: Glucose, Ancillary Testing [facility] 04/28 12:53 Order name: XRAY Chest (1 view); Complete Time: 15:15 [facility] 04/28 12:53 Order name: CT Head Brain wo Cont; Complete Time: 14:19 [facility] 04/28 12:53 Order name: CT Stone Protocol; Complete Time: 14:19 [facility] 04/28 12:53 Order name: EKG; Complete Time: 12:53 [facility] 04/28 15:26 Order name: Social Service Consult [facility] 04/28 15:42 Order name: Patient Safety Orders [facility] 04/28 12:53 Order name: Cardiac monitoring; Complete Time: 13:34 [facility] 04/28 12:53 Order name: EKG - Nurse/Tech; Complete Time: 13:[facility] 04/28 12:53 Order name: IV Saline Lock; Complete Time: 13:[facility] 04/28 12:53 Order name: Labs collected and sent; Complete Time: 13:[facility] 04/28 12:53 Order name: O2 Per Protocol; Complete Time: : [facility] 04/28 12:53 Order name: O2 Sat Monitoring; Complete Time: : [facility] 04/28 13:01 Order name: IV Saline Lock - Large Bore; Complete Time: 13:33 bertha EC:51 Rate is 92 beats/min. Rhythm is regular. QRS [place] is Normal. MT interval is prolonged bertha at 256 msec. QRS interval is normal. QT interval is normal. No Q waves. T waves are Normal. No ST changes noted. Clinical impression: NSR w/ Non-specific ST/T Changes, 1st degree heart block, and No evidence of ischemia. Interpreted by me. Administered Medications: 13:33 Drug: levofloxacin IVPB 500 mg 100 ml IVPB once over 60 mins Volume: 100 ml; Route: ko1 IVPB; Infused Over: 60 mins; Site: left forearm; 13:33 Drug: Rocephin IV 1 grams IV at per protocol once; Given slow IV push per pharmacy ko1 instructions Route: IV; Rate: per protocol; Site: right forearm; 13:33 Drug: Famotidine IVP 20 mg IVP once; dilute with 10 mL 0.9% NaCl; give over 2 minutes ko1 Route: IVP; Site: left forearm; 15:46 Follow up: Response: No adverse reaction ko1 13:34 Drug: Acetaminophen PO 1000 mg PO once Route: PO; ko1 15:46 Follow up: Response: No adverse reaction ko1 13:34 Drug: NS 0.9% IV 1000 ml IV at 1 bolus Per protocol; 1000 mL bolus Route: IV; Rate: 1 ko1 bolus; Site: right forearm; 13:34 Drug: NS 0.9% IV 1000 ml IV at 1 bolus Per protocol; 1000 mL bolus Route: IV; Rate: 1 ko1 bolus; Site: left forearm; 14:59 Drug: Levalbuterol Inhalation 1.25 mg Inhalation once Route: Inhalation; ko1 15:45 Follow up: Response: No adverse reaction ko1 14:59 Drug: Ipratropium Inhalation Aerosol 0.5 mg Inhalation once Route: Inhalation; ko1 15:36 Drug: Phenazopyridine PO 200 mg PO once Route: PO; ko1 15:36 Drug: Flomax PO 0.4 mg PO once Route: PO; ko1 Disposition Summary: 04/28/23 15:15 Hospitalization Ordered Notes: Hospitalization Status: Inpatient Admission bertha Provider: Shelia Jacinto cha Condition: Fair bertha Problem: new bertha Symptoms: have improved bertha Bed/Room Type: Standard bertha Location: Telemetry/MedSurg (Inpatient)(04/29/23 10:47) eb Room Assignment: [facility](04/29/23 10:47) eb Diagnosis - Fever, unspecified bertha - Acute cystitis bertha - Diverticulitis of large intestine without perforation or abscess without bleeding bertha - Elevated white blood cell count bertha - Altered mental status, unspecified bertha - Sepsis, unspecified organism bertha Forms: - Medication Reconciliation Form bertha - SBAR form bertha - Leadership Thank You Letter bertha Signatures: Dispatcher [employer] Dustin Campuzano MD MD cha Baxter, Heather RN PARRISH Emerald Brown Kathy RN RN ko1 Kate Rodriguez RN RN nj1 Corrections: (The following items were deleted from the chart) 15:51 15:15 Telemetry/MedSurg (Inpatient) bertha hb 15:51 15:15 bertha hb 04/29 10:47 04/28 15:51 [facility] ER HOLD hb eb 04/29 10:47 04/28 15:51 ERHOLD- hb eb
--- NOTE | 2023-04-28 15:15 | ER ---
Nurse's Notes [facility] Name: Jocelyn Ernst Age: 82 yrs Sex: Male : 1940 Arrival Date: 04/28/2023 Time: 12:30 Bed 13 Private MD: Diagnosis: Fever, unspecified;Acute cystitis;Diverticulitis of large intestine without perforation or abscess without bleeding;Elevated white blood cell count;Altered mental status, unspecified;Sepsis, unspecified organism Presentation: 04/28 12:39 Chief complaint: Patient states: Altered mental status, generalized weakness, dysuria. nj1 Onset today. 12:39 Coronavirus screen: Vaccine status: Patient reports receiving the 2nd dose of the covid nj1 vaccine. Ebola Screen: Patient denies travel to an Ebola-affected area in the 21 days before illness onset. Initial Sepsis Screen: Does the patient meet any 2 criteria? Altered Mental Status. HR > 90 bpm. Yes Does the patient have a suspected source of infection? Yes: Dysuria/Frequency/Urgency/UTI If YES to both, name of provider notified: Dustin Maurer MD Risk Assessment: Do you want to hurt yourself or someone else? Patient reports no desire to harm self or others. Onset of symptoms was April 28, 2023. 12:39 Method Of Arrival: Wheelchair nj1 12:39 Acuity: PUSHPA 3 nj1 Triage Assessment: 13:00 General: Appears in no apparent distress. Behavior is calm, cooperative, appropriate ko1 for age. Historical: - Allergies: 12:50 Augmentin; nj1 12:50 diltasone; nj1 12:50 Lipitor; nj1 12:50 Plavix; nj1 12:50 Pravachol; nj1 12:50 Prednisone; nj1 12:50 Proscar; nj1 12:50 Spiriva with HandiHaler; nj1 12:50 Toprol XL; nj1 - PMHx: 12:50 Hyperlipidemia; Hypertension; Alzheimer's disease; Gastric reflux; Depressive disorder; nj1 BPH; Migraine; - PSHx: 12:53 Coronary Angioplasty; Stented artery; Coronary artery bypass graft; Carotid nj1 endarterectomy; - Immunization history:: Client reports receiving the 2nd dose of the Covid vaccine. - Social history:: Smoking status: Patient denies any tobacco usage or history of. Screenin:43 [facility] ED Fall Risk Assessment (Adult) History of falling in the last 3 months, ko1 including since admission Yes- single mechanical fall (1 pt) Confusion or Disorientation Yes (5 pts) Intoxicated or Sedated No (0 pts) Impaired Gait Yes (1 pt) Mobility Assist Device Used Yes (1 pt) Altered Elimination No (0 pt) Score/Fall Risk Level 3 or more points = High Risk Oriented to surroundings, Maintained a safe environment, Educated pt \\T\\ family on fall prevention, incl call for assistance when getting out of bed, Assessed \\T\\ reinforced patient's understanding of fall precautions, Provided non-skid footwear, Hourly rounding (assess needs \\T\\ fall precautionary measures) done, Used ambulatory aids as needed (educated on \\T\\ assisted with), Used gait belt as appropriate Implemented a Fall Risk Plan of Care, Apply high fall risk patient identification: yellow non skid footwear/ fall signage, Remained w/in arm's length of patient and in sight while toileting, Offered frequent toileting (1:1 observation), Remained with patient while ambulating, Utilized family, sitter, or virtual line department supervisor as indicated. Abuse screen: Denies threats or abuse. Denies injuries from another. Nutritional screening: No deficits noted. Tuberculosis screening: No symptoms or risk factors identified. Assessment: 13:46 Pain: Denies pain. Neuro: Level of Consciousness is awake, alert, obeys commands, ko1 confused. 04/29 11:00 Reassessment: Patient appears in no apparent distress at this time. Pt nj1 resting/sleeping. No needs identified at this time. 11:38 Reassessment: Unsuccessful attempt to call report at this time. Nurse Yancy cannot take nj1 report at this time "im in an emergency situation, i will call back". 12:35 Reassessment: Unsuccessful attempt to call report at this time. Nurses unavailable nj1 attending a critical patient. ED charge nurse notififed. 14:45 Reassessment: Patient appears in no apparent distress at this time. Patient and/or nj1 family updated on plan of care and expected duration. Pain level reassessed. Neuro: Level of Consciousness is awake, alert, obeys commands, Oriented to person, place, situation. 14:47 Reassessment: Unsuccessful attempt to call report, no answer. nj1 15:54 Reassessment: Unsuccessful attempt to call report at this time. No answer. Charge nurse nj1 notified. 15:56 Reassessment: Unsuccessful attempt to call [facility] [employer] [facility] as instructed by charge nj1 nurse, extension and cell phone number called, no answer. Vital Signs: 04/28 12:39 BP 198 / 69; Pulse 98; Resp 18; Temp 99.5(O); Pulse Ox 92% on R/A; Weight 88.45 kg; nj1 Height 6 ft. 1 in. ; 13:43 BP 179 / 67; Pulse 99; Resp 16; Pulse Ox 95% on R/A; ko1 15:43 BP 130 / 60; Pulse 68; Resp 16; Pulse Ox 95% on R/A; ko1 04/29 14:45 Temp 97.3(TE); nj1 04/28 12:39 Body Mass Index 25.73 (88.45 kg, 185.42 cm) [facility] ED Course: 04/28 12:35 Patient arrived in ED. im 12:43 Darlene Hayes RN is Primary Nurse. ko1 12:50 Dustin Maurer MD is Attending Physician. [facility] 12:50 Triage completed. nj1 12:54 Arm band placed on. nj1 13:20 Inserted saline lock: 20 gauge in left forearm, using aseptic technique. Blood ko1 collected. 13:20 Inserted saline lock: 22 gauge in right forearm, using aseptic technique. Blood ko1 collected. 13:33 SARS RAPID Sent. ko1 13:33 Flu Sent. ko1 13:34 Lipase Sent. ko1 13:34 Lactate w/ 2H reflex if indic. Sent. ko1 13:34 Blood Culture Adult (2) Sent. ko1 13:34 Basic Metabolic Panel Sent. ko1 13:34 CBC with Diff Sent. ko1 13:34 LFT's Sent. ko1 13:34 Magnesium Sent. ko1 13:34 NT PRO-BNP Sent. ko1 13:34 PT-INR Sent. ko1 13:34 Troponin HS Sent. ko1 13:43 Patient has correct armband on for positive identification. Allergy band placed. Fall ko1 risk band placed. Placed in gown. Bed in low position. Call light in reach. Side rails up X2. Adult w/ patient. Client placed on continuous cardiac and pulse oximetry monitoring. NIBP monitoring applied. cardiac monitor on. Door closed. Noise minimized. Lights dimmed. Warm blanket given. Pillow given. 13:44 CT Stone Protocol In Process Unspecified. EDMS 13:47 CT Head Brain wo Cont In Process Unspecified. EDMS 14:20 XRAY Chest (1 view) In Process Unspecified. EDMS 14:51 Throat Culture Sent. ko1 15:13 Shelia Jacinto MD is Hospitalizing Provider. [facility] 18:35 No provider procedures requiring assistance completed. Patient admitted, IV remains in ko1 place. 18:36 Provided Education on: na. ko1 Administered Medications: 13:33 Drug: levofloxacin IVPB 500 mg 100 ml IVPB once over 60 mins Volume: 100 ml; Route: ko1 IVPB; Infused Over: 60 mins; Site: left forearm; 13:33 Drug: Rocephin IV 1 grams IV at per protocol once; Given slow IV push per pharmacy ko1 instructions Route: IV; Rate: per protocol; Site: right forearm; 13:33 Drug: Famotidine IVP 20 mg IVP once; dilute with 10 mL 0.9% NaCl; give over 2 minutes ko1 Route: IVP; Site: left forearm; 15:46 Follow up: Response: No adverse reaction ko1 13:34 Drug: Acetaminophen PO 1000 mg PO once Route: PO; ko1 15:46 Follow up: Response: No adverse reaction ko1 13:34 Drug: NS 0.9% IV 1000 ml IV at 1 bolus Per protocol; 1000 mL bolus Route: IV; Rate: 1 ko1 bolus; Site: right forearm; 13:34 Drug: NS 0.9% IV 1000 ml IV at 1 bolus Per protocol; 1000 mL bolus Route: IV; Rate: 1 ko1 bolus; Site: left forearm; 14:59 Drug: Levalbuterol Inhalation 1.25 mg Inhalation once Route: Inhalation; ko1 15:45 Follow up: Response: No adverse reaction ko1 14:59 Drug: Ipratropium Inhalation Aerosol 0.5 mg Inhalation once Route: Inhalation; ko1 15:36 Drug: Phenazopyridine PO 200 mg PO once Route: PO; ko1 15:36 Drug: Flomax PO 0.4 mg PO once Route: PO; ko1 Medication: 18:35 VIS not applicable for this client. ko1 Outcome: 15:15 Decision to Hospitalize by Provider. bertha 18:36 Admitted to ER Hold. Please see [facility] for further documentation. ko1 18:36 Condition: stable 18:36 Instructed on the need for admit, 04/29 16:20 Patient left the ED. eb Signatures: Dispatcher [employer] Dustin Campuzano MD MD cha Botello, Elizabeth eb Oliver, Kathy RN RN ko1 Kate Rodriguez RN RN nj1 Serene Dai Corrections: (The following items were deleted from the chart) 04/28 13:26 12:39 Initial Sepsis Screen: Does the patient meet any 2 criteria? Altered Mental nj1 Status. HR > 90 bpm. Yes Does the patient have a suspected source of infection? Yes: Dysuria/Frequency/Urgency/UTI nj1
--- NOTE | 2023-04-28 15:23 | P.HP ---
Certification for Inpatient Patient admitted to: Inpatient With expected LOS: >2 Midnights Patient will require the following post-hospital care: Detention Practitioner: I am a practitioner with admitting privileges, knowledge of patient current condition, hospital course, and medical plan of care. Services: Services provided to patient in accordance with Admission requirements found in Title 42 Section 412.3 of the Code of Federal Regulations <Gianna Reese - Last Filed: 04/28/23 16:53> Patient History Date of Service: 04/28/23 Reason for admission: sepsis, pneumonia, diverticulitis/uti, ams, History of Present Illness: Mr. Ernst is a 82-year-old male who was recently in the hospital on April 04, 2023. He was admitted at that time for diverticulitis. For the day the patient has had chills, fever, cough, altered mental status, and return to the emergency room. Upon CT evaluation diverticulitis is clearing however the urine collecting system is a bit edematous and suggest an ascending urinary tract infection. CT also reveals new changes in the right lung base concerning for pneumonia. He will be admitted for gentle hydration, IV antibiotic therapy, serial assessments, and to await blood culture results. - Past Medical/Surgical History Diabetic: No -: Chronic CHF -: CAD with prior CABG -: Hypertension -: Hyperlipidemia -: GERD -: Hypothyroidism -: BPH -: Dementia -: Carotid stenosis -: Cardiac stent -: CABG x2 vessels -: Carpal tunnel Psychosocial/ Personal History: Patient is - Family History Family History: Reviewed- Non-Contributory - Family History Father -: Stroke Mother -: Lung disease - Social History Smoking Status: Unknown if ever smoked Alcohol use: Yes CD- Drugs: No Caffeine use: Yes <Gianna Reese - Last Filed: 04/28/23 16:53> Date of Service: 04/28/23 <Shelia Jacinto - Last Filed: 04/28/23 17:04> Allergies prednisone Allergy (Mild, Verified 05/05/22 11:26) Unknown amoxicillin [From Augmentin] Allergy (Verified 05/05/22 11:26) Unknown atorvastatin [From Lipitor] Allergy (Verified 05/05/22 11:26) Unknown clavulanic acid [From Augmentin] Allergy (Verified 05/05/22 11:26) Unknown clopidogrel [From Plavix] Allergy (Verified 05/05/22 11:26) Unknown metoprolol [From Toprol XL] Allergy (Verified 05/05/22 11:26) Unknown Home Medications: Aspirin [Adult Aspirin] 81 mg PO DAILY 05/28/18 Donepezil HCl 10 mg PO BID 05/28/18 Finasteride [Proscar*] 5 mg PO BEDTIME 05/28/18 Omeprazole [Prilosec] 40 mg PO DAILY 05/28/18 Potassium Chloride 20 meq PO BID 05/28/18 Simvastatin 40 mg PO BEDTIME 05/28/18 Vit C/E/Zn/Coppr/Lutein/Zeaxan [Preservision Areds 2 Softgel] 1 cap PO BID 05/28/18 Cyanocobalamin [Vitamin B-12*] 1,000 mcg PO BEDTIME 05/05/22 Famotidine [Pepcid*] 20 mg PO BEDTIME 05/05/22 Valsartan [Diovan*] 40 mg PO DAILY 05/05/22 Cholecalciferol (Vitamin D3) [Vitamin D3] 5,000 unit PO DAILY 04/04/23 Duloxetine HCl 30 mg PO DAILY 04/04/23 Megared Willard-3 800 mg PO DAILY 04/04/23 Memantine HCl 10 mg PO BID 04/04/23 Montelukast [Singulair*] 10 mg PO DAILY 04/04/23 Topiramate [Topamax*] 25 mg PO DAILY 04/04/23 Ciprofloxacin HCl 250 mg PO BID #14 tab 04/07/23 Codeine/APAP [Tylenol W/Codeine #3 tab] 1 tab PO Q6HP PRN #20 tab 04/07/23 Ensure High Protein 237 ml PO TID #90 can 04/07/23 Hydralazine [Apresoline*] 25 mg PO TID 30 Days #90 tab 04/07/23 Melatonin 5 mg PO BEDTIME PRN PRN #30 tab 04/07/23 Tamsulosin [Flomax] 0.8 mg PO BEDTIME #60 cap 04/07/23 metroNIDAZOLE [Flagyl] 250 mg PO Q8H #14 tab 04/07/23 Review of Systems 10-point ROS is otherwise unremarkable General: Fever, Chills, Weakness, Malaise Eyes: Unremarkable ENT: Unremarkable Respiratory: Cough, Shortness of Breath Cardiovascular: Palpitations Gastrointestinal: Abdominal Pain Genitourinary: Unremarkable Musculoskeletal: Unremarkable Integumentary: Unremarkable Neurological: Weakness, Confusion Lymphatics: Unremarkable <Gianna Reese - Last Filed: 04/28/23 16:53> Physical Examination - Physical Exam General: Alert, In no apparent distress, Oriented x3 HEENT: Atraumatic, Normocephalic Neck: Supple, 2+ carotid pulse no bruit Respiratory: Rhonchi/gurgles Cardiovascular: Regular rate/rhythm Capillary refill: <2 Seconds Gastrointestinal: Tenderness (mild, feels like he needs a BM) Musculoskeletal: No clubbing, No swelling Integumentary: No rashes, No significant lesion Lymphatics: No axilla or inguinal lymphadenopathy External genitalia: Deferred Rectal: Deferred - Studies Laboratory Data (last 24 hrs) 04/28/23 04/28/23 04/28/23 13:20 13:20 13:20 WBC 15.00 H Hgb 12.7 L Hct 39.2 L Plt Count 166 PT 12.7 H INR 1.16 Sodium 138 Potassium 4.2 BUN 15 Creatinine 0.87 Glucose 104 Magnesium 1.8 Total Bilirubin 0.5 AST 16 ALT 16 Alkaline Phosphatase 109 Lipase 23 Microbiology Data (last 24 hrs): 04/28/23 13:06 Nasopharnyx Influenza Type A Antigen Screen - Final 04/28/23 13:06 Nasopharnyx Influenza Type B Antigen Screen - Final 04/28/23 13:06 Throat Group A Streptococcus Rapid Screen - Final <Gianna Reese - Last Filed: 04/28/23 16:53> - Studies Laboratory Data (last 24 hrs) 04/28/23 04/28/23 04/28/23 13:20 13:20 13:20 WBC 15.00 H Hgb 12.7 L Hct 39.2 L Plt Count 166 PT 12.7 H INR 1.16 Sodium 138 Potassium 4.2 BUN 15 Creatinine 0.87 Glucose 104 Magnesium 1.8 Total Bilirubin 0.5 AST 16 ALT 16 Alkaline Phosphatase 109 Lipase 23 Microbiology Data (last 24 hrs): 04/28/23 13:06 Nasopharnyx Influenza Type A Antigen Screen - Final 04/28/23 13:06 Nasopharnyx Influenza Type B Antigen Screen - Final 04/28/23 13:06 Throat Group A Streptococcus Rapid Screen - Final <Shelia Jacinto - Last Filed: 04/28/23 17:04> Assessment and Plan - Plan Sepsis with leukocytosis: Blood cultures pending, IV abx, monitor vital signs. WBC 15 with left shift, Lactate in ED 1.4, electrolytes normal Dr. Dias treated Mr. Ernst with Decadron 4mg po and Zithromax 04/04/23 which could be part of WBC elevation Pneumonia: IV (recently finished z-max) will continue Rocephin, nebs, pt allergic to prednisone (recently finished course of Decadron), Incentive spirometer Resolving Diverticulitis with ascending urinary tract infection: Recently hospitalized with Diverticulitis, consult per Dr. Bledsoe - "sigmoid/descending colon diverticulitis 1. Clear liquid diet.2. Serial abdominal exams.3. Antibiotic coverage.4. I have explained risks, benefits, and alternatives of operative versus nonoperative management. We will attempt nonoperative management at this point of his acute sigmoid diverticulitis. Should he be successful in his nonoperative management, I have recommended he get a colonoscopy approximately 4-6 weeks after resolution of his symptoms with Dr. Ricardo and/or Raghu Jackson as he states he was looking at seeing Dr. Raghu Jackson. The patient displayed understanding of the above stated plan. Family members are present also and agreed to proceed as indicated. " Will continue Rocephin from ER for urine (and pneumonia) coverage. AMS: CT head today with acute finding Last admission last month CT head without acute findings, Carotid doppler performed -"IMPRESSION: Moderate plaque proximal left internal carotid artery resulting in approximately 50-60% stenosis" Brain MRI in 02/01 - no acute bed alarm, close to Nursing station, fall risk, neurological assessment q4h HFpEF: continue current therapy "COMMENTS: 1. NORMAL LEFT VENTRICULAR EJECTION FRACTION 55-60% WITH NORMAL WALL MOTION 2. MILD CONCENTRIC LEFT VENTRICULAR HYPERTROPHY 3. DIASTOLIC DYSFUNCTION 4. MILD MITRAL REGURGITATION TECHNOLOGIST: GARLAND GAO Dictated By: Franklin Wynn 04/05/23 1600" Plan to discharge in: 72 Hours - Advance Directives Does patient have a Living Will: No Does patient have a Durable POA for Healthcare: No <Gianna Reese - Last Filed: 04/28/23 16:53> - Plan Pt seen and examined. I agree with the note by the INFORMATION SYSTEMS PROFESSOR. Pt is an 82 yo female with past medical history of HLD, Htn, Alzheimers disease, GERD, Depression and migraine d/o who presents with AMS. Pt was confused this am and her family members brought her to the ER for evaluation. It was associated with fever, cough, nausea and dizziness. On admission, lab studies show WBC 15, Hgb 12.7, K 4.2, Cr 0.87, BNP [address] head is unremarkable. CT abd showed improving descending and sigmoid diverticulitis and pneumonia. CXR shows Increase coarsening of the pulmonary interstitium could reflect infection. At bedside, pt is in NAD. A/P: AMS 2/2 Cystitis: Will continue Levaquin. Follow up blood cx. Pneumonia: Will continue levaquin and follow up blood cx. Htn: statin Htn: continue home med. Will continue home meds for other chronic medical problems. DVT ppx: SCD Code: full <Shelia Jacinto - Last Filed: 04/28/23 17:04>
[2023-04-28] MEDS ORDERED: TAMSULOSIN 0.4 MG SR CAP ONE ×2 (15:33→20:32)
[2023-04-28] MEDS ORDERED: PHENAZOPYRIDINE 100MG TAB PO ONE (15:34)
[2023-04-28] MEDS ORDERED: ACETAMINOPHEN 650MG/RECT SUPP PR PRN (15:34)
[2023-04-28] MEDS ORDERED: DOCUSATE NA/SENNA CONC 1 TAB PO PRN (16:17)
[2023-04-28 17:48] LABS: Anisocytosis 1+; Blood Morphology Comment NOTED (NOT SEEN); Platelet Estimate ADEQ; Poikilocytosis 1+; White Blood Cell Scan OK (OK)
[2023-04-28] MEDS ORDERED: ATORVASTATIN 20 MG TAB ONE (20:33)
[2023-04-28] MEDS: FINASTERIDE 5 MG TAB PO SCH (20:52)
[2023-04-28] MEDS: TAMSULOSIN 0.4 MG SR CAP PO SCH (21:00)
[2023-04-28] MEDS: DONEPEZIL HCL 5 MG TAB PO SCH (21:00)
[2023-04-28] MEDS: ATORVASTATIN 20 MG TAB PO SCH (21:00)
[2023-04-28] MEDS: MEMANTINE HCL 10 MG TABLET PO SCH (21:00)
[2023-04-28] MEDS: ALBUTEROL 2.5 MG/3 ML NEB SOL NEB SCH (21:06)
[2023-04-28] MEDS: IPRATROPIUM BROM 0.5MG/2.5ML NEB SCH (21:06)
[2023-04-29 03:40] LABS: Absolute Lymphocytes (CBC) 1.2 K/uL (0.7-4.9); Hematocrit 32.7 % (39.6-49.0); Lymphocytes % 12.8 % (15.3-44.8); MCV 92.7 fL (80-100); MPV 8.7 fL (7.6-11.3); Platelets 130 thou/uL (152-406); RBC Red Blood Cell Count 3.53 M/uL (4.33-5.43)
[2023-04-29 04:01] LABS: Albumin 2.3 g/dL (3.4-5.0); Bilirubin Total 0.5 mg/dL (0.2-1.0); Potassium 3.6 mEq/L (3.5-5.1); Protein, Total 5.9 g/dL (6.4-8.2)
[2023-04-29] MEDS: POTASSIUM CL SA 10 MEQ TAB PO ONE (06:22)
[2023-04-29] MEDS ORDERED: POTASSIUM CL SA 10 MEQ TAB PO ONE (06:30)
[2023-04-29] MEDS ORDERED: ALBUTEROL 2.5 MG/3 ML NEB SOL ONE (08:13)
[2023-04-29] MEDS ORDERED: IPRATROPIUM BROM 0.5MG/2.5ML ONE (08:13)
[2023-04-29] MEDS ORDERED: ASPIRIN EC 81 MG TAB PO ONE (08:30)
[2023-04-29] MEDS ORDERED: CEFTRIAXONE 1000 MG/VIAL ONE (08:30)
[2023-04-29] MEDS ORDERED: VALSARTAN 80 MG TAB ONE (08:30)
[2023-04-29] MEDS ORDERED: ENOXAPARIN 40 MG/0.4 ML SQ ONE (08:31)
[2023-04-29] MEDS ORDERED: DULOXETINE 30 MG CAP PO ONE (08:31)
[2023-04-29] MEDS: DULOXETINE 30 MG CAP PO SCH (08:33)
[2023-04-29] MEDS: VALSARTAN 80 MG TAB PO SCH (08:33)
[2023-04-29] MEDS: ENOXAPARIN 40 MG/0.4 ML SQ SCH (08:33)
[2023-04-29] MEDS: ASPIRIN EC 81 MG TAB PO SCH (08:33)
[2023-04-29] MEDS: CEFTRIAXONE 1,000 MG in NA CHLORIDE 0.9% 50 ML IVPB SCH (08:33)
[2023-04-29] MEDS ORDERED: VALSARTAN 40 MG TAB PO SCH (09:00)
[2023-04-29] MEDS: OCUVITE (VIT A,C & E/LUTEIN/MINERAL) TABLET PO SCH (09:00)
[2023-04-29] MEDS ORDERED: Levofloxacin500mg IV 500 MG/100 ML BAG IV SCH (09:00)
--- NOTE | 2023-04-29 09:09 | P.PN ---
Subjective Date of Service: 04/29/23 Chief Complaint: sepsis, pneumonia, diverticulitis/uti, ams, Subjective: No C/O voiced, Improving <Gianna Reese - Last Filed: 04/29/23 09:05> Date of Service: 04/29/23 <Shelia Jacinto C - Last Filed: 04/29/23 11:58> Review of Systems 10-point ROS is otherwise unremarkable General: Unremarkable Eyes: Unremarkable ENT: Unremarkable Respiratory: Unremarkable Cardiovascular: Unremarkable Gastrointestinal: Unremarkable Genitourinary: Unremarkable Musculoskeletal: Unremarkable Integumentary: Unremarkable Neurological: As per HPI Lymphatics: Unremarkable <Gianna Reese - Last Filed: 04/29/23 09:05> Physical Examination - Vital Signs Temperature: 98.1 F Blood Pressure: 147/56 Pulse: 74 Respirations: 15 Pulse Ox (%): 98 - Physical Exam General: Alert, In no apparent distress, Other (more responsive this am) HEENT: Atraumatic, Normocephalic Neck: Supple, 2+ carotid pulse no bruit Respiratory: Normal air movement Cardiovascular: Regular rate/rhythm, Edema Capillary refill: <2 Seconds Gastrointestinal: Normal bowel sounds, Soft and benign Musculoskeletal: No clubbing Integumentary: No rashes, No breakdown Neurological: Other (gait not tested, moving all extremities, more responsive to commands, conversation today) External genitalia: Deferred Rectal: Deferred - Studies Laboratory Data (last 24 hrs) 04/28/23 04/28/23 04/28/23 13:20 13:20 13:20 WBC 15.00 H Hgb 12.7 L Hct 39.2 L Plt Count 166 PT 12.7 H INR 1.16 Sodium 138 Potassium 4.2 BUN 15 Creatinine 0.87 Glucose 104 Magnesium 1.8 Total Bilirubin 0.5 AST 16 ALT 16 Alkaline Phosphatase 109 Lipase 23 Microbiology Data (last 24 hrs): 04/28/23 13:06 Throat Group A Streptococcus Rapid Screen - Final 04/28/23 13:06 Nasopharnyx Influenza Type A Antigen Screen - Final 04/28/23 13:06 Nasopharnyx Influenza Type B Antigen Screen - Final <Gianna Reese - Last Filed: 04/29/23 09:05> - Studies Laboratory Data (last 24 hrs) 04/28/23 04/28/23 04/28/23 13:20 13:20 13:20 WBC 15.00 H Hgb 12.7 L Hct 39.2 L Plt Count 166 PT 12.7 H INR 1.16 Sodium 138 Potassium 4.2 BUN 15 Creatinine 0.87 Glucose 104 Magnesium 1.8 Total Bilirubin 0.5 AST 16 ALT 16 Alkaline Phosphatase 109 Lipase 23 Microbiology Data (last 24 hrs): 04/28/23 13:06 Throat Group A Streptococcus Rapid Screen - Final 04/28/23 13:06 Nasopharnyx Influenza Type A Antigen Screen - Final 04/28/23 13:06 Nasopharnyx Influenza Type B Antigen Screen - Final <Shelia Jacinto - Last Filed: 04/29/23 11:58> Assessment And Plan - Plan Sepsis with leukocytosis: Blood cultures pending, IV abx, monitor vital signs. WBC 15 with left shift, Lactate in ED 1.4, electrolytes normal Dr. Dias treated Mr. Ernst with Decadron 4mg po and Zithromax 04/04/23 which could be part of WBC elevation Pneumonia: IV (recently finished z-max) will continue Rocephin, nebs, pt allergic to prednisone (recently finished course of Decadron), Incentive spirometer Resolving Diverticulitis with ascending urinary tract infection: Recently hospitalized with Diverticulitis, consult per Dr. Bledsoe - "sigmoid/descending colon diverticulitis 1. Clear liquid diet.2. Serial abdominal exams.3. Antibiotic coverage.4. I have explained risks, benefits, and alternatives of operative versus nonoperative management. We will attempt nonoperative management at this point of his acute sigmoid diverticulitis. Should he be successful in his nonoperative management, I have recommended he get a colonoscopy approximately 4-6 weeks after resolution of his symptoms with Dr. Ricardo and/or Raghu Jackson as he states he was looking at seeing Dr. Raghu Jackson. The patient displayed understanding of the above stated plan. Family members are present also and agreed to proceed as indicated. " Will continue Rocephin from ER for urine (and pneumonia) coverage. Will have SW evaluate discharge needs/level AMS: CT head today with no acute finding Last admission last month CT head without acute findings, Carotid doppler performed -"IMPRESSION: Moderate plaque proximal left internal carotid artery resulting in approximately 50-60% stenosis" Brain MRI in 02/01 - no acute bed alarm, close to Nursing station, fall risk, neurological assessment q4h HFpEF: continue current therapy monitor VS, edema, SOB "COMMENTS: 1. NORMAL LEFT VENTRICULAR EJECTION FRACTION 55-60% WITH NORMAL WALL MOTION 2. MILD CONCENTRIC LEFT VENTRICULAR HYPERTROPHY 3. DIASTOLIC DYSFUNCTION 4. MILD MITRAL REGURGITATION TECHNOLOGIST: GARLAND GAO Dictated By: Franklin Wynn 04/05/23 1600" Plan to discharge in: 24 Hours <Gianna Reese - Last Filed: 04/29/23 09:05> - Plan Pt seen and examined. I agree with note by the MEDICARE CONTACT SPECIALIST. Continue rocephin for UTI and pna. Pt recently completed azithro. Follow up with urine cx. <Shelia Jacinto - Last Filed: 04/29/23 11:58>
[2023-04-30 01:24] VITALS: BMI 25.7
[2023-04-30] MEDS: ZOLPIDEM TARTRATE 10 MG TABLET PO ONE (02:07)
[2023-04-30 06:26] LABS: Absolute Lymphocytes (CBC) 1.3 K/uL (0.7-4.9); Hematocrit 33.1 % (39.6-49.0); Lymphocytes % 17.2 % (15.3-44.8); MCV 92.8 fL (80-100); MPV 8.9 fL (7.6-11.3); Platelets 142 thou/uL (152-406); RBC Red Blood Cell Count 3.56 M/uL (4.33-5.43)
[2023-04-30 06:39] LABS: Albumin 2.3 g/dL (3.4-5.0); Bilirubin Total 0.4 mg/dL (0.2-1.0); Potassium 3.8 mEq/L (3.5-5.1)
[2023-04-30] MEDS: POTASSIUM 25 MEQ EFFERV TAB PO ONE (09:38)
--- NOTE | 2023-04-30 09:45 | P.PN ---
Subjective Date of Service: 04/30/23 Chief Complaint: sepsis, pneumonia, diverticulitis/uti, ams, Alert and oriented, family at bedside no complaint of pain - Physical Exam General: Alert, In no apparent distress, Other (more responsive this am) HEENT: Atraumatic, Normocephalic Neck: Supple, 2+ carotid pulse no bruit Respiratory: Normal air movement Cardiovascular: Regular rate/rhythm, Edema Capillary refill: <2 Seconds Gastrointestinal: Normal bowel sounds, Soft and benign Musculoskeletal: No clubbing Integumentary: No rashes, No breakdown Neurological: Alert and oriented x 3 Review of Systems PER HPI Physical Examination - Vital Signs Temperature: 99.2 F Blood Pressure: 106/56 Pulse: 40 Respirations: 17 Pulse Ox (%): 96 - Studies Microbiology Data (last 24 hrs): 04/28/23 13:06 Throat Group A Streptococcus Rapid Screen - Final 04/28/23 13:06 Throat Culture & Sensitivity - Final NORMAL UPPER RESPIRATORY DANILO GROWN. Assessment And Plan - Plan Assessment plan Sepsis without shock secondary to pneumonia versus acute cystitis versus diverticulitis improved Acute hypoxic respiratory failure secondary to pneumonia improved Blood cultures pending, IV abx, monitor vital signs. WBC 15 with left shift, Lactate in ED 1.4, electrolytes normal Dr. Dias treated Mr. Ernst with Decadron 4mg po and Zithromax 04/04/23 which could be part of WBC elevation Nebs, ceftriaxone, Blood cultures no growth Group A strep, influenza A, B, negative Ambulate on room air sats 88% PT eval Recently hospitalized with Diverticulitis, consult per Dr. Bledsoe - "sigmoid/descending colon diverticulitis 1. Clear liquid diet.2. Serial abdominal exams.3. Antibiotic coverage.4. I have explained risks, benefits, and alternatives of operative versus nonoperative management. We will attempt nonoperative management at this point of his acute sigmoid diverticulitis. Should he be successful in his nonoperative management, I have recommended he get a colonoscopy approximately 4-6 weeks after resolution of his symptoms with Dr. Ricardo and/or Raghu Jackson as he states he was looking at seeing Dr. Raghu Jackson. The patient displayed understanding of the above stated plan. Family members are present also and agreed to proceed as indicated. " Will continue Rocephin from ER for urine (and pneumonia) coverage. Will have SW evaluate discharge needs/level Metabolic encephalopathy likely secondary from sepsis improved Acute on chronic heart failure with preserved ejection fraction Cardiology consult continue current therapy "COMMENTS: 1. NORMAL LEFT VENTRICULAR EJECTION FRACTION 55-60% WITH NORMAL WALL MOTION 2. MILD CONCENTRIC LEFT VENTRICULAR HYPERTROPHY 3. DIASTOLIC DYSFUNCTION 4. MILD MITRAL REGURGITATION TECHNOLOGIST: GARLAND GAO Dictated By: Franklin Wynn 04/05/23 1600" Telemetry Hypokalemia improved Trend electrolytes replace as needed Microcytic anemia stable 12.7 11.0, 10.9 Trend Multivitamin added Full code Diet cardiac DVT Lovenox 40 daily Disposition insists on returning home with HH and Therapy. Discharge Plan: Home Critical Care: No Time Spent Managing PTS Care (In Minutes): 35
--- NOTE | 2023-04-30 11:00 | EKG ---
Test Date: 2023-04-28 Test Time: 13:28:39 Insurance Account Representative: [place] MEASUREMENT RESULTS: Intervals: Rate: 92 NV: 256 QRSD: 144 QT: 388 QTc: 479 [place]: P: 91 NV: 256 QRS: -67 T: 77 INTERPRETIVE STATEMENTS: Sinus rhythm with 1st degree AV block Left axis deviation Right bundle branch block Left ventricular hypertrophy with repolarization abnormality Inferior infarct, age undetermined Abnormal ECG Compared to ECG 04/05/2023 09:41:53 Left-axis deviation now present Early repolarization now present Left anterior fascicular block no longer present Bifascicular block no longer present Myocardial infarct finding still present Electronically Signed On 04-30-23 10:57:18 FALL INTERN by Roosevelt Truong
--- NOTE | 2023-05-01 03:21 | CON ---
Date of Consultation: 04/30/2023 Reason For Consultation: History of coronary artery disease. History Of Present Illness: 82-year-old male presented to the hospital with fever, cough, altered me ntal status, and chills. CT scan revealed diverticulitis. Also found to have significant urinary tr act infection. Denies having any chest pain, generally is weak. Past Medical History: CHF, coronary artery disease, hypertension, dyslipidemia, acid reflux, enlarge d prostate. Medication: Refer to conciliation sheet for the list. Allergies: PREDNISONE, AMOXICILLIN, ATORVASTATIN, AND AUGMENTIN. Past Surgical History: CABG. Family History: No premature coronary artery disease or cancer. Social History: Does not smoke or drink. Does not use any drugs. Review of Systems: All systems reviewed were negative except mentioned in HPI. Physical Examination: Vital signs: Reviewed. Head and Neck: Pupils are equal, reactive to light. Intact eye movements. No JVD. No cervical lym phadenopathy. Neck: Supple. Thyroid is not enlarged. Lungs: Clear to auscultation bilaterally. No rhonchi, wheezing, or crackles. No accessory muscle u se. Heart: Regular rate and rhythm. No extra sounds. Abdomen: Soft, nontender. Bowel sounds positive. No organomegaly. No masses or hernia. No hernia or rebound. Extremities: No clubbing, cyanosis. Intact pulses. Skin: No rash. Neurologic: Alert, awake, oriented x3. No acute focal deficits appreciated. Investigations: Troponins negative. BUN is 14, creatinine 0.65, and hemoglobin is 10.9. Assessment And Recommendations: 1.Coronary artery disease. No chest pain. Troponin is negative. We will monitor on outpatient bas is. 2.Chronic heart failure. It is diastolic. Appears to be euvolemic at the present time. Maintain a good control of his blood pressure and low-salt diet. We will follow the patient on outpatient basi s. 3.Dyslipidemia. Continue statin. Cardiology will sign off and will be available for any further qu estions. SR/MODL Voice ID: [id number] Report ID: [id number]
[2023-05-01 06:13] VITALS: O2SAT 97
[2023-05-01 07:08] LABS: Absolute Lymphocytes (CBC) 1.4 K/uL (0.7-4.9); Hematocrit 34.6 % (39.6-49.0); Lymphocytes % 15.7 % (15.3-44.8); MCV 92.5 fL (80-100); MPV 8.6 fL (7.6-11.3); Platelets 155 thou/uL (152-406); RBC Red Blood Cell Count 3.73 M/uL (4.33-5.43)
[2023-05-01 07:26] LABS: Albumin 2.3 g/dL (3.4-5.0); Bilirubin Total 0.6 mg/dL (0.2-1.0); Protein, Total 6.3 g/dL (6.4-8.2)
--- NOTE | 2023-05-01 13:38 | P.DS ---
Admission Date: 04/28/23 Discharge Date: 05/01/23 Disposition: [place] [facility] Discharge Condition: FAIR Reason for Admission: sepsis, pneumonia, diverticulitis/uti, ams, Brief History of Present Illness: Mr. Ernst is a 82-year-old male who was recently in the hospital on April 04, 2023. He was admitted at that time for diverticulitis. For the day the patient has had chills, fever, cough, altered mental status, and return to the emergency room. Upon CT evaluation diverticulitis is clearing however the urine collecting system is a bit edematous and suggest an ascending urinary tract infection. CT also reveals new changes in the right lung base concerning for pneumonia. He will be admitted for gentle hydration, IV antibiotic therapy, serial assessments, and to await blood culture results. - Physical Exam General: Alert, In no apparent distress, Oriented x3 HEENT: Atraumatic, Normocephalic Neck: Supple, 2+ carotid pulse no bruit Respiratory: Rhonchi/gurgles Cardiovascular: Regular rate/rhythm Capillary refill: <2 Seconds Gastrointestinal: Tenderness (mild, feels like he needs a BM) Musculoskeletal: No clubbing, No swelling Integumentary: No rashes, No significant lesion Hospital Course: 82 year-old male patient presented with fever chills. Was noted to have UTI, pneumonia. Condition improved with IV antibiotics, Lasix, oxygen. Patient tolerating diet, stable for discharge to home with follow-up appointment with primary care physician, cardiology PROBLEM: Acute cystitis Pneumonia Heart failure Confusion, resolved with IV antibiotics added prescription lasix 40 mg 1 by mouth daily New prescription for prednisone, p.o. antibiotic, nebulizers Follow-up with elementary vocal music teacher in 1 to 2 weeks Take medications as previously prescribed CT of the head negative for acute abnormality Continue home medicines as previously prescribed GOAL: Clear understanding of disease process INSTRUCTIONS: Physician Discharge Instructions: -Follow-up with PCP in 1 to 2 weeks -Please call Dr. Beltrán at [phone] if any questions regarding hospital stay -Please call nursing station at [phone] if any nursing or medication questions -Return to the emergency room if symptoms worsen Diet: ADA, low sodium Activity: Fall precautions DME [employer] has not yet delivered the portable O2. Left a message for Souleymane Barnes, [facility] and their preference is to resume with this agency upon discharge. Vital Signs/Physical Exam: Temp Pulse Resp BP Pulse Ox 99.1 F 85 20 113/62 98 05/01/23 08:00 05/01/23 08:00 05/01/23 08:00 05/01/23 08:00 05/01/23 08:00 Laboratory Data at Discharge: WBC 8.60 thou/uL (4.3-10.9) 05/01/23 06:36 Hgb 11.3 g/dL (13.6-17.9) L 05/01/23 06:36 Hct 34.6 % (39.6-49.0) L 05/01/23 06:36 Plt Count 155 thou/uL (152-406) 05/01/23 06:36 PT 12.7 SECONDS (9.5-12.5) H 04/28/23 13:20 INR 1.16 04/28/23 13:20 Sodium 137 mEq/L (136-145) 05/01/23 06:36 Potassium 4.0 mEq/L (3.5-5.1) 05/01/23 06:36 BUN 13 mg/dL (7-18) 05/01/23 06:36 Creatinine 0.81 mg/dL (0.70-1.30) 05/01/23 06:36 Glucose 95 mg/dL (74-106) 05/01/23 06:36 Magnesium 2.0 mg/dL (1.6-2.4) 05/01/23 06:36 Total Bilirubin 0.6 mg/dL (0.2-1.0) 05/01/23 06:36 AST 20 U/L (15-37) 05/01/23 06:36 ALT 14 U/L (16-61) L 05/01/23 06:36 Alkaline Phosphatase 87 U/L (45-117) 05/01/23 06:36 Lipase 23 U/L (13-75) 04/28/23 13:20 Home Medications: Aspirin [Adult Aspirin] 81 mg PO DAILY 05/28/18 Donepezil HCl 10 mg PO BID 05/28/18 Finasteride [Proscar*] 5 mg PO BEDTIME 05/28/18 Omeprazole [Prilosec] 40 mg PO DAILY 05/28/18 Potassium Chloride 20 meq PO BID 05/28/18 Simvastatin 40 mg PO BEDTIME 05/28/18 Cyanocobalamin [Vitamin B-12*] 1,000 mcg PO BEDTIME 05/05/22 Valsartan [Diovan*] 40 mg PO DAILY 05/05/22 Cholecalciferol (Vitamin D3) [Vitamin D3] 5,000 unit PO DAILY 04/04/23 Megared [place]-3 800 mg PO DAILY 04/04/23 Memantine HCl 10 mg PO BID 04/04/23 Montelukast [Singulair*] 10 mg PO DAILY 04/04/23 Topiramate [Topamax*] 25 mg PO DAILY 04/04/23 Codeine/APAP [Tylenol #3*] 1 tab PO Q6HP PRN #20 tab 04/07/23 Hydralazine [Apresoline*] 25 mg PO TID 30 Days #90 tab 04/07/23 Tamsulosin [Flomax*] 0.8 mg PO BEDTIME #60 cap 04/07/23 Acidophilus/Bulgaricus [Lactinex Packet] 1 each PO AC #90 tab 05/01/23 Albuterol Neb [Proventil 0.083% Neb Soln] 2.5 mg IH Q6H PRN #60 amp 05/01/23 Atorvastatin Calcium [Lipitor*] 20 mg PO BEDTIME tab 05/01/23 Budesonide [Pulmicort] 0.5 mg NEB Q12H #60 amp 05/01/23 Cefdinir [Cefdinir*] 300 mg PO BID #10 cap 05/01/23 Finasteride [Proscar*] 5 mg PO BEDTIME tab 05/01/23 Furosemide [Lasix] 40 mg PO DAILY 30 Days #30 mg 05/01/23 Ipratropium Neb [Atrovent*] 0.5 mg NEB Q6HP PRN #60 amp 05/01/23 Nebulizer 1 each MC DAILY #1 ea 05/01/23 Nebulizer Accessories [Aeroneb Go] 1 each MC DAILY #1 ea 05/01/23 Tamsulosin [Flomax*] 0.4 mg PO BEDTIME cap 05/01/23 New Medications: Nebulizer Accessories [Aeroneb Go] 1 each MC DAILY #1 ea Ipratropium Neb [Atrovent*] 0.5 mg NEB Q6HP PRN #60 amp PRN Reason: bronchitis Cefdinir [Cefdinir*] 300 mg PO BID #10 cap Acidophilus/Bulgaricus [Lactinex Packet] 1 each PO AC #90 tab Furosemide [Lasix] 40 mg PO DAILY 30 Days #30 mg Nebulizer 1 each MC DAILY #1 ea Albuterol Neb [Proventil 0.083% Neb Soln] 2.5 mg IH Q6H PRN #60 amp PRN Reason: COUGH/CONGESTION/DYSPNEA Budesonide [Pulmicort] 0.5 mg NEB Q12H #60 amp Physician Discharge Instructions: 82 year-old male patient presented with fever chills. Was noted to have UTI, pneumonia. Condition improved with IV antibiotics, Lasix, oxygen. Patient tolerating diet, stable for discharge to home with follow-up appointment with primary care physician, cardiology PROBLEM: Acute cystitis Pneumonia Heart failure Confusion, resolved with IV antibiotics Follow-up with elementary vocal music teacher in 1 to 2 weeks Take medications as previously prescribed CT of the head negative for acute abnormality Continue home medicines as previously prescribed GOAL: Clear understanding of disease process INSTRUCTIONS: Physician Discharge Instructions: -Follow-up with PCP in 1 to 2 weeks -Please call Dr. Beltrán at [phone] if any questions regarding hospital stay -Please call nursing station at [phone] if any nursing or medication questions -Return to the emergency room if symptoms worsen DME [employer] has not yet delivered the portable O2. Left a message for Souleymane Barnes [facility] and their preference is to resume with this agency upon discharge. Diet: AHA Activity: Fall precautions Followup: Franklin Wynn MD [ACTIVE - CAN ADMIT] - 1-2 Weeks Anabella Felix NP [Primary Care Provider] - 1 Week Time spent managing pt's care (in minutes): 55
[2023-05-01 15:06] VITALS: BP 110/57; TEMP 98.2
== END 2023-05-01 16:36 | disposition home health service (06) | DRG 871 ==
LOC: ER 12:30 → ERHOLD 15:34 → 4TH 04-29 16:05
PROVIDERS: ADMIT Hospitalist; ATTEND Hospitalist
DX: A41.9 Sepsis, unspecified organism (principal); G93.41 Metabolic encephalopathy; J18.9 Pneumonia, unspecified organism; J96.01 Acute respiratory failure with hypoxia; I50.33 Acute on chronic diastolic (congestive) heart failure; N30.00 Acute cystitis without hematuria; K57.32 Diverticulitis of large intestine without perforation or abscess without bleeding; I11.0 Hypertensive heart disease with heart failure; E78.5 Hyperlipidemia, unspecified; D50.9 Iron deficiency anemia, unspecified; E87.6 Hypokalemia; K21.9 Gastro-esophageal reflux disease without esophagitis; N40.0 Benign prostatic hyperplasia without lower urinary tract symptoms; G30.9 Alzheimer's disease, unspecified; F02.80 Dementia in other diseases classified elsewhere, unspecified severity, without behavioral disturbance, psychotic disturbance, mood disturbance, and anxiety; I25.10 Atherosclerotic heart disease of native coronary artery without angina pectoris; Z88.1 Allergy status to other antibiotic agents; Z88.8 Allergy status to other drugs, medicaments and biological substances; Z95.5 Presence of coronary angioplasty implant and graft; Z95.1 Presence of aortocoronary bypass graft; Z11.52 Encounter for screening for COVID-19
CPT/HCPCS: 36415; 70450; 71045; 74176; 76377; 80048; 80053; 80076; 81001; 82947; 83605; 83690; 83735; 83880; 84484; 85025; 85610; 87040; 87070; 87081; 87804; 87811; 93005; 94640; 94760; 97116; 97161; 97530; 99285; J0696; J1650; J7030; J7613; J7614; J7644

== ENCOUNTER 2023-06-24 10:02 | Emergency (ER) | payer OTHER ==
[2023-06-24 11:20] LABS: Absolute Basophils 0.1 K/uL (0-0.5); Absolute Eosinophils 0.1 K/uL (0-0.5); Absolute Lymphocytes (CBC) 1.3 K/uL (0.7-4.9); Absolute Monocytes 0.8 K/uL (0.1-1.3); Basophils % 0.7 % (0-1.3); Eosinophils % 0.7 % (0-4.4); Hematocrit 38.3 % (39.6-49.0); Lymphocytes % 14.1 % (15.3-44.8); MCH 28.3 pg (27.0-35.0); MCHC 31.3 g/dL (32.0-36.0); MCV 90.5 fL (80-100); MPV 8.8 fL (7.6-11.3); Monocytes % 8.4 % (3.3-12.3); Neutrophils % 76.1 % (41.7-73.7); Platelets 170 thou/uL (152-406); RBC Red Blood Cell Count 4.24 M/uL (4.33-5.43); Red Cell Distribution Width 18.4 % (12.1-15.2)
[2023-06-24 11:30] LABS: PT Prothrombin Time 14.1 SECONDS (9.5-12.5); PTT, Activated Partial Thromb 33.6 SECONDS (24.3-36.9); Protime INR 1.29
[2023-06-24 11:38] LABS: Albumin 2.7 g/dL (3.4-5.0); Albumin/Globulin Ratio 0.7 (1.1-1.8); Anion Gap 7.7 mEq/L (5.0-15.0); Bilirubin Total 0.6 mg/dL (0.2-1.0); Globulin 4.1 g/dL (2.3-3.5); Potassium 3.7 mEq/L (3.5-5.1); Protein, Total 6.8 g/dL (6.4-8.2)
[2023-06-24 12:22] LABS: Specific Gravity 1.023 (1.005-1.030); Sqamous Epithelial None Seen /HPF (None Seen); Urine Bacteria None Seen /HPF (<20); Urine Bilirubin NEGATIVE (Negative); Urine Blood Negative (Negative); Urine Clarity Clear (Clear); Urine Color Yellow (Yellow); Urine Culture Reflex Order NOT NEEDED; Urine Glucose NEGATIVE (Negative); Urine Ketones NEGATIVE (Negative); Urine Microscopic Reflex YN ORDER UMIC; Urine Mucus Slight /HPF (None Seen); Urine Nitrite NEGATIVE (Negative); Urine Protein 1+ (Negative); Urine RBC <5 /HPF (None Seen); Urine Urobilinogen 1+ (Normal); Urine WBC <5 /HPF (<5)
--- NOTE | 2023-06-24 12:43 | RAD REPORT ---
EXAM DESCRIPTION: CT - Abdomen Pelvis W Contrast - 06/24/2023 12:10 pm CLINICAL HISTORY: ABD PAIN COMPARISON: Abdomen Pelvis W Contrast dated 04/04/2023; Abdomen Pelvis W Contrast dated 8; CT ABD PELVIS W CONTRAST dated 01/29/2014; Stone Protocol dated 04/28/2023; Chest Single View dated 04/28/2023 TECHNIQUE: Thin cut axial CT imaging of the abdomen and pelvis was performed following intravenous a dministration of 100 mL Isovue 300. Multiplanar reformats were generated and reviewed. All CT scans are performed using dose optimization technique as appropriate and may include automated exposure control or mA/KV adjustment according to patient size. FINDINGS: Small layering left pleural effusion. Bibasilar dependent platelike atelectasis and reticu lar opacities suggestive of mild fibrotic changes, stable. . The liver, spleen, and pancreas show no suspicious findings. Gallbladder and biliary tree are also wi thout suspicious finding. Symmetric renal function is seen with no hydronephrosis or suspicious renal mass. Radiodense calculi, measuring 4 mm at the right renal interpolar region and 3 mm of the left superior pole. No dilated bowel loops or bowel wall thickening. Mild colonic diverticulosis. No free air, free fluid or inflammatory stranding. No hernia, mass or bulky lymphadenopathy. The urinary bladder is suboptim ally distended limiting evaluation, with mild pericystic fat stranding, nonspecific. Moderate atherosclerotic calcifications and luminal irregularity throughout the abdominal aorta and i ts bifurcation. Superior endplate compression deformity at T12 with up to moderate vertebral body height loss, progre ssive since the most recent abdominal CT, without adjacent prevertebral/ paraspinous soft tissue swel ling. IMPRESSION: Nonspecific mild pericystic fat stranding, could reflect ongoing acute cystitis in the a ppropriate clinical setting. Small layering left pleural effusion, not significantly changed. Nonobstructing bilateral renal calculi up to 4 mm in size. Superior endplate compression deformity at T12, new/progressive since the prior exam, and likely of s ubacute/remote nature given absence of adjacent swelling. Please correlate with focal pain at that le raman. Colonic diverticulosis.
--- NOTE | 2023-06-24 13:17 | ER ---
Nurse's Notes [facility] Name: Jocelyn Ernst Age: 82 yrs Sex: Male : 1940 Arrival Date: 06/24/2023 Time: 10:02 Bed 16 Private MD: Diagnosis: T12 compression deformity;Atrial fibrillation with slow ventricular rate Presentation: 06/23 10:10 Chief complaint: Family reports lower back pain and foul smelling urine. Pt appears aa5 uncomfortable. 10:10 Method Of Arrival: Wheelchair aa5 10:10 Coronavirus screen: At this time, the client does not indicate any symptoms associated aa5 with coronavirus-19. Ebola Screen: Patient denies travel to an Ebola-affected area in the 21 days before illness onset. Initial Sepsis Screen: Does the patient meet any 2 criteria? No. Patient's initial sepsis screen is negative. Does the patient have a suspected source of infection? No. Patient's initial sepsis screen is negative. Risk Assessment: Do you want to hurt yourself or someone else? Patient reports no desire to harm self or others. Onset of symptoms was 2023. 10:10 Acuity: PUSHPA 3 aa5 Historical: - Allergies: 10:19 Augmentin; aa5 10:19 diltasone; aa5 10:19 Lipitor; aa5 10:19 Plavix; aa5 10:19 Pravachol; aa5 10:19 Prednisone; aa5 10:19 Proscar; aa5 10:19 Spiriva with HandiHaler; aa5 10:19 Toprol XL; aa5 - Home Meds: 12:42 simvastatin 40 mg Oral tablet nightly [Active]; omeprazole 40 mg Oral capsule,delayed hb release (e.c.) daily [Active]; potassium chloride 20 mEq Oral Tablet, ER Particles/Crystals 2 times per day [Active]; donepezil 10 mg oral tablet twice a day [Active]; 13:16 memantine 10 mg oral tablet 2 times per day [Active]; aspirin 81 mg Oral hb tablet,chewable daily [Active]; PreserVision AREDS 2,148 mcg-113 mg-45 mg-17.4mg oral tablet 2 times per day [Active]; MegaRed [place]-3 Krill Oil oral daily [Active]; finasteride 5 mg oral tablet nightly [Active]; valsartan 40 mg oral tablet daily [Active]; B12 Active 1,000 mcg oral tablet,chewable nightly [Active]; Vitamin D3 125 mcg (5,000 unit) oral tablet daily [Active]; montelukast 10 mg oral tablet daily [Active]; topiramate 25 mg oral Capsule, Sprinkle daily [Active]; Acidophilus Oral daily [Active]; - PMHx: 10:19 Alzheimer's disease; BPH; depressive disorder; Gastric Reflux; Hyperlipidemia; aa5 Hypertension; Migraine; - PSHx: 10:19 Carotid endarterectomy; Coronary Angioplasty; Coronary artery bypass graft; Stented aa5 artery; 13:16 Carpal Tunnel - Right Hand; hb - Immunization history:: Adult Immunizations unknown. - Infectious Disease History:: Denies. - Family history:: not pertinent. - Social history:: Smoking status: Patient denies any tobacco usage or history of. Screenin:21 [facility] ED Fall Risk Assessment (Adult) History of falling in the last 3 months, db including since admission No falls in past 3 months (0 pts) Confusion or Disorientation No (0 pts) Intoxicated or Sedated No (0 pts) Impaired Gait Yes (1 pt) Mobility Assist Device Used Yes (1 pt) Altered Elimination Yes (1 pt) Score/Fall Risk Level 0 - 2 = Low Risk Oriented to surroundings, Maintained a safe environment. Abuse screen: Denies threats or abuse. Denies injuries from another. Nutritional screening: No deficits noted. Tuberculosis screening: No symptoms or risk factors identified. Assessment: 10:22 Reassessment: Patient appears in no apparent distress at this time. Patient and/or db family updated on plan of care and expected duration. Pain level reassessed. Patient is alert, oriented x 3, equal unlabored respirations, skin warm/dry/pink. PAIN WITH MOVING. General: Appears in no apparent distress. comfortable, Behavior is calm, cooperative. Pain: Complains of pain in back. Neuro: Level of Consciousness is awake, alert, obeys commands, Oriented to person, place, time, situation. Respiratory: Airway is patent Respiratory effort is even, unlabored, Respiratory pattern is regular, symmetrical. 11:05 Reassessment: NOTIFIED PATIENT OF NEED FOR URINE. db 11:25 Reassessment: Patient appears in no apparent distress at this time. Patient and/or db family updated on plan of care and expected duration. Pain level reassessed. Patient is alert, oriented x 3, equal unlabored respirations, skin warm/dry/pink. 12:17 Reassessment: Patient appears in no apparent distress at this time. Patient and/or db family updated on plan of care and expected duration. Pain level reassessed. Patient is alert, oriented x 3, equal unlabored respirations, skin warm/dry/pink. 12:45 Reassessment: REPEAT EKG DONE DUE TO PT HEART RATE IN 30'S. db 13:35 Reassessment: Patient appears in no apparent distress at this time. Patient and/or db family updated on plan of care and expected duration. Pain level reassessed. Patient is alert, oriented x 3, equal unlabored respirations, skin warm/dry/pink. Patient states feeling better. Neuro: Level of Consciousness is awake, alert, obeys commands, Oriented to person, place, time, situation. Vital Signs: 10:10 BP 201 / 72; Pulse 62; Resp 19 S; Temp 97.7(O); Pulse Ox 96% on R/A; Weight 87.09 kg aa5 (R); Height 6 ft. 1 in. (R); 11:00 BP 183 / 66; Pulse 53; Resp 18; Pulse Ox 95% ; db 12:15 BP 196 / 72; Pulse 65; Resp 18; Pulse Ox 94% ; db 13:00 BP 186 / 66; Pulse 47; Resp 18; Temp 97.8; Pulse Ox 95% ; db 10:10 Body Mass Index 25.33 (87.09 kg, 185.42 cm) aa5 ED Course: 10:07 Patient arrived in ED. mg5 10:10 Arm band placed on. aa5 10:15 Michael Jurado MD is Attending Physician. rt 10:19 Triage completed. aa5 10:22 Krystle Lovell RN is Primary Nurse. db 10:45 First set of blood cultures drawn by me. db 11:08 Initial lab(s) drawn, by me, sent to lab. Second set of blood cultures drawn by me. db Inserted saline lock: 20 gauge in left wrist, using aseptic technique. Blood collected. 11:24 Patient has correct armband on for positive identification. Placed in gown. Bed in low db position. Call light in reach. Side rails up X2. Client placed on continuous cardiac and pulse oximetry monitoring. NIBP monitoring applied. site monitor on. Pulse ox on. NIBP on. Warm blanket given. 12:12 CT Abd/Pelvis - IV Contrast Only In Process Unspecified. EDMS 12:16 Patient [address] back from CT. db 12:17 Urine collected: clean catch specimen, clear. db 12:44 EKG done, by ED staff, reviewed by Michael Jurado MD. db 13:35 Provided Education on: DISCHARGE AND AFIB FOLLOWUP. db 13:35 No provider procedures requiring assistance completed. IV discontinued, intact, db bleeding controlled, No redness/swelling at site. 13:42 Primary Nurse role handed off by Krystle Lovell RN Administered Medications: 13:45 Drug: HYDROcodone-acetaminophen PO 5 mg-325 mg 1 tabs PO once Route: PO; db 13:46 Follow up: Response: No adverse reaction db Medication: 12:45 VIS not applicable for this client. db Outcome: 13:17 Discharge ordered by . rt 13:35 Discharged to home via wheelchair, with family, db 13:35 Condition: stable 13:35 Discharge instructions given to patient, family, Instructed on discharge instructions, follow up and referral plans. Prescriptions given X 1, 13:37 Patient left the ED. db 13:46 Patient left the ED. db Signatures: Dispatcher [employer] EDNE Alma Bird, RN RN aa5 Selene Hardy RN RN Krystle Brandt, RN RN Michael Rosario MD MD rt Brenda Fraser mg5
--- NOTE | 2023-06-24 13:17 | EDPHYS ---
Physician Documentation [facility] Name: Jocelyn Ernst Age: 82 yrs Sex: Male : 1940 Arrival Date: 06/24/2023 Time: 10:02 Bed 16 Private MD: ED Physician Michael Jurado HPI: 06/23 11:26 This 82 yrs old Male presents to ER via Wheelchair with complaints of Foul smelling rt urine, Back Pain. 11:26 Patient presents to the ED with foul-smelling urine for about 1 week. Patient had rt previously completed a 10-day course of antibiotics and was improving, but, started having worsening symptoms after cessation of antibiotics. Does report of back pain, lower and bilateral. Family states that the patient is sluggish. Denies other acute complaints, symptoms are moderate in severity, no other aggravating or alleviating factors.. Historical: - Allergies: 10:19 Augmentin; aa5 10:19 diltasone; aa5 10:19 Lipitor; aa5 10:19 Plavix; aa5 10:19 Pravachol; aa5 10:19 Prednisone; aa5 10:19 Proscar; aa5 10:19 Spiriva with HandiHaler; aa5 10:19 Toprol XL; aa5 - Home Meds: 12:42 simvastatin 40 mg Oral tablet nightly [Active]; omeprazole 40 mg Oral capsule,delayed hb release (e.c.) daily [Active]; potassium chloride 20 mEq Oral Tablet, ER Particles/Crystals 2 times per day [Active]; donepezil 10 mg oral tablet twice a day [Active]; 13:16 memantine 10 mg oral tablet 2 times per day [Active]; aspirin 81 mg Oral hb tablet,chewable daily [Active]; PreserVision AREDS 2,148 mcg-113 mg-45 mg-17.4mg oral tablet 2 times per day [Active]; MegaRed [place]-3 Krill Oil oral daily [Active]; finasteride 5 mg oral tablet nightly [Active]; valsartan 40 mg oral tablet daily [Active]; B12 Active 1,000 mcg oral tablet,chewable nightly [Active]; Vitamin D3 125 mcg (5,000 unit) oral tablet daily [Active]; montelukast 10 mg oral tablet daily [Active]; topiramate 25 mg oral Capsule, Sprinkle daily [Active]; Acidophilus Oral daily [Active]; - PMHx: 10:19 Alzheimer's disease; BPH; depressive disorder; Gastric Reflux; Hyperlipidemia; aa5 Hypertension; Migraine; - PSHx: 10:19 Carotid endarterectomy; Coronary Angioplasty; Coronary artery bypass graft; Stented aa5 artery; 13:16 Carpal Tunnel - Right Hand; hb - Immunization history:: Adult Immunizations unknown. - Infectious Disease History:: Denies. - Family history:: not pertinent. - Social history:: Smoking status: Patient denies any tobacco usage or history of. ROS: 11:26 Unable to obtain ROS due to baseline dementia, rt Exam: 11:26 Constitutional: This is a well developed, well nourished patient who is awake, alert, rt and in no acute distress. Head/Face: Normocephalic, atraumatic. Chest/axilla: Normal chest wall appearance and motion. Nontender with no deformity. No lesions are appreciated. Cardiovascular: Regular rate and rhythm with a normal S1 and S2. No gallops, murmurs, or rubs. Normal PMI, no JVD. No pulse deficits. Respiratory: Lungs have equal breath sounds bilaterally, clear to auscultation and percussion. No rales, rhonchi or wheezes noted. No increased work of breathing, no retractions or nasal flaring. Abdomen/GI: Soft, non-tender, with normal bowel sounds. No distension or tympany. No guarding or rebound. No evidence of tenderness throughout. Skin: Warm, dry with normal turgor. Normal color with no rashes, no lesions, and no evidence of cellulitis. MS/ Extremity: Pulses equal, no cyanosis. Neurovascular intact. Full, normal range of motion. 11:29 ECG was reviewed by the Attending Physician. rt 15:42 ECG was reviewed by the Attending Physician. rt Vital Signs: 10:10 BP 201 / 72; Pulse 62; Resp 19 S; Temp 97.7(O); Pulse Ox 96% on R/A; Weight 87.09 kg aa5 (R); Height 6 ft. 1 in. (R); 11:00 BP 183 / 66; Pulse 53; Resp 18; Pulse Ox 95% ; db 12:15 BP 196 / 72; Pulse 65; Resp 18; Pulse Ox 94% ; db 13:00 BP 186 / 66; Pulse 47; Resp 18; Temp 97.8; Pulse Ox 95% ; db 10:10 Body Mass Index 25.33 (87.09 kg, 185.42 cm) aa5 MDM: 10:24 Patient medically screened. rt 15:42 Differential diagnosis: UTI, A-fib, compression fracture. Data reviewed: vital signs, rt nurses notes. Consideration of Admission/Observation Escalation of care including admission/observation considered. Discussed with cardiology on-call, states nothing to do for A-fib with slow ventricular rate. Patient without UTI, signs of sepsis. Was informed of findings of compression fractures, likely the etiology of the pain. Patient does have follow-up appointments this week. Family is comfortable with discharge, no need indications for admission to the hospital, stable for outpatient care.. I considered the following discharge prescriptions or medication management in the emergency department Medications were administered in the Emergency Department. See MAR. Independent interpretation of the following test(s) in the Emergency Department CT Scan: My interpretation is No ureteral obstruction seen on my interpretation of CT scan images. Care significantly affected by the following chronic conditions: Alzheimer's dementia. Counseling: I had a detailed discussion with the patient and/or guardian regarding the historical points, exam findings, and any diagnostic results supporting the discharge/admit diagnosis, lab results, radiology results, the need for outpatient follow up. 06/23 10:36 Order name: Blood Culture Adult (2) rt 06/23 10:36 Order name: CBC with Diff; Complete Time: 12:24 rt 06/23 10:36 Order name: CMP; Complete Time: 12:24 rt 06/23 10:36 Order name: Lactate w/ 2H reflex if indic.; Complete Time: 12:24 rt 06/23 10:36 Order name: Protime (+inr); Complete Time: 12:24 rt 06/23 10:36 Order name: Ptt, Activated; Complete Time: 12:24 rt 06/23 10:36 Order name: Urinalysis w/ reflexes; Complete Time: 12:24 rt 06/23 10:36 Order name: CT Abd/Pelvis - IV Contrast Only; Complete Time: 12:44 rt 06/23 10:36 Order name: EKG; Complete Time: 10:37 rt 06/23 10:36 Order name: Accucheck; Complete Time: 12:22 rt 06/23 10:36 Order name: Cardiac monitoring; Complete Time: 34 rt 06/23 10:36 Order name: EKG - Nurse/Tech; Complete Time: rt 06/23 10:36 Order name: IV Saline Lock - Large Bore; Complete Time: 34 rt 06/23 10:36 Order name: Labs collected and sent; Complete Time: rt 06/23 10:36 Order name: O2 Per Protocol; Complete Time: rt 06/23 10:36 Order name: O2 Sat Monitoring; Complete Time: rt 06/23 10:36 Order name: Vital Signs; Complete Time: 34 rt EC:29 Rate is 54 beats/min. Rhythm is regular, Sinus bradycardia with Right bundle branch rt block. Left axis deviation noted. MN interval is prolonged at 290 msec. QT interval is normal. No Q waves. 15:42 Rate is 63 beats/min. Rhythm is irregularly irregular, A fib with Right bundle branch rt block. Left axis deviation noted. QT interval is normal. No Q waves. Administered Medications: 13:45 Drug: HYDROcodone-acetaminophen PO 5 mg-325 mg 1 tabs PO once Route: PO; db 13:46 Follow up: Response: No adverse reaction db Disposition Summary: 06/24/23 13:17 Discharge Ordered Notes: Location: Home rt Problem: new rt Symptoms: have improved rt Condition: Stable rt Diagnosis - T12 compression deformity rt - Atrial fibrillation with slow ventricular rate rt Followup: rt - With: Private Physician - When: 1 - 2 days - Reason: Discharge Instructions: - Discharge Summary Sheet rt - Atrial Fibrillation rt - Spinal Compression Fracture rt Forms: - Medication Reconciliation Form rt - Thank You Letter rt - Antibiotic Education rt - Prescription Opioid Use rt - Patient Portal Instructions rt - Leadership Thank You Letter rt Prescriptions: - Tramadol 50 mg Oral Tablet - take 1 tablet ORAL route every 8 hours as needed; 12 tablet; Refills: 0, rt Product Selection Permitted Signatures: Dispatcher [employer] Alma Culp, RN RN aa5 Selene Hardy RN RN hb Krystle Lovell RN RN db Michael Jurado MD MD rt
[2023-06-24] MEDS ORDERED: HYDROCODONE/APAP 5/325 MG TAB ONE (13:44)
[2023-06-24 14:45] VITALS: O2SAT 95
[2023-06-24 15:19] VITALS: BP 186/66; TEMP 97.8
== END 2023-06-24 13:46 | disposition home or self-care (01) ==
LOC: ER 10:02
DX: S22.080A Wedge compression fracture of T11-T12 vertebra, initial encounter for closed fracture (principal); I48.91 Unspecified atrial fibrillation; I10 Essential (primary) hypertension; G30.9 Alzheimer's disease, unspecified; F02.80 Dementia in other diseases classified elsewhere, unspecified severity, without behavioral disturbance, psychotic disturbance, mood disturbance, and anxiety; Z79.82 Long term (current) use of aspirin; Z95.1 Presence of aortocoronary bypass graft; Z98.61 Coronary angioplasty status; Z88.1 Allergy status to other antibiotic agents; Z88.8 Allergy status to other drugs, medicaments and biological substances
CPT/HCPCS: 93005 ×3; 87040 ×2; 85025; 81001; 36415; 85610; 83605; 85730; 80053; 74177; 99285; Q9967

== ENCOUNTER 2024-03-27 12:59 | Day surgery (SDC) | payer OTHER ==
[2024-03-24 14:13] LABS: Absolute Basophils 0.1 K/uL (0-0.5); Absolute Eosinophils 0.1 K/uL (0-0.5); Absolute Lymphocytes (CBC) 1.4 K/uL (0.7-4.9); Absolute Monocytes 0.6 K/uL (0.1-1.3); Absolute Neutrophil 6.2 K/uL (1.8-8.0); Basophils % 0.7 % (0-1.3); Eosinophils % 1.2 % (0-4.4); Hematocrit 39.2 % (39.6-49.0); Hemoglobin 12.6 g/dL (13.6-17.9); Lymphocytes % 16.7 % (15.3-44.8); MCHC 32.3 g/dL (32.0-36.0); MCV 92.8 fL (80-100); MPV 8.4 fL (7.6-11.3); Monocytes % 6.9 % (3.3-12.3); Neutrophils % 74.5 % (41.7-73.7); Nucleated Red Blood Cells % 0.2 % (0-0); Platelets 166 thou/uL (152-406); RBC Red Blood Cell Count 4.22 M/uL (4.33-5.43); Red Cell Distribution Width 19.6 % (12.1-15.2)
[2024-03-24 14:27] LABS: Anion Gap 8.7 mEq/L (5.0-15.0); Potassium 4.7 mEq/L (3.5-5.1)
[2024-03-24 14:53] LABS: PT Prothrombin Time 12.9 SECONDS (9.4-12.5); PTT, Activated Partial Thromb 33.8 SECONDS (24.3-36.9); Protime INR 1.23
--- NOTE | 2024-03-24 20:35 | RAD REPORT ---
EXAMINATION: TWO VIEW CHEST XR CLINICAL INDICATION: Male, 83 years old. HS MAIN pre op. Hypertension TECHNIQUE: 2 view radiographs of the chest were performed. COMPARISON: 09/19/2023 FINDINGS: The lungs are slightly suboptimally inflated with stable chronic fibrotic changes and mild hyperlucen cy. Bibasilar atelectatic changes, stable. Left chest wall pacer in place. Sternal fusion plate is again seen.. No pneumothorax or sizable effusion. The heart is normal in size. Mediastinal contours a re unremarkable. IMPRESSION: No acute or significant abnormalities. Stable chronic findings as above.
--- NOTE | 2024-03-27 12:02 | EKG ---
Test Date: 2024-03-24 Test Time: 15:02:18 Truant Officer: ROBERTO MEASUREMENT RESULTS: Intervals: Rate: 62 DE: 212 QRSD: 162 QT: 432 QTc: 438 [place]: P: 56 DE: 212 QRS: -71 T: 105 INTERPRETIVE STATEMENTS: Electronic ventricular pacemaker Compared to ECG 09/21/2023 07:00:21 Sinus tachycardia no longer present Electronically Signed On 03-27-24 12:00:22 CLAY TEMPERER by Roosevelt Truong
[2024-03-27] MEDS: NA CHLORIDE 0.9% 500 ML ONE (13:32)
[2024-03-27] MEDS ORDERED: LIDOCAINE 1% 20 ML MDV ONE (14:48)
[2024-03-27] MEDS ORDERED: VERAPAMIL HCL 10 MG/4 ML VIAL IV ONE (14:48)
[2024-03-27] MEDS ORDERED: HEPARIN 10,000 UNIT/10 ML VIAL IV ONE (14:48)
[2024-03-27] MEDS ORDERED: ATROPINE SULF 1 MG/10 ML SYR IV ONE (14:49)
[2024-03-27] MEDS ORDERED: MIDAZOLAM HCL 2 MG/2 ML INJ ONE (14:49)
[2024-03-27] MEDS ORDERED: HEPARIN 5000 UNIT/ML 1 ML VIAL ONE (14:50)
[2024-03-27] MEDS ORDERED: ASPIRIN 325 MG TAB ONE (14:50)
[2024-03-27] MEDS ORDERED: TICAGRELOR 90 MG TABLET PO ONE (14:50)
[2024-03-27] MEDS ORDERED: FENTANYL CITR 100 MCG/2 ML ONE (14:50)
[2024-03-27] MEDS ORDERED: ACETAMINOPHEN 325 MG TABLET ONE (17:58)
[2024-03-27] MEDS ORDERED: ONDANSETRON 4 MG/2 ML VIAL ONE (18:04)
--- NOTE | 2024-03-27 19:56 | OP ---
Date of Procedure: 03/27/2024 Surgeon: ASPEN HER Procedures Performed: 1.Coronary angiogram. 2.Left heart catheterization. 3.Right heart catheterization. 4.Left subclavian artery angiogram. Indication: Chest pain with positive stress test and severe shortness of breath. Access: 1.Right common femoral artery 6-Australian, closed with 6-Australian Mynx closure device. 2.Right common femoral vein 7-Australian, closed with manual pressure. Complications: None. Bleeding: Less than 50 mL. Anesthesia: Total sedation time was 1 hour, used fentanyl and Versed. Description Of Procedure: After risks, benefits, and alternatives were explained, the patient agreed to procedure and signed informed consent. The patient was brought into cardiac catheterization labo [facility], prepped and draped in usual sterile fashion. Then, I accessed right common femoral artery an d right common femoral vein using micropuncture kit and ultrasound guidance, placed 6-Australian Gruetli Laager sheath in the femoral artery and 7-Australian Gruetli Laager sheath in the femoral vein, and then took a ballo on tipped 7-Australian Hixson catheter into the right atrium, right ventricle, pulmonary artery and wedge, obtained waveform and pressure and obtained cardiac output by thermodilutional method, then removed t he Hixson and then I took a 6-Australian JL4 catheter through the arterial sheath into the aortic root, eng aged left main, took standard views, exchanged for 6-Australian JR4 catheter, crossed the aortic valve, m easured the LVEDP. Pullback did not record any gradient. Then I engaged the RCA, took standard view s, and then engaged the SVG that was occluded and then cannulated subclavian artery, performed a subc lavian angiogram, showed significant area of stenosis. Then, I engaged the NAYLOR and took standard vi ews and then removed the catheter and removed the arterial sheath and placed 6-Australian Mynx closure de vice with good hemostasis and then removed the venous sheath and the manual pressure was applied with good hemostasis. Findings: 1.Coronary angiogram. a.Left main; diffusely diseased 99%. b.LAD; 90% proximal and then after diagonal branch is 99% stenosis. c.Left circumflex is totally occluded. 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 There are collaterals coming from the LAD to the RCA that is significant. 2.Bypass graft study. a.Occluded SVG graft which was probably connected to the RCA. b.Widely patent NAYLOR to LAD. c.Right heart cath numbers: RA pressure was 6, RV pressure was 66/1, mean of 10. PA pressure was 6 8/23, mean of 38. Pulmonary wedge pressure is 23 mmHg. d.LVEDP is between 20 and 25 mmHg. e.Cardiac output average was 4.5 L/min. 3.Left subclavian artery angiogram: There is a mid severe about 90% stenosis of the left subclavian and the subclavian artery is about 11 mm in diameter. The pressure postdiagnosis is 100/60, and the pressure before the stenosis was 157/64. Conclusion: 1.Severe campo coronary artery disease with only patent NAYLOR to LAD. All the other grafts are occl uded. 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 3.Severe mid left subclavian artery stenosis before the takeoff of the NAYLOR. Recommendation: Balloon angioplasty and stent placement of the left subclavian at [place]. SR/MODL Voice ID: [id number] Report ID: [id number]
[2024-03-28 02:59] VITALS: BP 129/69; TEMP 97.5; O2SAT 95
== END 2024-03-27 19:33 | disposition home or self-care (01) ==
LOC: CCL 12:59
PROVIDERS: ATTEND Internal Medicine
DX: I25.110 Atherosclerotic heart disease of native coronary artery with unstable angina pectoris (principal); I25.810 Atherosclerosis of coronary artery bypass graft(s) without angina pectoris; I25.82 Chronic total occlusion of coronary artery; I70.8 Atherosclerosis of other arteries; T82.855A Stenosis of coronary artery stent, initial encounter; I10 Essential (primary) hypertension; E78.2 Mixed hyperlipidemia; Z95.1 Presence of aortocoronary bypass graft; Z95.0 Presence of cardiac pacemaker; Z79.82 Long term (current) use of aspirin; Z79.899 Other long term (current) drug therapy; Z88.0 Allergy status to penicillin; Z88.8 Allergy status to other drugs, medicaments and biological substances
CPT/HCPCS: 93005; 85025; 80048; 36415; 85610; 85730; 71046; 36225; 93461; 76937; C1893; Q9967; J1644; J2003; J2250; J3010; J2405; J7040; C1760; 99152; 99153; J0461

== ENCOUNTER 2024-04-11 13:26 | Emergency (ER) | payer OTHER ==
[2024-04-11] MEDS ORDERED: NITROFURAN MACRO 100 MG CAP PO ONE (15:41)
[2024-04-11] MEDS ORDERED: NA CHLORIDE 0.9% 1,000 ML ONE (15:41)
[2024-04-11 15:45] LABS: Specific Gravity > 1.030 (1.005-1.030); Sqamous Epithelial <5 /HPF (None Seen); Urine Bacteria <20 /HPF (<20); Urine Bilirubin NEGATIVE (Negative); Urine Blood 3+ (OVER) (Negative); Urine Clarity Extremely Turbid (Clear); Urine Color Yellow (Yellow); Urine Crystals Unidentified Few /HPF (None Seen); Urine Culture Reflex Order REFLEXED; Urine Glucose NEGATIVE (Negative); Urine Ketones NEGATIVE (Negative); Urine Micro Reflex YN NO BILL MICROSCOPIC; Urine Nitrite NEGATIVE (Negative); Urine Protein 2+ (Negative); Urine RBC >50 /HPF (None Seen); Urine Urobilinogen 1+ (Normal); Urine WBC >50 /HPF (<5); Urine WBC Clump Moderate /HPF (None Seen); Urine Yeast (Budding) Few /HPF (None Seen); Urine pH 5.5 (5.0-7.0)
[2024-04-11 16:26] LABS: Absolute Basophils 0.1 K/uL (0-0.5); Absolute Eosinophils 0.1 K/uL (0-0.5); Absolute Lymphocytes (CBC) 1.5 K/uL (0.7-4.9); Absolute Monocytes 0.6 K/uL (0.1-1.3); Absolute Neutrophil 6.3 K/uL (1.8-8.0); Eosinophils % 1.3 % (0-4.4); Hematocrit 36.3 % (39.6-49.0); Lymphocytes % 17.1 % (15.3-44.8); MCH 30.2 pg (27.0-35.0); MCHC 33.1 g/dL (32.0-36.0); MCV 91.5 fL (80-100); MPV 9.7 fL (7.6-11.3); Monocytes % 6.7 % (3.3-12.3); Neutrophils % 73.9 % (41.7-73.7); Platelets 177 thou/uL (152-406); RBC Red Blood Cell Count 3.97 M/uL (4.33-5.43); Red Cell Distribution Width 19.5 % (12.1-15.2)
[2024-04-11 16:31] LABS: Anion Gap 12.6 mEq/L (5.0-15.0); Potassium 4.6 mEq/L (3.5-5.1)
--- NOTE | 2024-04-11 16:37 | ER ---
Nurse's Notes [facility] Name: Jocelyn Ernst Age: 83 yrs Sex: Male : 1940 Arrival Date: 04/11/2024 Time: 13:26 Bed 9 Private MD: Diagnosis: UTI/ Urinary tract infection, site not specified Presentation: 04/11 13:36 Chief complaint: Patient states: Finished antibiotics Sunday for UTI. Has pain and ll1 dark colored urine. Sent in for further evaluation. Coronavirus screen: Client denies travel out of the [place] in the last 14 days. At this time, the client does not indicate any symptoms associated with coronavirus-19. Ebola Screen: Patient denies travel to an Ebola-affected area in the 21 days before illness onset. Initial Sepsis Screen: Does the patient meet any 2 criteria? No. Patient's initial sepsis screen is negative. Does the patient have a suspected source of infection? No. Patient's initial sepsis screen is negative. Risk Assessment: Do you want to hurt yourself or someone else? Patient reports no desire to harm self or others. Onset of symptoms was April 10, 2024. 13:36 Method Of Arrival: Wheelchair ll1 13:36 Acuity: PUSHPA 3 ll1 Historical: - Allergies: 13:35 Augmentin; ll1 13:35 diltasone; ll1 13:35 Lipitor; ll1 13:35 Plavix; ll1 13:35 Pravachol; ll1 13:35 Prednisone; ll1 13:35 Proscar; ll1 13:35 Spiriva with HandiHaler; ll1 13:35 Toprol XL; ll1 - PMHx: 13:35 Alzheimer's disease; BPH; Gastric Reflux; depressive disorder; Hyperlipidemia; ll1 Hypertension; Migraine; - PSHx: 13:35 Carpal Tunnel - Right Hand; Coronary Angioplasty; Carotid endarterectomy; Coronary ll1 artery bypass graft; Stented artery; - Immunization history:: Adult Immunizations up to date. - Social history:: Smoking status: Patient denies any tobacco usage or history of. Screenin:40 Abuse screen: No signs of abuse noted. aa5 14:40 [facility] ED Fall Risk Assessment (Adult) History of falling in the last 3 months, aa5 including since admission Yes- fall prone (multiple falls) (3 pts) Confusion or Disorientation Yes (5 pts) Intoxicated or Sedated No (0 pts) Impaired Gait Yes (1 pt) Mobility Assist Device Used Yes (1 pt) Altered Elimination Yes (1 pt) Score/Fall Risk Level 3 or more points = High Risk Oriented to surroundings, Maintained a safe environment, Educated pt \T\ family on fall prevention, incl call for assistance when getting out of bed, Assessed \T\ reinforced patient's understanding of fall precautions. Nutritional screening: No deficits noted. Tuberculosis screening: No symptoms or risk factors identified. Assessment: 14:40 General: Appears comfortable, Behavior is calm, cooperative. Pain: Complains of pain in aa5 head of penis with urination. Neuro: Level of Consciousness is awake, alert, obeys commands, Oriented to person, place, situation. Cardiovascular: Patient's skin is warm and dry. Respiratory: Airway is patent Respiratory effort is even, unlabored, Respiratory pattern is regular, symmetrical. GI: No signs and/or symptoms were reported involving the gastrointestinal system. : to gravity drainage Reports pain with urination. EENT: No signs and/or symptoms were reported regarding the EENT system. Derm: Skin is pink, warm \T\ dry. 15:23 Neuro: Level of Consciousness is awake, alert, obeys commands, Oriented to person, aa5 place, situation. Respiratory: Airway is patent Respiratory effort is even, unlabored, Respiratory pattern is regular, symmetrical. Derm: Skin is pink, warm \T\ dry. 15:23 Reassessment: Pt's daughter and remain at bedside. . aa5 16:06 Reassessment:. Neuro: Level of Consciousness is awake, alert, obeys commands, Oriented aa5 to person, place, situation. Respiratory: Airway is patent Respiratory effort is even, unlabored, Respiratory pattern is regular, symmetrical. Derm: Skin is dry, Skin is normal, Skin temperature is warm. Vital Signs: 13:36 BP 119 / 58; Pulse 65; Resp 18; Temp 98; Pulse Ox 97% ; Weight 78.93 kg; Height 6 ft. 1 ll1 in. ; Pain 6/10; 16:00 BP 145 / 88; Pulse 72; Resp 16 S; Pulse Ox 98% on R/A; aa5 13:36 Body Mass Index 22.96 (78.93 kg, 185.42 cm) ll1 13:36 Pain Scale: Adult ll1 ED Course: 13:30 Patient arrived in ED. sj2 13:32 Concha Finley PA-C is PHCP. sb4 13:32 Vivek Camp DO is Attending Physician. sb4 13:38 Triage completed. ll1 13:38 Arm band placed on. ll1 14:10 Esme Dixon MD is Attending Physician. sb4 14:19 Alma Bird, RN is Primary Nurse. aa5 14:40 Patient has correct armband on for positive identification. Bed in low position. Call aa5 light in reach. Side rails up X2. Adult w/ patient. Pulse ox on. NIBP on. 14:45 Rodriguez cath removed intact, balloon deflated. aa5 14:48 Rodriguez cath inserted, using sterile technique, 18 Fr., by nc, balloon inflated, to aa5 gravity drainage, other Not enough urine to collect at this time, will attempt later. 15:23 Urine collected: clean catch specimen, sent to lab. aa5 16:04 Inserted saline lock: 20 gauge in right forearm, using aseptic technique. Blood aa5 collected. Flushed with 10 mL NS. 17:00 No provider procedures requiring assistance completed. IV discontinued, intact, hb bleeding controlled, No redness/swelling at site. Pressure dressing applied. Administered Medications: 16:06 Drug: NS 0.9% IV 1000 ml IV at 1 bolus Per protocol; to be given as a bolus over 60 aa5 minutes Route: IV; Rate: 1 bolus; Site: right forearm; 16:06 Drug: Macrobid PO 100 mg PO once; administer with food Route: PO; aa5 Medication: 16:06 VIS not applicable for this client. aa5 Outcome: 16:37 Discharge ordered by . sb4 17:00 Discharged to home via wheelchair, with family, hb 17:00 Condition: stable 17:00 Discharge instructions given to patient, family, Instructed on medication usage, Demonstrated understanding of instructions, follow-up care, medications, Prescriptions given X 1, 17:00 Patient left the ED. hb Signatures: Alma Bird RN RN aa5 Selene Hardy RN RN hb Maurice James RN RN ll1 Concha Finley PA-C PA-C sb4 [place], Sonceria sj2
--- NOTE | 2024-04-11 16:37 | EDPHYS ---
Physician Documentation [facility] Name: Jocelyn Ernst Age: 83 yrs Sex: Male : 1940 Arrival Date: 04/11/2024 Time: 13:26 Bed 9 Private MD: ED Physician Esme Dixon HPI: 04/11 13:47 This 83 yrs old Male presents to ER via Wheelchair with complaints of Urinary problem. sb4 13:47 Patient and family report dark-colored urine with sediment in indwelling bhatia catheter sb4 for several days. States that he was diagnosed with UTI a little over a week ago and was placed on Bactrim. They were told the culture grew Klebsiella and E. coli. Family states that the urine cleared up some while on the antibiotic but never fully returned to normal. Patient is now complaining of pain in his penis and like he has to push his urine out. Bhatia catheter is draining appropriately. Historical: - Allergies: 13:35 Augmentin; ll1 13:35 diltasone; ll1 13:35 Lipitor; ll1 13:35 Plavix; ll1 13:35 Pravachol; ll1 13:35 Prednisone; ll1 13:35 Proscar; ll1 13:35 Spiriva with HandiHaler; ll1 13:35 Toprol XL; ll1 - PMHx: 13:35 Alzheimer's disease; BPH; Gastric Reflux; depressive disorder; Hyperlipidemia; ll1 Hypertension; Migraine; - PSHx: 13:35 Carpal Tunnel - Right Hand; Coronary Angioplasty; Carotid endarterectomy; Coronary ll1 artery bypass graft; Stented artery; - Immunization history:: Adult Immunizations up to date. - Social history:: Smoking status: Patient denies any tobacco usage or history of. ROS: 13:47 Constitutional: Negative for fever, chills, and weight loss, sb4 13:49 : Positive for urinary symptoms, penile pain, sb4 13:49 All other systems are negative, Exam: 13:49 Head/Face: Normocephalic, atraumatic. Eyes: Extra-ocular motions intact. Periorbital sb4 areas with no swelling, redness, or edema. ENT: Mucous membranes moist. Respiratory: No increased work of breathing, no retractions or nasal flaring. 13:49 Constitutional: The patient appears in no acute distress, alert, awake, 13:49 : a bhatia is noted, urine is cloudy, dark with sediment, Vital Signs: 13:36 BP 119 / 58; Pulse 65; Resp 18; Temp 98; Pulse Ox 97% ; Weight 78.93 kg; Height 6 ft. 1 ll1 in. ; Pain 6/10; 16:00 BP 145 / 88; Pulse 72; Resp 16 S; Pulse Ox 98% on R/A; aa5 13:36 Body Mass Index 22.96 (78.93 kg, 185.42 cm) ll1 13:36 Pain Scale: Adult ll1 MDM: 13:32 Medical Screening Exam initiated sb4 14:09 External Records Reviewed: Inpatient record: Urine culture from September 2023 grew E. coli sb4 with sensitivity to Augmentin, cefepime, ceftazidime, ceftriaxone, meropenem, Macrobid, and Zosyn. Patient has an allergy to Augmentin. Will send urine for culture and start patient on Macrobid. Notified patient and family that we will call if urine culture grows a bacteria that is not sensitive to Macrobid. Family knows to return for any urinary retention, significant pain, or fever. 16:36 Data reviewed: vital signs, nurses notes, lab test result(s), and as a result, I will sb4 discharge patient. Counseling: I had a detailed discussion with the patient and/or guardian regarding the historical points, exam findings, and any diagnostic results supporting the discharge/admit diagnosis, lab results, the need for outpatient follow up, for definitive care, to return to the emergency department if symptoms worsen or persist or if there are any questions or concerns that arise at home. 04/11 13:47 Order name: UAM: after replacing bhatia; Complete Time: 15:53 sb4 04/11 13:47 Order name: Urine Culture sb4 04/11 15:23 Order name: CBC with Diff; Complete Time: 16:32 sb4 04/11 15:23 Order name: BMP; Complete Time: 16:32 sb4 04/11 13:47 Order name: Misc. Order: exchange bhatia catheter; Complete Time: 14:52 sb4 04/11 15:23 Order name: IV Start; Complete Time: 16:06 sb4 Administered Medications: 16:06 Drug: NS 0.9% IV 1000 ml IV at 1 bolus Per protocol; to be given as a bolus over 60 aa5 minutes Route: IV; Rate: 1 bolus; Site: right forearm; 16:06 Drug: Macrobid PO 100 mg PO once; administer with food Route: PO; aa5 Disposition Summary: 04/11/24 16:37 Discharge Ordered Notes: Location: Home sb4 Problem: new sb4 Symptoms: have improved sb4 Condition: Stable sb4 Diagnosis - UTI/ Urinary tract infection, site not specified sb4 Followup: sb4 - With: Emergency Department - When: As needed - Reason: Fever > 102 F, Worsening of condition Discharge Instructions: - Discharge Summary Sheet sb4 - Urinary Tract Infection, Adult, [id number] sb4 Forms: - Antibiotic Education sb4 - Patient Portal Instructions sb4 - Leadership Thank You Letter sb4 Prescriptions: - Macrobid 100 mg Oral Capsule - take 1 capsule ORAL route every 12 hours for 7 days; 14 capsule; Refills: 0, sb4 Product Selection Permitted Signatures: Dispatcher [employer] Alma Culp RN RN aa5 Maurice James RN RN ll1 Concha Finley, PAMark PAMarco AntonioC sb4
[2024-04-11 17:14] VITALS: TEMP 98
[2024-04-11 17:20] VITALS: BP 145/88; O2SAT 98
== END 2024-04-11 17:00 | disposition home or self-care (01) ==
LOC: ER 13:26
DX: N39.0 Urinary tract infection, site not specified (principal); G30.9 Alzheimer's disease, unspecified; F02.80 Dementia in other diseases classified elsewhere, unspecified severity, without behavioral disturbance, psychotic disturbance, mood disturbance, and anxiety; Z95.1 Presence of aortocoronary bypass graft
CPT/HCPCS: 87088; 85025; 81001; 87086; 80048; 36415; 87077; 87186; 51702; 99285; J7030

== ENCOUNTER 2024-05-05 19:03 | Inpatient (IN) | payer OTHER ==
[2024-05-05 19:43] LABS: Absolute Eosinophils 0.1 K/uL (0-0.5); Absolute Lymphocytes (CBC) 0.1 K/uL (0.7-4.9); Absolute Monocytes 0.1 K/uL (0.1-1.3); Absolute Neutrophil 14.3 K/uL (1.8-8.0); Basophils % 0.3 % (0-1.3); Eosinophils % 0.4 % (0-4.4); Hematocrit 38.6 % (39.6-49.0); Hemoglobin 12.1 g/dL (13.6-17.9); Lymphocytes % 0.9 % (15.3-44.8); MCH 29.6 pg (27.0-35.0); MCHC 31.4 g/dL (32.0-36.0); MCV 94.1 fL (80-100); MPV 8.2 fL (7.6-11.3); Monocytes % 0.9 % (3.3-12.3); Neutrophils % 97.5 % (41.7-73.7); Nucleated Red Blood Cells % 0.1 % (0-0); Platelets 116 thou/uL (152-406); Red Cell Distribution Width 19.6 % (12.1-15.2)
[2024-05-05 19:57] LABS: Anion Gap 9.8 mEq/L (5.0-15.0); Potassium 3.8 mEq/L (3.5-5.1)
[2024-05-05 20:09] LABS: Anisocytosis 1+; Blood Morphology Comment NOTED (NOT SEEN); Ovalocytes 1+; Platelet Estimate DECR; Poikilocytosis 1+; Polychromasia SLIGHT; White Blood Cell Scan OK (OK)
[2024-05-05] MEDS ORDERED: CEFTRIAXONE 1000 MG/VIAL ONE (20:20)
[2024-05-05 20:41] LABS: Sqamous Epithelial None Seen /HPF (None Seen); Urine Bacteria >50 /HPF (<20); Urine Crystals Unidentified Many /HPF (None Seen); Urine Culture Reflex Order REFLEXED; Urine Micro Reflex YN NO BILL MICROSCOPIC; Urine RBC >50 /HPF (None Seen); Urine WBC >50 /HPF (<5); Urine WBC Clump Many /HPF (None Seen); Urine Yeast (Budding) Many /HPF (None Seen)
--- NOTE | 2024-05-05 20:47 | RAD REPORT ---
EXAMINATION: CT HEAD WITHOUT CONTRAST CLINICAL INDICATION: Male, 83 years old.CONFUSED TECHNIQUE: Axial CT images from the skull base to the vertex without intravenous contrast. Coronal an d sagittal reformatted images were created from the data set. One or more of the following dose reduction techniques were used: Automated exposure control, adjustment of the mA and/or kV according to patient size, and/or iterative reconstruction. Unless otherwise specified, incidental findings do not require dedicated imaging follow-up. [id number]. COMPARISON: 09/19/2023 FINDINGS: INTRACRANIAL: No acute intracranial hemorrhage. No hydrocephalus. No mass effect or midline shift. Mo derate chronic small vessel ischemic changes.Remote right cerebellar infarct. Age advanced cerebral atrophy. VASCULATURE: No visualized abnormalities in the arteries or dural venous sinuses. SCALP/SKULL: No significant soft tissue or osseous abnormalities. SINUSES: The visualized paranasal sinuses and mastoid air cells are predominantly clear. IMPRESSION: No acute intracranial abnormality.
--- NOTE | 2024-05-05 20:54 | RAD REPORT ---
EXAMINATION: CT ABDOMEN AND PELVIS WITHOUT CONTRAST CLINICAL INDICATION: Male, 83 years old.ABD PAIN TECHNIQUE: CT abdomen and pelvis was performed, without IV contrast, as per department protocol. Axia l, sagittal and coronal reconstructions were obtained. One or more of the following dose reduction techniques were used: Automated exposure control, adjustment of the mA and/or kV according to the pat ient size, and/or iterative reconstruction. Unless otherwise specified, incidental findings do not require dedicated imaging follow-up. [id number]. IV CONTRAST: Not administered. COMPARISON: 09/19/2023 FINDINGS: The lack of intravenous contrast limits the sensitivity of this exam for evaluation of solid visceral organs, vascular structures, and retroperitoneum. LOWER CHEST: Bilateral pleural effusions and associated atelectasis.Moderate cardiomegaly. Multivesse l coronary artery calcifications.Pacemaker leads UPPER GI: No significant abnormality. LIVER: No significant focal abnormality. GALLBLADDER/BILE DUCTS: No biliary ductal dilatation.? PANCREAS: Atrophy, but otherwise unremarkable. SPLEEN: Unremarkable. ADRENALS: No adrenal masses. KIDNEYS AND URETERS: No hydronephrosis.Limited evaluation for renal lesions in the absence of IV cont rast.No renal calculi. ABDOMINAL AORTA AND OTHER VESSELS: Moderate atherosclerotic changes without aortic aneurysm. PERITONEUM: No abnormal free fluid. No free air. LYMPH NODES: No pathologic lymphadenopathy. ABDOMINAL WALL: Unremarkable SMALL BOWEL/COLON: Small bowel has normal course and caliber. No colonic wall thickening or pericolon ic inflammatory changes. Moderate diverticulosis without diverticulitis. 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 REPRODUCTIVE ORGANS: Uterus surgically absent. No adnexal abnormality. MUSCULOSKELETAL: Multilevel degenerative changes in the spine. No acute fracture. ADDITIONAL FINDINGS: None. 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 Correlate with u rinalysis. Other incidental findings as noted above.
--- NOTE | 2024-05-05 21:01 | ER ---
Nurse's Notes [facility] Name: Jocelyn Ernst Age: 83 yrs Sex: Male : 1940 Arrival Date: 05/05/2024 Time: 19:03 Bed 7 Private MD: Diagnosis: Pyelonephritis Presentation: 05/05 19:30 Chief complaint: EMS states: blood in urinary catheter. Also reports syncopal episode cp4 at scene. No injuries. Coronavirus screen: Client denies travel out of the [place] in the last 14 days. At this time, the client does not indicate any symptoms associated with coronavirus-19. Ebola Screen: Patient negative for fever greater than or equal to 101.5 degrees Fahrenheit, and additional compatible Ebola Virus Disease symptoms Patient denies exposure to infectious person. Patient denies travel to an Ebola-affected area in the 21 days before illness onset. No symptoms or risks identified at this time. Initial Sepsis Screen: Does the patient meet any 2 criteria? No. Patient's initial sepsis screen is negative. Does the patient have a suspected source of infection? No. Patient's initial sepsis screen is negative. Risk Assessment: Do you want to hurt yourself or someone else? Patient reports no desire to harm self or others. Onset of symptoms was May 05, 2024. 19:30 Method Of Arrival: EMS: [facility] cp4 19:30 Acuity: PUSHPA 3 cp4 Triage Assessment: 19:32 General: Appears in no apparent distress. comfortable, Behavior is calm, cooperative, cp4 appropriate for age. Pain: Denies pain. EENT: No signs and/or symptoms were reported regarding the EENT system. Neuro: Level of Consciousness is awake, alert, obeys commands, Oriented to person, place. Cardiovascular: Patient's skin is warm and dry. Respiratory: Airway is patent Respiratory effort is even, unlabored. GI: No signs and/or symptoms were reported involving the gastrointestinal system. : Parent/caregiver report the patient having blood in urinary catheter. Derm: No signs and/or symptoms reported regarding the dermatologic system. Musculoskeletal: No signs and/or symptoms reported regarding the musculoskeletal system. Historical: - Allergies: 19:32 Augmentin; cp4 19:32 diltasone; cp4 19:32 Lipitor; cp4 19:32 Plavix; cp4 19:32 Pravachol; cp4 19:32 Prednisone; cp4 19:32 Proscar; cp4 19:32 Spiriva with HandiHaler; cp4 19:32 Toprol XL; cp4 - Home Meds: 19:32 Acidophilus Oral daily [Active]; albuterol sulfate 2.5 mg /3 mL (0.083 %) Inhl Solution cp4 for Nebulization every 6 hours [Active]; aspirin 81 mg Oral tablet daily [Active]; B12 Active 1 Oral tablet nightly [Active]; budesonide 0.5 mg/2 mL inhalation Suspension for Nebulization every 12 hours [Active]; donepezil 10 mg Oral tablet twice a day [Active]; finasteride 5 mg Oral tablet nightly [Active]; meclizine 12.5 mg Oral tablet as needed [Active]; MegaRed [place]-3 Krill Oil oral daily [Active]; memantine 10 mg Oral tablet 2 times per day [Active]; montelukast 10 mg Oral tablet daily [Active]; omeprazole 40 mg Oral capsule daily [Active]; ondansetron HCl 4 mg Oral tablet as needed [Active]; potassium chloride 20 mEq Oral tablet 2 times per day [Active]; PreserVision AREDS 2 Oral tablet 2 times per day [Active]; simvastatin 40 mg Oral tablet nightly [Active]; topiramate 25 mg Oral capsule daily [Active]; valsartan 40 mg Oral tablet daily [Active]; Vitamin D3 125 mcg (5 Oral tablet daily [Active]; - PMHx: 19:32 Alzheimer's disease; BPH; depressive disorder; Gastric Reflux; Hyperlipidemia; cp4 Hypertension; Migraine; - PSHx: 19:32 Carotid endarterectomy; Carpal Tunnel - Right Hand; Coronary Angioplasty; Coronary cp4 artery bypass graft; Stented artery; - Immunization history:: Adult Immunizations up to date. - Infectious Disease History:: Denies. - Social history:: Smoking status: Patient denies any tobacco usage or history of. Screenin:37 [facility] ED Fall Risk Assessment (Adult) History of falling in the last 3 months, cp4 including since admission No falls in past 3 months (0 pts) Confusion or Disorientation Yes (5 pts) Intoxicated or Sedated No (0 pts) Impaired Gait Yes (1 pt) Mobility Assist Device Used Yes (1 pt) Altered Elimination No (0 pt) Score/Fall Risk Level 3 or more points = High Risk Oriented to surroundings, Maintained a safe environment, Assessed \T\ reinforced patient's understanding of fall precautions, Hourly rounding (assess needs \T\ fall precautionary measures) done, Implemented a Fall Risk Plan of Care, Apply high fall risk patient identification: yellow non skid footwear/ fall signage. Abuse screen: Denies threats or abuse. Denies injuries from another. Nutritional screening: No deficits noted. Tuberculosis screening: No symptoms or risk factors identified. Assessment: 19:37 Reassessment: No changes from previously documented assessment. cp4 21:00 Reassessment: Patient appears in no apparent distress at this time. Patient and/or cp4 family updated on plan of care and expected duration. Pain level reassessed. Patient is alert, oriented x 3, equal unlabored respirations, skin warm/dry/pink. General:. 22:00 Reassessment: Patient appears in no apparent distress at this time. Patient and/or cp4 family updated on plan of care and expected duration. Pain level reassessed. Patient is alert, oriented x 3, equal unlabored respirations, skin warm/dry/pink. 23:00 Reassessment: Patient appears in no apparent distress at this time. Patient and/or cp4 family updated on plan of care and expected duration. Pain level reassessed. Patient is alert, oriented x 3, equal unlabored respirations, skin warm/dry/pink. 05/06 00:00 Reassessment: Patient appears in no apparent distress at this time. Patient and/or cp4 family updated on plan of care and expected duration. Pain level reassessed. Patient is alert, oriented x 3, equal unlabored respirations, skin warm/dry/pink. 01:00 Reassessment: Patient appears in no apparent distress at this time. Patient and/or cp4 family updated on plan of care and expected duration. Pain level reassessed. Patient is alert, oriented x 3, equal unlabored respirations, skin warm/dry/pink. Vital Signs: 05/05 19:30 BP 139 / 118; Pulse 81; Resp 16; Temp 98.1; Pulse Ox 100% ; Weight 79.5 kg; Height 6 cp4 ft. 2 in. ; Pain 0/10; 19:45 BP 104 / 92; Pulse 77; Resp 16; Pulse Ox 98% ; cp4 21:09 BP 104 / 52; Pulse 78; Resp 16; Pulse Ox 98% ; cp4 22:00 BP 104 / 52; Pulse 76; Resp 18; Pulse Ox 100% ; cp4 23:00 BP 97 / 47; Pulse 78; Resp 18; Pulse Ox 100% ; cp4 05/06 00:00 BP 111 / 48; Pulse 80; Resp 18; Pulse Ox 100% ; cp4 05/05 19:30 Body Mass Index 22.50 (79.50 kg, 187.96 cm) cp4 05/05 19:30 Pain Scale: Adult cp4 ED Course: 05/05 19:07 Patient arrived in ED. rv1 19:11 Concha Finley PA-C is PHCP. sb4 19:11 Ammon Pacheco MD is Attending Physician. sb4 19:14 Ammon Pacheco MD is Attending Physician. ec2 19:29 Rayna Hernandez is Primary Nurse. cp4 19:32 Triage completed. cp4 19:32 Arm band placed on right wrist. Patient placed in an exam room, on a stretcher. cp4 19:37 Bed in low position. Call light in reach. Side rails up X2. cp4 19:37 No provider procedures requiring assistance completed. Maintain EMS IV. Dressing cp4 intact. Good blood return noted. Site clean \T\ dry. Gauge \T\ site: 18 G LFA, 18G RFA. Flushed with 10 mL NS. 20:35 CT Head Brain wo Cont In Process Unspecified. EDMS 20:35 CT Abd/Pelvis - Without Contrast In Process Unspecified. EDMS 20:38 Urine Culture Sent. oe 20:38 Urine Microscopic Only Sent. oe 20:40 Attending Physician role handed off by Ammon Pacheco MD sp3 20:40 Esme Dixon MD is Attending Physician. sp3 21:01 Jacky Murphy MD is Hospitalizing Provider. sp3 05/06 01:31 Provided Education on: admission. cp4 01:31 Patient admitted, IV remains in place. cp4 Administered Medications: 05/05 20:18 Drug: NS 0.9% IV 1000 ml IV at 1000 ml once; to be given as a bolus over 60 minutes cp4 Route: IV; Rate: 1000 ml; Site: right forearm; 05/06 00:49 Follow up: IV Status: Completed infusion cp4 05/05 20:56 Drug: Rocephin IV 1 grams IV at calculated rate once; Given slow IV push per pharmacy cp4 instructions Route: IV; Rate: calculated rate; Site: right forearm; 21:00 Follow up: IV Status: Completed infusion cp4 Medication: 19:37 VIS not applicable for this client. cp4 Outcome: 21:01 Decision to Hospitalize by Provider. sp3 05/06 01:31 Admitted to Med/surg accompanied by nurse, via stretcher, room 1, with chart, Report cp4 called to Mesha Condition: stable Instructed on the need for admit, 01:32 Patient left the ED. cp4 Signatures: Dispatcher [employer] EDMS Baldomero Acosta Setul, MD MD sp3 Concha Finley, PA-C PA-C sb4 Aicha Prescott rvAmmon Wade MD MD ec2 Rayna Hernandez cp4
--- NOTE | 2024-05-05 21:02 | EDPHYS ---
Physician Documentation [facility] Name: Jocelyn Ernst Age: 83 yrs Sex: Male : 1940 Arrival Date: 05/05/2024 Time: 19:03 Bed 7 Private MD: ED Physician Esme Dixon HPI: 05/05 19:46 This 83 yrs old Male presents to ER via EMS with complaints of Blood In ec2 Catheter. 19:46 Patient with history of dementia arrives today for evaluation of hematuria. Patient ec2 with indwelling Rodriguez catheter that was placed this morning, family reports that this was a traumatic insertion. No falls injuries or trauma. Patient also had a lightheaded episode as well.. Historical: - Allergies: 19:32 Augmentin; cp4 19:32 diltasone; cp4 19:32 Lipitor; cp4 19:32 Plavix; cp4 19:32 Pravachol; cp4 19:32 Prednisone; cp4 19:32 Proscar; cp4 19:32 Spiriva with HandiHaler; cp4 19:32 Toprol XL; cp4 - Home Meds: 19:32 Acidophilus Oral daily [Active]; albuterol sulfate 2.5 mg /3 mL (0.083 %) Inhl Solution cp4 for Nebulization every 6 hours [Active]; aspirin 81 mg Oral tablet daily [Active]; B12 Active 1 Oral tablet nightly [Active]; budesonide 0.5 mg/2 mL inhalation Suspension for Nebulization every 12 hours [Active]; donepezil 10 mg Oral tablet twice a day [Active]; finasteride 5 mg Oral tablet nightly [Active]; meclizine 12.5 mg Oral tablet as needed [Active]; MegaRed [place]-3 Krill Oil oral daily [Active]; memantine 10 mg Oral tablet 2 times per day [Active]; montelukast 10 mg Oral tablet daily [Active]; omeprazole 40 mg Oral capsule daily [Active]; ondansetron HCl 4 mg Oral tablet as needed [Active]; potassium chloride 20 mEq Oral tablet 2 times per day [Active]; PreserVision AREDS 2 Oral tablet 2 times per day [Active]; simvastatin 40 mg Oral tablet nightly [Active]; topiramate 25 mg Oral capsule daily [Active]; valsartan 40 mg Oral tablet daily [Active]; Vitamin D3 125 mcg (5 Oral tablet daily [Active]; - PMHx: 19:32 Alzheimer's disease; BPH; depressive disorder; Gastric Reflux; Hyperlipidemia; cp4 Hypertension; Migraine; - PSHx: 19:32 Carotid endarterectomy; Carpal Tunnel - Right Hand; Coronary Angioplasty; Coronary cp4 artery bypass graft; Stented artery; - Immunization history:: Adult Immunizations up to date. - Infectious Disease History:: Denies. - Social history:: Smoking status: Patient denies any tobacco usage or history of. ROS: 19:46 Constitutional: as per hpi ec2 Exam: 19:46 Constitutional: GEN: NAD Head: atraumatic Eyes: EOMI Ears: External ears are ec2 normal. CV: regular rate LUNGS: no respiratory distress ABD: non-distended, soft, nontender, guarding, not rigid SKIN: no evidence of rashes MSK: no evidence of trauma Vital Signs: 19:30 BP 139 / 118; Pulse 81; Resp 16; Temp 98.1; Pulse Ox 100% ; Weight 79.5 kg; Height 6 cp4 ft. 2 in. ; Pain 0/10; 19:45 BP 104 / 92; Pulse 77; Resp 16; Pulse Ox 98% ; cp4 21:09 BP 104 / 52; Pulse 78; Resp 16; Pulse Ox 98% ; cp4 22:00 BP 104 / 52; Pulse 76; Resp 18; Pulse Ox 100% ; cp4 23:00 BP 97 / 47; Pulse 78; Resp 18; Pulse Ox 100% ; cp4 05/06 00:00 BP 111 / 48; Pulse 80; Resp 18; Pulse Ox 100% ; cp4 05/05 19:30 Body Mass Index 22.50 (79.50 kg, 187.96 cm) cp4 05/05 19:30 Pain Scale: Adult cp4 MDM: 05/05 19:11 Medical Screening Exam initiated sb4 19:46 Data reviewed: vital signs, nurses notes. ED course: Patient arrives today for ec2 lightheadedness as well as hematuria. Examination yields nontoxic dividual's otherwise in no acute distress. Will obtain lab work to evaluate for electrolyte disturbances, anemia, renal dysfunction. Rodriguez catheter is clearly with blood present, large clot extricated on flushing the catheter without issue. Suspect this is all sequela from patient's traumatic insertion earlier today.. 20:01 ED course: Further discussion with daughter, patient has been having issues with ec2 urinary tract infection, will add on CT abdomen pelvis, empirically treat with antibiotics as well.. 21:00 ED course: Patient signed out to me by Dr. Pacheco. Patient is an 83-year-old male with sp3 history of Alzheimer's, hypertension and other PMH above who had a traumatic Rodriguez insertion and now has pyelonephritis and emphysematous cystitis. Rocephin already given. Patient will be admitted to hospital medicine for continued monitoring and care.. 05/05 19:23 Order name: CBC with Diff; Complete Time: 20:40 ec2 05/05 19:23 Order name: BMP; Complete Time: 20:00 ec2 05/05 19:47 Order name: CBC Smear Scan; Complete Time: 20:40 EDMS 05/05 19:54 Order name: Urine Culture ec2 05/05 20:18 Order name: Urine Microscopic Only; Complete Time: 20:47 EDMS 05/05 23:10 Order name: Urinalysis w/ reflexes EDMS 05/05 23:10 Order name: CBC with Automated Diff EDMS 05/05 23:10 Order name: CBC with Automated Diff EDMS 05/05 23:10 Order name: Comprehensive Metabolic Panel EDMS 05/05 23:10 Order name: Comprehensive Metabolic Panel EDMS 05/05 19:23 Order name: CT Head Brain wo Cont; Complete Time: 20:58 ec2 05/05 19:54 Order name: CT Abd/Pelvis - Without Contrast ec2 05/05 19:14 Order name: Misc. Order: irrigate catheter; Complete Time: 19:21 ec2 Administered Medications: 20:18 Drug: NS 0.9% IV 1000 ml IV at 1000 ml once; to be given as a bolus over 60 minutes cp4 Route: IV; Rate: 1000 ml; Site: right forearm; 05/06 00:49 Follow up: IV Status: Completed infusion cp4 05/05 20:56 Drug: Rocephin IV 1 grams IV at calculated rate once; Given slow IV push per pharmacy cp4 instructions Route: IV; Rate: calculated rate; Site: right forearm; 21:00 Follow up: IV Status: Completed infusion cp4 Disposition Summary: 05/05/24 21:01 Hospitalization Ordered Notes: Hospitalization Status: Inpatient Admission sp3 Provider: Jacky Murphy sp3 Condition: Stable sp3 Problem: new sp3 Symptoms: have worsened sp3 Bed/Room Type: Standard sp3 Location: Intensive Care Unit(05/05/24 23:39) ha1 Room Assignment: 1-(05/05/24 23:39) ha1 Diagnosis - Pyelonephritis sp3 Discharge Instructions: - Discharge Summary Sheet ec2 - Hematuria, Adult ec2 Forms: - Medication Reconciliation Form sp3 - SBAR form sp3 - Leadership Thank You Letter sp3 Signatures: Dispatcher [employer] EDMS Esme Dixon MD MD sp3 Milly Sands RN RN ha1 Concha Finley PA-C PA-C sb4 Ammon Pacheco MD MD ec2 Rayna Hernandez cp4 Corrections: (The following items were deleted from the chart) 20:18 19:55 Urinalysis W/Microscopic+U.LAB.BRZ ordered. EDOH EDOH 23:39 21:01 Telemetry/MedSurg (Inpatient) sp3 ha1 23:39 21:01 sp3 ha1
--- NOTE | 2024-05-05 21:08 | P.HP ---
Certification for Inpatient Patient admitted to: Inpatient With expected LOS: >2 Midnights Practitioner: I am a practitioner with admitting privileges, knowledge of patient current condition, hospital course, and medical plan of care. Services: Services provided to patient in accordance with Admission requirements found in Title 42 Section 412.3 of the Code of Federal Regulations Patient History Date of Service: 05/05/24 Reason for admission: Pyelonephritis History of Present Illness: 83 yrs old Male with past medical history of dementia, BPH, depression, GERD, hypertension, hyperlipidemia, migraine, history of carotid endarterectomy, CAD status post CABG and stents, was brought to ER with hematuria. Patient is a poor historian hence most of the history is obtained from the chart review and also talking to the family member at the bedside. He had a Rodriguez catheter placed this morning and following which he had blood in the urine and was brought to ER. Patient also complains of abdominal pain. Denies any chest pain or shortness of breath. Patient had a subjective fever Patient was assessed in the ER and is admitted for further management of possibl e pyelonephritis Allergies amoxicillin [From Augmentin] Allergy (Verified 03/24/24 13:55) facial swelling atorvastatin [From Lipitor] Allergy (Verified 03/24/24 13:55) muscle cramps clavulanic acid [From Augmentin] Allergy (Verified 03/24/24 13:55) facial swelling clopidogrel [From Plavix] Allergy (Verified 03/24/24 13:55) Unknown metoprolol [From Toprol XL] Allergy (Verified 03/24/24 13:55) Unknown prednisone Allergy (Verified 03/24/24 13:55) jittery/heart racing Home medications list reviewed: Yes Home Medications: Albuterol Sulfate [Albuterol Sulfate 0.083% Neb Soln] 2.5 mg IH Q6HP PRN 09/11/23 Aspirin Chewable [Aspirin Chewable*] 81 mg PO DAILY 09/11/23 Budesonide [Pulmicort] 0.5 mg IH Q12HP PRN 09/11/23 Cholecalciferol (Vitamin D3) [Vitamin D 5,000 Iu Cap] 5,000 unit PO DAILY 09/11/23 Cyanocobalamin [Vitamin B-12] 1,000 mcg PO BEDTIME 09/11/23 Donepezil HCl 10 mg PO BID 09/11/23 Finasteride [Proscar] 5 mg PO BEDTIME 09/11/23 Krill Oil/[place]-3/Dha/Epa [[place]-3 Krill Oil Softgel] 1 each PO DAILY 09/11/23 Lactobacillus Acidophilus [Acidophilus Probiotic] 1 each PO DAILY 09/11/23 Meclizine HCl [Antivert] 1 - 2 tab PO TID PRN 09/11/23 Memantine HCl 10 mg PO BID 09/11/23 Montelukast Sodium [Singulair] 10 mg PO DAILY 09/11/23 Mv-Min/FA/Vit K/Lutein/Zeaxant [Preservision Areds 2 Plus Mv] 1 each PO BID 09/11/23 Omeprazole [Prilosec] 40 mg PO DAILY 09/11/23 Ondansetron HCl 4 mg PO Q6HP PRN 09/11/23 Potassium Chloride [Klor-Con] 20 meq PO BID 09/11/23 Simvastatin 40 mg PO BEDTIME 09/11/23 Topiramate [Topiramate ER] 25 mg PO DAILY 09/11/23 Valsartan [Diovan] 40 mg PO DAILY 09/11/23 Cefpodoxime Proxetil [Vantin] 200 mg PO BID 5 Days #10 tab 09/21/23 - Past Medical/Surgical History Diabetic: No Past Medical History: Reviewed- Non-Contributory -: Chronic CHF -: CAD with prior CABG -: Hypertension -: Hyperlipidemia -: GERD -: Hypothyroidism -: BPH -: Dementia -: Carotid stenosis -: T12 and L1 compression fracture -: Chronic Rodriguez Past Surgical History: Reviewed- Non-Contributory -: Cardiac stent -: CABG x2 vessels -: Carpal tunnel Psychosocial/ Personal History: Patient is - Family History Father -: Stroke Mother -: Lung disease - Social History Smoking Status: Never smoker Alcohol use: Yes CD- Drugs: No Caffeine use: Yes Review of Systems 10-point ROS is otherwise unremarkable Physical Examination - Vital Signs Temperature: 98.2 F Blood Pressure: 138/70 Pulse: 82 Respirations: 18 Pulse Ox (%): 94 - Physical Exam General: Alert, Mild distress HEENT: Atraumatic, Normocephalic Neck: Supple, 2+ carotid pulse no bruit Respiratory: Clear to auscultation bilaterally, Normal air movement Cardiovascular: Regular rate/rhythm, Normal S1 S2 Capillary refill: <2 Seconds Gastrointestinal: W/out hepatosplenomegaly, Tenderness Musculoskeletal: No clubbing, No swelling Integumentary: No rashes Neurological: Normal speech, Cranial nerves 3-12 intact Lymphatics: No axilla or inguinal lymphadenopathy - Studies Laboratory Data (last 24 hrs) 05/05/24 05/05/24 19:36 19:36 WBC 14.70 H Hgb 12.1 L Hct 38.6 L Plt Count 116 L Sodium 139 Potassium 3.8 BUN 25 H Creatinine 1.25 Glucose 91 Assessment and Plan - Plan Hematuria Started on IV IV hydration Will get a bladder scan Monitor H&H closely Will consult urology if needed 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
[2024-05-05] MEDS ORDERED: ONDANSETRON 4 MG/2 ML VIAL IV PRN (23:06)
[2024-05-06 01:56] VITALS: BMI 22.5
[2024-05-06] MEDS: NA CHLORIDE 0.9% 1,000 ML IV SCH (03:02)
[2024-05-06 06:11] LABS: Absolute Lymphocytes (CBC) 0.8 K/uL (0.7-4.9); Absolute Neutrophil 20.8 K/uL (1.8-8.0); Basophils % 0.2 % (0-1.3); Eosinophils % 0.1 % (0-4.4); Hematocrit 32.2 % (39.6-49.0); Hemoglobin 10.4 g/dL (13.6-17.9); Lymphocytes % 3.4 % (15.3-44.8); MCHC 32.4 g/dL (32.0-36.0); MCV 92.7 fL (80-100); MPV 9.1 fL (7.6-11.3); Monocytes % 4.5 % (3.3-12.3); Neutrophils % 91.8 % (41.7-73.7); Nucleated Red Blood Cells % 0.1 % (0-0); Platelets 115 thou/uL (152-406); RBC Red Blood Cell Count 3.47 M/uL (4.33-5.43); Red Cell Distribution Width 19.7 % (12.1-15.2)
[2024-05-06 06:41] LABS: ALT/SGPT < 14 U/L (16-61); AST/SGOT 28 U/L (15-37); Albumin 2.6 g/dL (3.4-5.0); Albumin/Globulin Ratio 0.8 (1.1-1.8); Alkaline Phosphatase 90 U/L (45-117); BUN Blood Urea Nitrogen 28 mg/dL (7-18); Bicarbonate 24 mEq/L (21-32); Bilirubin Total 0.6 mg/dL (0.2-1.0); Globulin 3.3 g/dL (2.3-3.5); Glomerular Filtration Rate 58 ml/min (=/>90); Glucose Level 80 mg/dL (74-106); Magnesium 1.7 mg/dL (1.6-2.4); Protein, Total 5.9 g/dL (6.4-8.2); Sodium Level 139 mEq/L (136-145)
[2024-05-06 06:53] LABS: Band Neutrophils 4 % (0-1); Differential Total Cells Count 100; Lymphocytes 2 % (15-42); Monocytes 8 % (0-10); Segmented Neutrophils 86 % (40-80); Toxic Granulation 1+
[2024-05-06 06:54] LABS: Blood Morphology Comment NOTED (NOT SEEN); Ovalocytes 1+; Platelet Estimate DECR; Platelets, Giant PRESENT
[2024-05-06] MEDS: ACETAMINOPHEN 325 MG TABLET PO PRN (09:44)
[2024-05-06] MEDS: CEFEPIME 2 GM in NA CHLORIDE 0.9% 100 ML IV SCH (09:46)
--- NOTE | 2024-05-06 12:54 | P.PN ---
Date of Service: 05/06/24 Subjective: Resting comfortably in bed. Blood pressures are soft. His says he has improved since yesterday. Denies fevers and chills. Review of Systems 10-point ROS is otherwise unremarkable Physical Examination - Vital Signs Temperature: 98.2 F Blood Pressure: 138/70 Pulse: 82 Respirations: 18 Pulse Ox (%): 94 - Physical Exam General: Alert, Mild distress HEENT: Atraumatic, Normocephalic Neck: Supple, 2+ carotid pulse no bruit Respiratory: Clear to auscultation bilaterally, Normal air movement Cardiovascular: Regular rate/rhythm, Normal S1 S2 Capillary refill: <2 Seconds Gastrointestinal: W/out hepatosplenomegaly, Tenderness Musculoskeletal: No clubbing, No swelling Integumentary: No rashes Neurological: Normal speech, Cranial nerves 3-12 intact Lymphatics: No axilla or inguinal lymphadenopathy - Studies Laboratory Data (last 24 hrs) 05/05/24 05/05/24 19:36 19:36 WBC 14.70 H Hgb 12.1 L Hct 38.6 L Plt Count 116 L Sodium 139 Potassium 3.8 BUN 25 H Creatinine 1.25 Glucose 91 Assessment and Plan Sepsis Hypotension Meeting SIRS + qSOFA criteria Increased respiratory rate with hypotension Trend lactic acid Antibiotic switched to cefepime. Discussed with pharmacy regarding sensitivity Emphysematous cystitis Hematuria Started on IV IV hydration Will get a bladder scan Monitor H&H closely Will consult urology if needed Ceftriaxone switched to cefepime IV. Discussed with pharmacy Urine culture pending Change antibiotic as per sensitivity Hyperlipidemia Continue statin GI/DVT prophylaxis Advanced directive full code DVT prophylaxis with SCDs Discharge Plan: Home Plan to discharge in: 48 Hours - Advance Directives Does patient have a Living Will: No Does patient have a Durable POA for Healthcare: No - Code Status/Comfort Care Code Status: Full Code Time Spent Managing Pts Care (In Minutes): 48
[2024-05-06] MEDS ORDERED: BUDESONIDE 0.5 MG/2 ML NEB IH PRN (14:04)
[2024-05-06] MEDS ORDERED: SODIUM CHLORIDE IRRIG SOLUTION 3,000 ML BAG IRR SCH (15:00)
[2024-05-06] MEDS: Ringers Lactate 1,000 ML IV SCH (15:26)
[2024-05-06] MEDS: LIDOCAINE JELLY 2% 5 ML SYRINGE TOP ONE (15:33)
[2024-05-06] MEDS: PROMETHAZINE INJ 25 MG/ML AMP IV ONE (15:45)
[2024-05-06 16:35] LABS: Hemoglobin 10.6 g/dL (13.6-17.9)
--- NOTE | 2024-05-06 18:25 | P.CNS ---
Date of Consult: 05/06/24 Reason for Consult: Catheter malposition and traumatic hematuria Chief Complaint: Pyelonephritis History of Present Illness: 83-year-old gentleman with BPH, hypertension, GERD, hyperlipidemia, depression, dementia, history of CVA, CAD s/p CABG with stents who was brought into the emergency department with gross hematuria following traumatic catheter placement. His catheter is being exchanged routinely by [facility], and the family describes a new nurse coming by to exchange his catheter on this most recent occasion. His daughter specifically noted that the nurse failed to pass the catheter until it reached the hub, and when she blew up the balloon, the patient screamed in pain. Thereafter, the catheter failed to drain, and there was gross bleeding. They brought him into the emergency department where he was admitted. CT scan was performed as below revealing the catheter within the penile urethra, and he was admitted to the ICU. There, the catheter was exchanged, but the patient persisted with significant gross hematuria and so CBI was initiated by the ICU team. It was at this point, urology, was consulted. Of note, the family expresses the patient is having had some chills associated with this traumatic catheterization event. Apparently he also had subjective fever as recorded by the emergency department. He was admitted for further management of suspected pyelonephritis. 05/05/2024 CT abdomen and pelvis without contrast findings: No hydronephrosis. No pathologic lymphadenopathy. Bladder wall thickening with stranding. 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 Past medical history and past surgical history as above + chronic CHF, carotid stenosis, T12 and L1 compression fracture, carpal tunnel surgery Allergies: Amoxicillin -facial swelling, atorvastatin -intolerance/muscle cramps, clopidogrel, metoprolol, prednisone -jittery/heart racing Family history: Father CVA. Mother lung disease Social history: Never smoker Examination: Tachycardic Slightly uncomfortable appearing but in no acute distress Seated slightly reclined in the hospital bed with a tray of food in front of him that he was not really eating No dyspnea or sign of respiratory distress Awake and alert 20 [place] three-way urethral Rodriguez catheter in place with red urine, connected to CBI. Phallus uncircumcised with orthotopic meatus. Urethral Rodriguez catheter exchange and bladder irrigation procedure note: I asked the nurse to remove the indwelling urethral catheter and then I prepped his genitalia with Betadine and draped in standard fashion. Lidocaine Uro-Jet was applied intraurethrally for local anesthesia. I then passed a 24 [place] three-way Rodriguez catheter into his bladder with relative ease until resistance was met due to his bladder being slightly contracted associated with spasms. Drainage of light pink urine/slightly tea colored urine was achieved; so I filled the balloon with 10 cc of sterile water. I then utilized a 60 cc catheter tip syringe and sterile saline and irrigated his bladder removing's very small amount of old clot, and the urine did rapidly clear after a couple of irrigations. I thus reconnected the catheter to its drainage bag and secured it to his right upper thigh using a StatLock. He tolerated the procedure well and without significant complication noted. Assessment and recommendation: 83-year-old gentleman with BPH, hypertension, GERD, hyperlipidemia, depression, dementia, history of CVA, CAD s/p CABG with stents with chronic indwelling Rodriguez x 1 year, recently exchanged by [facility] with catheter balloon inflated in the "penile" urethra per CT resulting in urethral trauma and gross urethral bleeding with emphysematous cystitis, now p 24 [place] three-way catheter placed with clear urine. -Given the emphysematous cystitis and suspected sepsis, aggressive antimicrobial therapy will be required -Maintain catheter decompression, but CBI not needed at this time as no ongoing gross hematuria -Follow-up in my office on discharge for cystoscopy and catheter downsizing/exchange within the next 4 to 6 weeks Allergies amoxicillin [From Augmentin] Allergy (Verified 03/24/24 13:55) facial swelling atorvastatin [From Lipitor] Allergy (Verified 03/24/24 13:55) muscle cramps clavulanic acid [From Augmentin] Allergy (Verified 03/24/24 13:55) facial swelling clopidogrel [From Plavix] Allergy (Verified 03/24/24 13:55) Unknown metoprolol [From Toprol XL] Allergy (Verified 03/24/24 13:55) Unknown prednisone Allergy (Verified 03/24/24 13:55) jittery/heart racing Home medications list reviewed: Yes Home Medications: Albuterol Sulfate [Albuterol Sulfate 0.083% Neb Soln] 2.5 mg IH Q6HP PRN 09/11/23 Aspirin Chewable [Aspirin Chewable*] 81 mg PO DAILY 09/11/23 Budesonide [Pulmicort] 0.5 mg IH Q12HP PRN 09/11/23 Cholecalciferol (Vitamin D3) [Vitamin D 5,000 Iu Cap] 5,000 unit PO DAILY 09/11/23 Cyanocobalamin [Vitamin B-12] 1,000 mcg PO BEDTIME 09/11/23 Donepezil HCl 10 mg PO BID 09/11/23 Finasteride [Proscar] 5 mg PO BEDTIME 09/11/23 Krill Oil/[place]-3/Dha/Epa [[place]-3 Krill Oil Softgel] 1 each PO DAILY 09/11/23 Lactobacillus Acidophilus [Acidophilus Probiotic] 1 each PO DAILY 09/11/23 Meclizine HCl [Antivert] 1 - 2 tab PO TID PRN 09/11/23 Memantine HCl 10 mg PO BID 09/11/23 Montelukast Sodium [Singulair] 10 mg PO DAILY 09/11/23 Mv-Min/FA/Vit K/Lutein/Zeaxant [Preservision Areds 2 Plus Mv] 1 each PO BID 09/11/23 Omeprazole [Prilosec] 40 mg PO DAILY 09/11/23 Ondansetron HCl 4 mg PO Q6HP PRN 09/11/23 Potassium Chloride [Klor-Con] 20 meq PO BID 09/11/23 Simvastatin 40 mg PO BEDTIME 09/11/23 Topiramate [Topiramate ER] 25 mg PO DAILY 09/11/23 Valsartan [Diovan] 40 mg PO DAILY 09/11/23 - Past Medical/Surgical History Diabetic: No -: Chronic CHF -: CAD with prior CABG -: Hypertension -: Hyperlipidemia -: GERD -: Hypothyroidism -: BPH -: Dementia -: Carotid stenosis -: T12 and L1 compression fracture -: Chronic Rodriguez -: Cardiac stent -: CABG x2 vessels -: Carpal tunnel Psychosocial/ Personal History: Patient is - Family History Father Medical History: Stroke Mother Medical History: Lung disease - Social History Smoking Status: Unknown if ever smoked Alcohol use: Yes CD- Drugs: No Caffeine use: Yes Place of Residence: Home Physical Examination Temp Pulse Resp BP Pulse Ox 98.2 F 111 H 27 H 138/58 L 95 05/06/24 15:57 05/06/24 15:57 05/06/24 15:57 05/06/24 15:57 05/06/24 15:57 Laboratory Data (last 24 hrs) 05/05/24 05/05/24 19:36 19:36 WBC 14.70 H Hgb 12.1 L Hct 38.6 L Plt Count 116 L Sodium 139 Potassium 3.8 BUN 25 H Creatinine 1.25 Glucose 91 - Problems (1) Emphysematous cystitis Current Visit: Yes Status: Acute (2) Suspected sepsis Current Visit: Yes Status: Acute Conclusions/Impression: see A&P Critical Care: Yes Time Spent Managing Pts care (In Minutes): 60
[2024-05-06] MEDS: FINASTERIDE 5 MG TAB PO SCH (20:23)
[2024-05-06] MEDS: DONEPEZIL HCL 5 MG TAB PO SCH (20:23)
[2024-05-06] MEDS: MEMANTINE HCL 10 MG TABLET PO SCH (20:24)
[2024-05-06] MEDS: HOME MED 1 EA UNK (Simvastatin [Simvastatin] 40 MG Tablet) PO SCH (21:00)
--- NOTE | 2024-05-06 22:33 | RAD REPORT ---
EXAMINATION: US RETROPERITONEUM CLINICAL INDICATION: [facility] MAIN Fluid rentention and bloody urine TECHNIQUE: Real-time ultrasonography of the abdomen was performed. COMPARISON: No prior exam. FINDINGS: Right shadowing limits evaluation. RIGHT KIDNEY: Right renal length measurement: 9.6 cm. Normal in echogenicity and size. No calculus, s olid mass or hydronephrosis. LEFT KIDNEY: Left renal length measurement: 9.7 cm. Normal in echogenicity and size. No calculus, avril id mass or hydronephrosis. URINARY BLADDER: Decompressed with Rodriguez catheter in place. ADDITIONAL FINDINGS: None. IMPRESSION: No acute or significant abnormalities.
[2024-05-07 00:21] LABS: Hematocrit 30.8 % (39.6-49.0); Hemoglobin 9.7 g/dL (13.6-17.9)
[2024-05-07 05:51] LABS: Absolute Basophils 0.1 K/uL (0-0.5); Absolute Lymphocytes (CBC) 1.4 K/uL (0.7-4.9); Absolute Monocytes 0.9 K/uL (0.1-1.3); Absolute Neutrophil 13.2 K/uL (1.8-8.0); Basophils % 0.3 % (0-1.3); Eosinophils % 0.1 % (0-4.4); Hematocrit 30.7 % (39.6-49.0); Hemoglobin 9.8 g/dL (13.6-17.9); Lymphocytes % 8.7 % (15.3-44.8); MCHC 31.9 g/dL (32.0-36.0); MPV 9.1 fL (7.6-11.3); Neutrophils % 84.9 % (41.7-73.7); Platelets 108 thou/uL (152-406); RBC Red Blood Cell Count 3.27 M/uL (4.33-5.43); Red Cell Distribution Width 19.9 % (12.1-15.2)
[2024-05-07 06:00] LABS: Anion Gap 10.3 mEq/L (5.0-15.0); Magnesium 1.9 mg/dL (1.6-2.4); Phosphorus 2.6 mg/dL (2.5-4.9); Potassium 4.3 mEq/L (3.5-5.1)
[2024-05-07] MEDS: MONTELUKAST 10 MG TAB PO SCH (08:28)
--- NOTE | 2024-05-07 13:42 | P.PN ---
Date of Service: 05/07/24 Subjective: Doing much better today. Blood pressure is normalized. Catheter replaced yesterday by. Family is at bedside. He denies any fevers and chills Review of Systems 10-point ROS is otherwise unremarkable Physical Examination - Vital Signs Temperature: 98.2 F Blood Pressure: 138/70 Pulse: 82 Respirations: 18 Pulse Ox (%): 94 - Physical Exam General: Alert, Mild distress HEENT: Atraumatic, Normocephalic Neck: Supple, 2+ carotid pulse no bruit Respiratory: Clear to auscultation bilaterally, Normal air movement Cardiovascular: Regular rate/rhythm, Normal S1 S2 Capillary refill: <2 Seconds Gastrointestinal: W/out hepatosplenomegaly, Tenderness Musculoskeletal: No clubbing, No swelling Integumentary: No rashes Neurological: Normal speech, Cranial nerves 3-12 intact Lymphatics: No axilla or inguinal lymphadenopathy - Studies Laboratory Data (last 24 hrs) 05/05/24 05/05/24 19:36 19:36 WBC 14.70 H Hgb 12.1 L Hct 38.6 L Plt Count 116 L Sodium 139 Potassium 3.8 BUN 25 H Creatinine 1.25 Glucose 91 Assessment and Plan Sepsis Hypotension Thrombocytopenia Elevated procalcitonin Continue cefepime Urine culture with greater than 100,000 gram-negative rods Meeting SIRS + qSOFA criteria Increased respiratory rate with hypotension Lactic acid within normal limits Stop fluids Emphysematous cystitis Hematuria Started on IV IV hydration Will get a bladder scan Monitor H&H closely Prescient urology Follow-up with urology for cystoscopy and catheter downsize/exchange within the next 4 to 6-week Generalized weakness Physical therapy consult Hyperlipidemia Continue statin Anemia Hemoglobin remained stable Dementia Continue donepezil Continue memantine GI/DVT prophylaxis Advanced directive full code DVT prophylaxis with SCDs Discharge Plan: Home Plan to discharge in: 48 Hours - Advance Directives Does patient have a Living Will: No Does patient have a Durable POA for Healthcare: No - Code Status/Comfort Care Code Status: Full Code Time Spent Managing Pts Care (In Minutes): 48
[2024-05-07 16:22] LABS: Hematocrit 30.4 % (39.6-49.0); Hemoglobin 9.8 g/dL (13.6-17.9)
[2024-05-07 20:12] VITALS: O2SAT 95
[2024-05-07] MEDS: NA CHLORIDE 0.9% 100 ML ONE (20:14)
[2024-05-08 05:37] LABS: Absolute Basophils 0.1 K/uL (0-0.5); Absolute Eosinophils 0.1 K/uL (0-0.5); Absolute Lymphocytes (CBC) 1.3 K/uL (0.7-4.9); Absolute Monocytes 0.8 K/uL (0.1-1.3); Absolute Neutrophil 10.1 K/uL (1.8-8.0); Basophils % 0.7 % (0-1.3); Eosinophils % 0.8 % (0-4.4); Hematocrit 29.5 % (39.6-49.0); Hemoglobin 9.5 g/dL (13.6-17.9); Lymphocytes % 10.4 % (15.3-44.8); MCH 29.8 pg (27.0-35.0); MCHC 32.2 g/dL (32.0-36.0); MCV 92.6 fL (80-100); MPV 9.1 fL (7.6-11.3); Monocytes % 6.3 % (3.3-12.3); Neutrophils % 81.8 % (41.7-73.7); Nucleated Red Blood Cells % 0.2 % (0-0); Platelets 91 thou/uL (152-406); RBC Red Blood Cell Count 3.19 M/uL (4.33-5.43); Red Cell Distribution Width 19.7 % (12.1-15.2)
[2024-05-08 05:41] LABS: Blood Morphology Comment NOT SEEN (NOT SEEN); Platelet Estimate DECR; White Blood Cell Scan OK (OK)
[2024-05-08 05:45] LABS: Anion Gap 8.8 mEq/L (5.0-15.0); Magnesium 1.9 mg/dL (1.6-2.4); Phosphorus 1.9 mg/dL (2.5-4.9); Potassium 3.8 mEq/L (3.5-5.1)
[2024-05-08] MEDS: POTASSIUM PHOS IN 0.9 % NACL 15 MMOL/250 ML BAG IV ONE (06:30)
[2024-05-08] MEDS ORDERED: DOCUSATE NA/SENNA CONC 1 TAB PO PRN (11:31)
--- NOTE | 2024-05-08 14:09 | P.PN ---
Date of Service: 05/08/24 Subjective: Continues to improve. States he does not like the food here. We discussed trying to get out of bed today and working with physical therapy. He denies any fevers and chills. No associated symptoms. He rates his pain at a 4 out of 10 today. Review of Systems 10-point ROS is otherwise unremarkable Physical Examination - Vital Signs Temperature: 98.2 F Blood Pressure: 138/70 Pulse: 82 Respirations: 18 Pulse Ox (%): 94 - Physical Exam General: Alert, Mild distress HEENT: Atraumatic, Normocephalic Neck: Supple, 2+ carotid pulse no bruit Respiratory: Clear to auscultation bilaterally, Normal air movement Cardiovascular: Regular rate/rhythm, Normal S1 S2 Capillary refill: <2 Seconds Gastrointestinal: W/out hepatosplenomegaly, Tenderness Musculoskeletal: No clubbing, No swelling Integumentary: No rashes Neurological: Normal speech, Cranial nerves 3-12 intact Lymphatics: No axilla or inguinal lymphadenopathy - Studies Laboratory Data (last 24 hrs) 05/05/24 05/05/24 19:36 19:36 WBC 14.70 H Hgb 12.1 L Hct 38.6 L Plt Count 116 L Sodium 139 Potassium 3.8 BUN 25 H Creatinine 1.25 Glucose 91 Assessment and Plan Sepsis resolved Hypotension resolved Elevated procalcitonin Continue cefepime Urine culture with greater than 100,000 gram-negative rods Cultures growing E. coli, Klebsiella pneumonia, Enterococcus faecalis Increased respiratory rate with hypotension Lactic acid within normal limits Stop fluids Emphysematous cystitis Hematuria Started on IV IV hydration Will get a bladder scan Monitor H&H closely Prescient urology Follow-up with urology for cystoscopy and catheter downsize/exchange within the next 4 to 6-week Generalized weakness Physical therapy consult Hyperlipidemia Continue statin Anemia Hemoglobin remained stable Dementia Continue donepezil Continue memantine Hypophosphatemia Encourage oral intake Replete phosphorus GI/DVT prophylaxis Advanced directive full code DVT prophylaxis with SCDs Thrombocytopenia Will continue to monitor Not on heparin Discharge Plan: Home Plan to discharge in: 48 Hours - Advance Directives Does patient have a Living Will: No Does patient have a Durable POA for Healthcare: No - Code Status/Comfort Care Code Status: Full Code Time Spent Managing Pts Care (In Minutes): 48
[2024-05-09 07:57] LABS: Absolute Basophils 0.1 K/uL (0-0.5); Absolute Eosinophils 0.1 K/uL (0-0.5); Absolute Lymphocytes (CBC) 1.1 K/uL (0.7-4.9); Absolute Monocytes 0.5 K/uL (0.1-1.3); Absolute Neutrophil 7.5 K/uL (1.8-8.0); Basophils % 0.7 % (0-1.3); Hematocrit 31.9 % (39.6-49.0); Hemoglobin 10.4 g/dL (13.6-17.9); Lymphocytes % 11.5 % (15.3-44.8); MCH 29.9 pg (27.0-35.0); MCHC 32.5 g/dL (32.0-36.0); MPV 8.4 fL (7.6-11.3); Monocytes % 5.8 % (3.3-12.3); Nucleated Red Blood Cells % 0.2 % (0-0); Platelets 118 thou/uL (152-406); RBC Red Blood Cell Count 3.47 M/uL (4.33-5.43)
[2024-05-09 08:20] LABS: Anion Gap 7.5 mEq/L (5.0-15.0); Magnesium 1.7 mg/dL (1.6-2.4); Potassium 3.5 mEq/L (3.5-5.1)
[2024-05-09] MEDS: Magnesium Sulfate 2gm IVPB 2 G/50 ML BAG IV ONE (11:00)
[2024-05-09 12:31] VITALS: BP 118/66; TEMP 98.6
[2024-05-09] MEDS: POTASSIUM CL SA 10 MEQ TAB PO ONE (13:03)
--- NOTE | 2024-05-09 13:37 | P.DS ---
Admission Date: 05/05/24 Discharge Date: 05/09/24 Disposition: ROUTINE DISCHARGE Discharge Condition: GOOD Reason for Admission: Pyelonephritis Brief History of Present Illness: 83 yrs old Male with past medical history of dementia, BPH, depression, GERD, hypertension, hyperlipidemia, migraine, history of carotid endarterectomy, CAD status post CABG and stents, was brought to ER with hematuria. Patient is a poor historian hence most of the history is obtained from the chart review and also talking to the family member at the bedside. He had a Rodriguez catheter placed this morning and following which he had blood in the urine and was brought to ER. Patient also complains of abdominal pain. Denies any chest pain or shortness of breath. Hospital Course: 83 yrs old Male with past medical history of dementia, BPH, depression, GERD, hypertension, hyperlipidemia, migraine, history of carotid endarterectomy, CAD status post CABG and stents, was brought to ER with hematuria secondary to traumatic Rodriguez placement by home health nurse. On admission was on IV fluids, hematuria resolved spontaneously. Urine cultures grew E. coli, Klebsiella pneumonia and Enterococcus faecalis so was on cefepime. WBC on admission was at 15.6 but improved to 9.2 at time of discharge. Aforementioned bacterial were sensitive to Zosyn and ampicillin however patient has a documented Augmentin allergy so discharged on Omnicef. At time of discharge, was afebrile and hemodynamically stable Vital Signs/Physical Exam: Temp Pulse Resp BP Pulse Ox 98.6 F 75 16 118/66 95 05/09/24 12:00 05/09/24 12:00 05/09/24 12:00 05/09/24 12:00 05/09/24 12:00 General: Alert, Oriented x3 HEENT: Atraumatic Neck: Supple Respiratory: Clear to auscultation bilaterally, Normal air movement Cardiovascular: No edema, Normal pulses, Regular rate/rhythm Gastrointestinal: Soft and benign, Non-distended Musculoskeletal: No clubbing, No swelling Neurological: Normal gait Lymphatics: No axilla or inguinal lymphadenopathy Laboratory Data at Discharge: WBC 9.20 thou/uL (4.3-10.9) 05/09/24 07:45 Hgb 10.4 g/dL (13.6-17.9) L D 05/09/24 07:45 Hct 31.9 % (39.6-49.0) L 05/09/24 07:45 Plt Count 118 thou/uL (152-406) L D 05/09/24 07:45 Sodium 141 mEq/L (136-145) 05/09/24 07:45 Potassium 3.5 mEq/L (3.5-5.1) 05/09/24 07:45 BUN 17 mg/dL (7-18) 05/09/24 07:45 Creatinine 0.59 mg/dL (0.70-1.30) L 05/09/24 07:45 Glucose 96 mg/dL (74-106) 05/09/24 07:45 Phosphorus 1.9 mg/dL (2.5-4.9) L 05/08/24 05:15 Magnesium 1.7 mg/dL (1.6-2.4) 05/09/24 07:45 Total Bilirubin 0.6 mg/dL (0.2-1.0) 05/06/24 05:15 AST 28 U/L (15-37) 05/06/24 05:15 ALT < 14 U/L (16-61) L 05/06/24 05:15 Alkaline Phosphatase 90 U/L (45-117) 05/06/24 05:15 Home Medications: Albuterol Sulfate [Albuterol Sulfate 0.083% Neb Soln] 2.5 mg IH Q6HP PRN 09/11/23 Aspirin Chewable [Aspirin Chewable*] 81 mg PO DAILY 09/11/23 Budesonide [Pulmicort] 0.5 mg IH Q12HP PRN 09/11/23 Cholecalciferol (Vitamin D3) [Vitamin D 5,000 IU Cap*] 5,000 unit PO DAILY 09/11/23 Cyanocobalamin [Vitamin B-12*] 1,000 mcg PO BEDTIME 09/11/23 Donepezil HCl 10 mg PO BID 09/11/23 Finasteride [Proscar*] 5 mg PO BEDTIME 09/11/23 Krill Oil/[place]-3/Dha/Epa [[place]-3 Krill Oil Softgel] 1 each PO DAILY 09/11/23 Lactobacillus Acidophilus [Acidophilus Probiotic] 1 each PO DAILY 09/11/23 Meclizine HCl [Antivert*] 1 - 2 tab PO TID PRN 09/11/23 Memantine HCl 10 mg PO BID 09/11/23 Montelukast Sodium [Singulair] 10 mg PO DAILY 09/11/23 Mv-Min/FA/Vit K/Lutein/Zeaxant [Preservision Areds 2 Plus Mv] 1 each PO BID 09/11/23 Omeprazole [Prilosec] 40 mg PO DAILY 09/11/23 Ondansetron HCl 4 mg PO Q6HP PRN 09/11/23 Potassium Chloride [Klor-Con] 20 meq PO BID 09/11/23 Simvastatin 40 mg PO BEDTIME 09/11/23 Topiramate [Topiramate ER] 25 mg PO DAILY 09/11/23 Valsartan [Diovan*] 40 mg PO DAILY 09/11/23 Cefdinir [Omnicef] 300 mg PO BID 5 Days #10 05/09/24 New Medications: Cefdinir [Omnicef] 300 mg PO BID 5 Days #10 Followup: Anabella Felix NP [Primary Care Provider] - 1-2 Weeks
== END 2024-05-09 13:22 | disposition home or self-care (01) | DRG 698 ==
LOC: ER 19:03 → ERHOLD 23:06 → 3RD-ICU 05-06 01:07 → 2ND 05-08 13:07
PROVIDERS: ADMIT Family Medicine; ATTEND Internal Medicine
PROC: 0T9B70Z Drainage of Bladder with Drainage Device, Via Natural or Artificial Opening (ICD-10-PCS; principal; 2024-05-06)
DX: T83.511A Infection and inflammatory reaction due to indwelling urethral catheter, initial encounter (principal); A41.9 Sepsis, unspecified organism; S37.39XA Other injury of urethra, initial encounter; N30.81 Other cystitis with hematuria; E78.5 Hyperlipidemia, unspecified; I10 Essential (primary) hypertension; D64.9 Anemia, unspecified; D69.6 Thrombocytopenia, unspecified; K21.9 Gastro-esophageal reflux disease without esophagitis; N40.0 Benign prostatic hyperplasia without lower urinary tract symptoms; E83.39 Other disorders of phosphorus metabolism; I25.10 Atherosclerotic heart disease of native coronary artery without angina pectoris; G30.9 Alzheimer's disease, unspecified; F02.80 Dementia in other diseases classified elsewhere, unspecified severity, without behavioral disturbance, psychotic disturbance, mood disturbance, and anxiety; B96.1 Klebsiella pneumoniae [K. pneumoniae] as the cause of diseases classified elsewhere; B96.89 Other specified bacterial agents as the cause of diseases classified elsewhere; B96.20 Unspecified Escherichia coli [E. coli] as the cause of diseases classified elsewhere; Z95.1 Presence of aortocoronary bypass graft; Z88.1 Allergy status to other antibiotic agents; Z95.5 Presence of coronary angioplasty implant and graft; Z88.8 Allergy status to other drugs, medicaments and biological substances; Z79.82 Long term (current) use of aspirin; Z79.899 Other long term (current) drug therapy
CPT/HCPCS: 36415; 70450; 74176; 76770; 80048; 80053; 81015; 83605; 83735; 84100; 84145; 85014; 85018; 85025; 86850; 86900; 86901; 87077; 87086; 87088; 87186; 96361; 96374; 97116; 97161; 97530; 99285; J0692; J0696; J2550; J7030; J7120